=== PATIENT | female | born 1955 | race Caucasian/White ===

== ENCOUNTER → 2017-12-21 09:44 | Outpatient (CLI) | payer SELFPAY | PROVIDERS: Visit Provider Physician Assistant | DX: R39.9 Unspecified symptoms and signs involving the genitourinary system (principal) | CPT/HCPCS: 87086 ==

== ENCOUNTER → 2020-01-07 19:32 | Outpatient (ROUT) | payer OTHER, SELFPAY ==
[2020-01-07 19:37] LABS: Add Manual Diff / Slide Review NO; Basophils Absolute Auto 100 /uL (0-100); Basophils Percent Auto 1.1 % (0-2); Eosinophils Absolute Auto 200 /uL (0-450); Eosinophils Percent Auto 4.4 % (2-4); Hematocrit 41.1 % (36-46); Hemoglobin 14.1 g/dL (12.0-16.0); Lymphocytes Absolute Auto 1200 /uL (1100-4500); Lymphocytes Percent Auto 22.8 % (25-40); Mean Corpuscular HGB Conc 34.3 % (30-36); Mean Corpuscular Hemoglobin 32.3 PG (26-34); Mean Corpuscular Volume 94.1 fL (80-100); Monocytes Absolute Auto 500 /uL (0-900); Neutrophils Absolute Auto 3400 /uL (1500-7000); Neutrophils Percent Auto 61.7 % (50-75); Platelet Count 272 X10^3/uL (150-400); Red Blood Cell Count 4.37 X10^6/uL (4.0-5.2); White Blood Cell Count 5.5 X10^3/uL (4.5-11.0)
[2020-01-07 19:45] LABS: Alanine Aminotransferase 19 IU/L (<35); Albumin 3.7 g/dL (3.5-5.0); Albumin Globulin Ratio 1.2 (1.0-2.8); Alkaline Phosphatase 82 U/L (38-126); Aspartate Aminotransferase 26 IU/L (14-36); BUN Creatinine Ratio 26.4 (6-22); Bilirubin Total 0.4 mg/dL (0.2-1.3); Blood Urea Nitrogen 19 mg/dL (7-17); Carbon Dioxide 34 mmol/L (22-32); Chloride 99 mmol/L (98-107); Cholesterol 177 mg/dL (140-199); Estimated Glomerular Filt Rate > 60.0 mL/min (>60); Glucose 114 mg/dL (80-110); HDL Cholesterol 52 mg/dL (40-60); HEMOLYSIS < 15 (0-50); LDL Cholesterol Calculated 93 mg/dL (<100); Sodium 138 mmol/L (137-145); Total Protein 6.7 g/dL (6.3-8.2); Triglycerides 161 mg/dL (35-150)
[2020-01-07 20:15] LABS: TSH w/ Reflex to FT4 2.01 uIU/mL (0.47-4.68)
== END ==
PROVIDERS: Visit Provider Internal Medicine
DX: I10 Essential (primary) hypertension (principal); E03.9 Hypothyroidism, unspecified; E78.2 Mixed hyperlipidemia
CPT/HCPCS: 80053; 80061; 84443; 85025

== ENCOUNTER → 2020-05-28 19:54 | Outpatient (ROUT) | payer OTHER, SELFPAY | PROVIDERS: Visit Provider Physician Assistant | DX: N39.0 Urinary tract infection, site not specified (principal) | CPT/HCPCS: 87086 ==

== ENCOUNTER → 2020-06-30 18:49 | Outpatient (ROUT) | payer OTHER, SELFPAY ==
[2020-06-30 19:15] LABS: Aspartate Aminotransferase 29 IU/L (14-36); BUN Creatinine Ratio 19.5 (6-22); Blood Urea Nitrogen 15 mg/dL (7-17); Calcium 9.2 mg/dL (8.4-10.2); Carbon Dioxide 36 mmol/L (22-32); Chloride 97 mmol/L (98-107); Cholesterol 171 mg/dL (140-199); Estimated Glomerular Filt Rate > 60.0 mL/min (>60); Glucose 114 mg/dL (80-110); HDL Cholesterol 58 mg/dL (40-60); HEMOLYSIS < 15 (0-50); LDL Cholesterol Calculated 91 mg/dL (<100); Potassium 3.7 mmol/L (3.4-5.1); Sodium 134 mmol/L (137-145); Triglycerides 108 mg/dL (35-150)
[2020-06-30 19:45] LABS: TSH w/ Reflex to FT4 1.72 uIU/mL (0.47-4.68)
== END ==
PROVIDERS: Visit Provider Internal Medicine
DX: I10 Essential (primary) hypertension (principal); E78.2 Mixed hyperlipidemia; E03.9 Hypothyroidism, unspecified
CPT/HCPCS: 80048; 80061; 84443; 84450

== ENCOUNTER → 2020-07-19 10:40 | Outpatient (CLI) | payer OTHER, SELFPAY ==
--- NOTE | 2020-07-19 | DI.ECHO.S_ITS ---
[facility] +---------+ : : [address] : : : : [id number] : : : : Phone: [phone]+ Echocardiogram Report + + :Name: LELIA ARZATE Study Date: 07/19/2020 Height: 64 in : :[facility] ReadingLocation: Weight: 135 lb : : Gender: Female BSA: 1.7 m2 : :: 1955 Age: 65 yrs BP: 140/84 mmHg: :Reason For Study: RIGHTBINFLE-BRANCH BLOCK : :Ordering Physician: ZHANNA, : :ALEX Performed By: Manpreet Riley : :Referring: ALEX CHAO : + + Interpretation Summary Normal both left and right ventricle size and function. The ejection fraction is 60-65%. Mild aortic valve sclerosis. Mild mitral annular calcification. Procedure: A two-dimensional transthoracic echocardiogram with color flow and Doppler was performed. The study quality was technically difficult. There is no prior echocardiogram noted for this patient. The patient was in sinus rhythm with heart rates between 59-67 bpm during the exam. Left Ventricle: The left ventricle is normal in size and wall thickness. The ejection fraction is estimated to be 60-65%. There are no focal wall motion abnormalities. Diastolic function could not be accurately assessed due to unobtainable data. Right Ventricle: The right ventricle is normal in size and function. Atria: Both atria are normal in size. There is no Doppler evidence for an interatrial shunt. Mitral Valve: There is mild mitral annular calcification. There is trace mitral regurgitation. Aortic Valve: There is mild aortic valve sclerosis. There is trace aortic regurgitation. Tricuspid Valve: The tricuspid valve is normal in structure and function. There is a trace or physiologic amount of tricuspid regurgitation. Pulmonary artery pressures cannot be estimated because of the lack of a measurable TR jet velocity but the IVC suggests a CVP of around 3 mmHg. Pulmonic Valve: The pulmonic valve is not well seen, but is grossly normal. There is no pulmonic valvular regurgitation. Great Vessels: The aortic root is normal size. The ascending aorta could not be visualized. The IVC is of normal diameter and collapses greater than 50% with a sniff. This suggests a low right atrial pressure of 3 mm Hg. Pericardium/ Pleura There is no pericardial effusion. There is no pleural effusion. MMode/2D Measurements & Calculations LVIDd: 4.0 cm LVOT diam: 2.1 cm LVIDs: 2.2 cm Ao root diam: 3.5 cm FS: 44.6 % IVSd: 0.93 cm LVPWd: 0.70 cm LV pace. diameter/BSA (cm/m^2): 2.4 LV sys. diameter/BSA (cm/m^2): 1.3 LA A2 area: 7.5 cm2 RA long axis: 4.2 cm LA A4 area: 13.4 cm2 RA area: 12.7 cm2 LA length (vol): 4.6 cm RA vol: 32.6 ml LA vol: 18.6 ml RA : 19.7 ml/m2 LA vol index: 11.2 ml/m2 TAPSE: 2.8 cm Doppler Measurements & Calculations Ao V2 max: 101.4 cm/sec LVOT Max Naseem: 93.6 cm/sec Ao V2 mean: 72.9 cm/sec LV V1 max P.5 mmHg Ao max P.1 mmHg LV V1 VTI: 22.2 cm Ao mean P.3 mmHg ARMANDO(I,D): 3.4 cm2 Ao V2 VTI: 23.5 cm ARMANDO(V,D): 3.3 cm2 sev ratio: 0.95 ARMANDO indexed to BSA (cm^2/m^2): 2.1 MV E max naseem: 75.5 cm/sec PA V2 max: 74.7 cm/sec MV A max naseem: 66.5 cm/sec PA V2 mean: 57.8 cm/sec MV E/A: 1.1 PA mean P.5 mmHg Med Peak E' Naseem: 6.4 cm/sec PA pr(Accel): 30.2 mmHg E/E' med: 11.7 Lat Peak E' Naseem: 6.8 cm/sec E/E' lat: 11.2 E/e' average: 11.4 MV dec time: 0.22 sec SV(LVOT): 80.0 ml Electronically signed by: [place] on Reading Physician:07/19/2020 01:07 PM
== END ==
PROVIDERS: PCP Internal Medicine; Referring Provider Internal Medicine; Visit Provider Internal Medicine
DX: I35.8 Other nonrheumatic aortic valve disorders (principal); I45.10 Unspecified right bundle-branch block
CPT/HCPCS: 93306

== ENCOUNTER → 2020-09-23 10:40 | Outpatient (CLI) | payer OTHER, SELFPAY ==
--- NOTE | 2020-09-23 | DI.MG.S_ITS ---
BILATERAL DIGITAL SCREENING MAMMOGRAM 3D/2D WITH CAD: 09/23/2020 CLINICAL: Routine screening. Comparison is made to exams dated: 06/11/2016 mammogram, 07/29/2018 mammogram, and 09/23/2019 mammogram - outside facility. There are scattered fibroglandular elements in both breasts. Current study was also evaluated with a Computer Aided Detection (CAD) system. No significant masses, calcifications, or other findings are seen in either breast. There has been no significant interval change. IMPRESSION: NEGATIVE There is no mammographic evidence of malignancy. A 1 year screening mammogram is recommended. This exam was interpreted at Station ID: [id number]. NOTE: For mammograms, a report in lay terms will be sent to the patient. Approximately 15% of breast malignancies will not be visualized mammographically. In the management of a palpable breast mass, a negative mammogram must not discourage biopsy of a clinically suspicious lesion. Electronically Signed By: Génesis león/james:09/23/2020 11:43:31 letter sent: Normal Exam ACR BI-RADS Category 1: Negative [id number]
== END ==
PROVIDERS: PCP Internal Medicine; Referring Provider Internal Medicine; Visit Provider Internal Medicine
DX: Z12.31 Encounter for screening mammogram for malignant neoplasm of breast (principal)
CPT/HCPCS: 77063; 77067

== ENCOUNTER → 2020-12-20 13:05 | Outpatient (CLI) | payer OTHER, SELFPAY ==
[2020-12-20 15:53] LABS: COVID19 -Nasal RAPID Negative (Negative)
== END ==
PROVIDERS: PCP Internal Medicine; Visit Provider Physician Assistant
DX: Z20.822 Contact with and (suspected) exposure to COVID-19 (principal); R53.83 Other fatigue
CPT/HCPCS: 87635

== ENCOUNTER → 2021-05-10 14:10 | Outpatient (CLI) | payer OTHER, SELFPAY ==
--- NOTE | 2021-05-10 | DI.RAD.S_ITS ---
PROCEDURE: XR DEXA AXIAL SKELETON INDICATIONS: Encounter for screening for osteoporosis COMPARISON: None. FINDINGS: This blank DEXA report has been sent in error by the PACS system. The correct and complete report will be forthcoming in 1-2 days. Thank you for your patience and understanding. Dictated by: Roseline Jarvis MD, PhD on 05/11/2021 at 17:54 Approved by: Roseline Jarvis MD, PhD on 05/11/2021 at 17:54
== END ==
PROVIDERS: PCP Internal Medicine; Referring Provider Obstetrics & Gynecology; Visit Provider Obstetrics & Gynecology
DX: Z78.0 Asymptomatic menopausal state (principal); Z13.820 Encounter for screening for osteoporosis; E07.9 Disorder of thyroid, unspecified
CPT/HCPCS: 77080

== ENCOUNTER → 2021-05-20 16:04 | Outpatient (CLI) | payer OTHER, SELFPAY ==
--- NOTE | 2021-05-20 16:06 | DI.RAD.S_ITS ---
PROCEDURE: XR ANKLE RT MIN 3V INDICATIONS: right ankle pain TECHNIQUE: 3 views of the ankle were acquired. COMPARISON: None. FINDINGS: Bones: Corticated ossicles adjacent to the medial malleolus consistent with old injury. No evidence of acute fracture. Ankle mortise is maintained. Instrumentation noted associated with the proximal 1st metatarsal, partially imaged Soft tissues: No tibiotalar joint effusion. Achilles tendon appears normal. IMPRESSION: No acute fracture or dislocation. Sequelae of prior medial malleolar injury. First metatarsal instrumentation Approved by: German Maria M.D. on 05/20/2021 at 15:38
== END ==
PROVIDERS: PCP Internal Medicine; Referring Provider Nurse Practitioner Family; Visit Provider Nurse Practitioner Family
DX: M25.571 Pain in right ankle and joints of right foot (principal)
CPT/HCPCS: 73610

== ENCOUNTER → 2022-07-10 12:13 | Outpatient (CLI) | payer OTHER, SELFPAY ==
--- NOTE | 2022-07-10 12:15 | DI.RAD.S_ITS ---
PROCEDURE: XR FOOT LT MIN 3V INDICATIONS: foot pain TECHNIQUE: 3 views of the foot were acquired. COMPARISON: None. FINDINGS: Bones: Markedly abnormal appearance of the 1st metatarsophalangeal joint. There is osteolysis and remodeling of the 1st metatarsal base and 1st metatarsal head. Densities are seen projecting over the joint space that could represent prior silastic implant. Scattered degenerative changes are seen at the interphalangeal joints of the toes. There are moderate to severe degenerative changes at the tarsometatarsal joints and navicular cuneiform articulations. Small posterior calcaneal enthesophyte. Soft tissues: Nonspecific soft tissue edema in the forefoot. IMPRESSION: 1. Abnormal appearance of the 1st metatarsophalangeal joint, which may be related to prior surgery and secondary osteolysis versus possibly a chronic inflammatory or infectious process. Intra-articular or intraosseous mass is not excluded. Recommend correlation with clinical history. Consider MRI of the forefoot for further evaluation. 2. Moderate to severe degenerative changes in the tarsometatarsal joints including dorsally projecting osteophytes. Approved by: Nathanael Frias M.D. on 07/10/2022 at 14:38
== END ==
PROVIDERS: PCP Internal Medicine; Referring Provider Internal Medicine; Visit Provider Internal Medicine
DX: M89.572 Osteolysis, left ankle and foot (principal); M77.32 Calcaneal spur, left foot; M79.672 Pain in left foot
CPT/HCPCS: 73630

== ENCOUNTER → 2022-08-02 10:35 | Outpatient (CLI) | payer OTHER, SELFPAY ==
[2022-08-02 12:53] LABS: Hematocrit 42.8 % (36-46); Mean Corpuscular HGB Conc 35.1 % (30-36); Mean Corpuscular Hemoglobin 32.2 PG (26-34); Mean Corpuscular Volume 91.8 fL (80-100); Platelet Count 264 X10^3/uL (150-400); Red Blood Cell Count 4.67 X10^6/uL (4.0-5.2); Red Cell Distribution Width 13.4 % (11.6-14.8); White Blood Cell Count 5.7 X10^3/uL (4.5-11.0)
[2022-08-02 13:32] LABS: Alanine Aminotransferase 40 IU/L (<35); Albumin 3.9 g/dL (3.5-5.0); Albumin Globulin Ratio 1.3 (1.0-2.8); Alkaline Phosphatase 92 U/L (38-126); Aspartate Aminotransferase 35 IU/L (14-36); BUN Creatinine Ratio 29.3 (6-22); Bilirubin Total 0.4 mg/dL (0.2-1.3); Blood Urea Nitrogen 17 mg/dL (7-17); Calcium 8.8 mg/dL (8.4-10.2); Carbon Dioxide 32 mmol/L (22-32); Chloride 97 mmol/L (98-107); Cholesterol 135 mg/dL (140-199); Estimated Glomerular Filt Rate > 60 mL/min (>60); Globulin 3.1 g/dL (1.7-4.1); Glucose 79 mg/dL (80-110); HDL Cholesterol 63 mg/dL (40-60); HEMOLYSIS < 15 (0-50); LDL Cholesterol Calculated 36 mg/dL (<100); Potassium 4.4 mmol/L (3.4-5.1); Sodium 136 mmol/L (137-145); Triglycerides 178 mg/dL (35-150)
[2022-08-02 13:53] LABS: TSH w/ Reflex to FT4 0.82 uIU/mL (0.47-4.68)
== END ==
PROVIDERS: PCP Internal Medicine; Referring Provider Internal Medicine; Visit Provider Internal Medicine
DX: E03.9 Hypothyroidism, unspecified (principal); E78.2 Mixed hyperlipidemia; I10 Essential (primary) hypertension
CPT/HCPCS: 36415; 80053; 80061; 84443; 85027

== ENCOUNTER → 2022-10-10 14:21 | Outpatient (CLI) | payer OTHER, SELFPAY | PROVIDERS: PCP Internal Medicine; Visit Provider Student in an Organized Health Care Education/Training Program | DX: N39.0 Urinary tract infection, site not specified (principal) | CPT/HCPCS: 87077; 87086; 87186 ==

== ENCOUNTER 2022-10-20 12:32 | Day surgery (SDC) | payer OTHER, SELFPAY ==
[2022-10-20] VITALS (7 sets, daily range): BP systolic 107–155; BP diastolic 42–73; PULSE 59–86; RESP 12–22; TEMP 36.3; O2SAT 96–100; BMI 21.6
--- NOTE | 2022-10-20 | PATH_ITS ---
[facility] Accession Number: [id number] No. of containers..01 Tissue . 01 Material submitted: . colon - DESCENDING COLON POLYP . 01 Diagnosis: Descending Colon Polyp: Superficial portion of colorectal mucosa x1 with a benign lymphoid aggregate and no significant histomorphologic abnormality. Additional levels through the block are non-contributory. MRV 11/01/2022 1701 Local . 01 Electronically signed: . Rylie Thomas MD, Pathologist NPI- [id number] . 01 Gross description: . DESCENDING COLON POLYP: Received in formalin is 1 fragment(s) of luciano, soft tissue measuring 0.2 x 0.2 x 0.2 cm submitted entirely in 1 cassette(s) /SAY 10/27/2022 2335 Local . 01 Pathologist provided ICD-10: K63.5 . 01 CPT . 519126 Specimen Comment: A courtesy copy of this report has been sent to [facility] Performed at: 01 [facility] [address] [place] [address] [address], [place], [place] [id number] MD Ricardo Bhatti MD Phone: [phone]
[2022-10-20] MEDS: LACTATED RINGERS 1,000 ML 42 ML IV (13:22)
--- NOTE | 2022-10-20 14:10 | PM.HP.1 ---
History of Present Illness History of Present Illness Date Patient Seen: 10/20/22 Time Patient Seen: 14:11 Chief complaint: Colonoscopy Narrative: Ms. Archuleta is a 67-year-old female who presents today for a screening colonoscopy. Her last 1 was about 10 years ago in [place], [place]. She believes that she had many diverticula, but no polyps. I did receive the report dated 02/03/[address] Troy Buckley at the [facility] in [facility]. This report notes that there are moderate sigmoid diverticulosis with mychosis (a shortened thickening of the colon due to diverticulitis) as well as a tortuous and spastic colon. No notation of a polyp is seen; 7-10 year follow-up is recommended. She has no family history of colon cancer and no symptoms of bleeding changes in bowel habits or cramping abdominal pain which are concerning to her. She has no further questions or concerns. 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 Diverticular disease of colon (~2005) Essential hypertension Fibromyalgia Generalized anxiety disorder Mixed hyperlipidemia Recurrent UTI Thyroid cancer (~1993) Surgical History Status post foot surgery Status post nasal septoplasty (04/04/17) Status post thyroidectomy (~03/1994) Status post total right knee replacement (09/10/17) Social History household members: spouse Smoking Status: Never smoker alcohol intake: never Meds Home Medications and Allergies Home Medications Medication Instructions Recorded Confirmed Type levothyroxine 100 mcg tablet 100 mcg PO DAILY 07/03/22 10/20/22 History duloxetine 60 mg capsule,delayed 60 mg PO DAILY #90 caps 08/02/22 10/20/22 Rx release ezetimibe 10 mg tablet 10 mg PO DAILY #90 tabs 08/02/22 10/20/22 Rx nitrofurantoin 100 mg PO DAILY PRN uti prevention 08/02/22 10/20/22 Rx monohydrate/macrocrystals 100 mg #30 caps capsule (Macrobid) diclofenac sodium 1 % topical gel 4 g topical QID PRN joint pain 09/14/22 10/20/22 Rx #100 grams irbesartan 75 mg tablet 75 mg PO DAILY #90 tabs 09/14/22 10/20/22 Rx rosuvastatin 40 mg tablet 40 mg PO DAILY #90 tabs 09/14/22 10/20/22 Rx peg 3350-electrolytes 236 240 ml PO Q10M #4,000 mL 10/16/22 10/20/22 Rx gram-22.74 gram-6.74 gram-5.86 gram solution (Golytely) Allergies Allergy/AdvReac Type Severity Reaction Status Date / Time phenylephrine AdvReac Mild Hypertensio Verified 10/20/22 12:57 n Exam Vital Signs (past 8 hours): - 10/20/22 13:03 Temperature 97.3 F L Pulse Rate 66 Respiratory Rate 16 Blood Pressure 155/66 H Pulse Oximetry 98 Oxygen Delivery Method Room Air Oxygen Delivery Method Room Air Const General: cooperative, healthy appearing, comfortable and well developed Orientation: alert, awake and oriented x3 HENMT Head: normal to inspection Ears: hearing grossly normal bilaterally Eyes General: appearance normal, both eyes and all related structures Resp Effort & Inspection: normal respiratory effort and able to speak in complete sentences GI Palpation: soft and No tender Assessment & Plan Assessment and plan (1) Colon cancer screening: Status: Acute Assessment & Plan narrative: Presents today for screening colonoscopy I discussed the risks benefits and alternatives including but not limited to perforation of the colon and an incomplete exam she fully understands these risks and would like to proceed.
--- NOTE | 2022-10-20 15:00 | PM.OP.COLON ---
Operative Date/Time/Diagnoses Date of procedure: 10/20/22 Time of procedure: 15:01 Pre-op diagnosis: Colonoscopy screening Post-op diagnosis: same Procedure & Clinicians Study performed: Colonoscopy and biopsy Indications: Screening for colon cancer average risk Surgeon: Tiffanie Rich Procedure Notes Procedure in detail: Patient was taken to the endoscopy suite and placed in a left lateral decubitus position. A time-out was performed. With the help of anesthesiology provider, conscious sedation was induced and monitored throughout the case. A digital rectal exam was performed and there were no masses or strictures. The colonoscope was introduced into the anal canal and advanced through to the cecum. There were several large extreme diverticula. The sigmoid colon was very tortuous and somewhat difficult to traverse. Several diverticula photographs were obtained. The scope was successfully maneuvered through the entire colon and a photograph of the appendiceal orifice was obtained. The bowel prep was good [place] bowel prep score of 2. The scope was then withdrawn for a total of 14 minutes and only 1 very small polyp was seen in the descending colon was removed and sent for pathology.. The scope was then retroflexed and a photograph of the internal hemorrhoidal piles was obtained. Findings: divertiulosis and polyp(s) Specimen(s): other (One very small descending colon polyp) Impression: Serious diverticula in the sigmoid colon Post-procedure Plan for aftercare: 7-10 year follow-up based on pathology results. Given this was a small polyp probably going to end up in the 10 year range. There were huge diverticula and I strongly recommend a twice daily fiber supplement.
== END 2022-10-20 16:03 | disposition home or self-care (01) ==
PROVIDERS: PCP Internal Medicine; Referring Provider Surgery; Visit Provider Surgery
PROC: 0DJD8ZZ Inspection of Lower Intestinal Tract, Via Natural or Artificial Opening Endoscopic (ICD-10-PCS; CPT 45378; principal; 2022-10-20 13:45)
DX: Z12.11 Encounter for screening for malignant neoplasm of colon (principal); K57.30 Diverticulosis of large intestine without perforation or abscess without bleeding
CPT/HCPCS: 45380; J2704

== ENCOUNTER → 2022-10-25 14:00 | Outpatient (CLI) | payer OTHER, SELFPAY ==
[2022-10-25 15:07] LABS: Appearance Urine UA CLEAR; Bilirubin Urine UA NEGATIVE (NEGATIVE); Color Urine UA YELLOW; Glucose Urine UA NEGATIVE (Negative); Ketones Urine UA NEGATIVE (NEGATIVE); Leukocyte Esterase Urine UA 1+ (NEGATIVE); Nitrite Urine UA NEGATIVE (Negative); Occult Blood Urine UA NEGATIVE (Negative); Protein Urine UA NEGATIVE (Negative); Specific Gravity Urine UA <=1.005 (1.000-1.035); Urobilinogen Urine UA 0.2 E.U./dL (0.2)
[2022-10-25 15:16] LABS: Bacteria Urine Occasional (0-1); Culture Indicated Urine Specimen Cultured; RBC Urine 0-1/HPF (0-5/HPF); Squamous Epithelial Cell Urine 0-1 /HPF (0-5/HPF); WBC Urine 1-5/HPF (0-5/HPF)
== END ==
PROVIDERS: PCP Internal Medicine; Referring Provider Internal Medicine; Visit Provider Internal Medicine
DX: N39.0 Urinary tract infection, site not specified (principal)
CPT/HCPCS: 81001; 87086

== ENCOUNTER → 2022-11-16 10:19 | Outpatient (CLI) | payer OTHER, SELFPAY ==
[2022-11-16 12:22] LABS: Appearance Urine UA CLEAR; Bilirubin Urine UA NEGATIVE (NEGATIVE); Color Urine UA YELLOW; Glucose Urine UA NEGATIVE (Negative); Ketones Urine UA NEGATIVE (NEGATIVE); Leukocyte Esterase Urine UA NEGATIVE (NEGATIVE); Nitrite Urine UA NEGATIVE (Negative); Occult Blood Urine UA NEGATIVE (Negative); Protein Urine UA NEGATIVE (Negative); Specific Gravity Urine UA <=1.005 (1.000-1.035); Urobilinogen Urine UA 0.2 E.U./dL (0.2)
[2022-11-16 12:47] LABS: Bacteria Urine None Seen; RBC Urine 0-1/HPF (0-5/HPF); Squamous Epithelial Cell Urine 0-1 /HPF (0-5/HPF); WBC Urine None Seen (0-5/HPF)
[2022-11-16 12:48] LABS: Culture Indicated Urine Cult Not Indicated
== END ==
PROVIDERS: PCP Internal Medicine; Referring Provider Internal Medicine; Visit Provider Internal Medicine
DX: R30.0 Dysuria (principal); R35.0 Frequency of micturition
CPT/HCPCS: 81001

== ENCOUNTER → 2022-12-15 17:32 | Outpatient (CLI) | payer OTHER, SELFPAY | PROVIDERS: PCP Internal Medicine; Visit Provider Physician Assistant | DX: R30.0 Dysuria (principal) | CPT/HCPCS: 87077; 87086; 87186 ==

== ENCOUNTER 2023-03-14 09:40 | Emergency (ER) | payer OTHER, SELFPAY ==
[2023-03-14] VITALS (11 sets, daily range): BP systolic 154–186; BP diastolic 68–83; PULSE 62–73; RESP 17–24; TEMP 36.8; O2SAT 97–98; BMI 21.6
--- NOTE | 2023-03-14 09:50 | DI.RAD.S_ITS ---
PROCEDURE: XR CHEST 1V INDICATIONS: chest pain TECHNIQUE: One view of the chest was acquired. COMPARISON: None. FINDINGS: Surgical changes and devices: None. Lungs and pleura: Lungs are clear. No pleural effusions or pneumothorax. Mediastinum: Mediastinal contours appear normal. Heart size is normal. Bones and chest wall: No suspicious bony lesions. Overlying soft tissues appear unremarkable. IMPRESSION: No acute cardiopulmonary findings. Dictated by: Claudia Montes De Oca M.D. on 03/14/2023 at 10:24 Approved by: Claudia Montes De Oca M.D. on 03/14/2023 at 10:25
--- NOTE | 2023-03-14 10:10 | ED.CHESTPAIN ---
HPI - Chest Pain General Chief Complaint: Chest Pain Stated Complaint: sent by [facility] slight chest pressure/tiredness/spacey Time Seen by Provider: 03/14/23 09:48 Source: patient, RN notes reviewed and old records reviewed Mode of arrival: Ambulatory Limitations: no limitations History of Present Illness HPI narrative: 67-year-old female history of hypertension, dyslipidemia, prior thyroid cancer with thyroidectomy on levothyroxine presents with complaint of feeling tired sort of spacey with what she describes as slight substernal chest pressure starting last night that has not been constant but intermittent with no shortness of breath. She is felt chilled last night but had no fevers, no cold cough or congestion. Denies any nausea or vomiting. Denies any diaphoresis. Patient states just felt tired after going grocery shopping yesterday morning slept for most of the day developed some chest pressure last night which is present this morning. She states it is currently not present at the moment. Denies any diarrhea or constipation, no swelling in extremities, no warmth or cramping in her legs. No issues with urination. Patient states she is had prior surgeries with thyroidectomy, right total knee, septoplasty for her sinuses and toe surgery x5 for arthritis. Adverse reaction to phenylephrine but no allergies. No tobacco, alcohol or illicit. Dr. Lo is her primary care. Patient has never had prior stress test or cardiac workup. She states her father in his late 60s from complications from a CABG. Patient does note they recently flew across the country she towards the end of January beginning of February all the way to the [facility] and back. She also notes that she would recent upper respiratory infection as beginning of the month was on Breo, as well as albuterol until the 09 of March and has felt improved since then until the last 24 hours. Related Data Home Medications Medication Instructions Recorded Confirmed L. acidophilus/Bifid. animalis 1 tab PO DAILY 01/03/23 03/14/23 [Daily Probiotic] dextrin [Fiber (dextrin)] 1 tsp PO DAILY 01/03/23 03/14/23 Previous Rx's Medication Instructions Recorded duloxetine 60 mg capsule,delayed 60 mg PO DAILY #90 caps 08/02/22 release ezetimibe 10 mg tablet 10 mg PO DAILY #90 tabs 08/02/22 nitrofurantoin 100 mg PO DAILY PRN uti prevention 08/02/22 monohydrate/macrocrystals 100 mg #30 caps capsule (Macrobid) diclofenac sodium 1 % topical gel 4 g topical QID PRN joint pain 09/14/22 #100 grams irbesartan 75 mg tablet 75 mg PO DAILY #90 tabs 09/14/22 rosuvastatin 40 mg tablet 40 mg PO DAILY #90 tabs 09/14/22 levothyroxine 100 mcg tablet 100 mcg PO DAILY #90 tabs 10/23/22 Allergies Allergy/AdvReac Type Severity Reaction Status Date / Time phenylephrine AdvReac Mild Hypertensio Verified 03/14/23 09:23 n Review of Systems Review of Systems ROS Unobtainable: All systems reviewed & are unremarkable except as noted in HPI and below Patient History Medical History Chronic low back pain Hx of papillary thyroid carcinoma Urinary incontinence Menopausal syndrome Recurrent UTI Degenerative arthritis of toe joint Fibromyalgia Generalized anxiety disorder Diverticular disease of colon (~2005) Acquired hypothyroidism Mixed hyperlipidemia Essential hypertension Degenerative joint disease of left ankle Surgical History Status post total right knee replacement (09/10/17) Status post nasal septoplasty (04/04/17) Status post thyroidectomy (~03/1994) Status post foot surgery Social History household members: spouse Smoking Status: Never smoker alcohol intake: never Smoking Status: Never smoker Substance Use Type: does not use Exam Narrative Exam Narrative: GEN: well nourished, well appearing female, alert and oriented x 3, patient appears to be in mild distress. HEENT: Atraumatic, pupils are equal round reactive to light, extraocular movements are intact, nares are clear, there is no conjunctival pallor. Throat is clear without any exudates, erythema, tonsillar enlargement or uvular deviation HEART: Regular rate and rhythm without murmur, clicks, rubs. Pulses equal bilateral lower extremities LUNGS:Lungs clear to auscultation, no wheezes, rales, crackles, chest moves symmetrically, no tachypnea or accessory muscle use, no swelling bilateral lower extremities or pedal edema. ABD:bowel sounds normal, soft, non-tender, no guarding, rebound, rigidity, no masses noted, no hepatosplenomegaly :No CVA tenderness MSCL: Non-tender, no muscle atrophy, muscles strength 5/5 upper and lower extremities, full range of motion, normal gait NEURO:CN 2-12 intact, sensation normal SKIN: No rash, erythema or other skin changes. Initial Vital Signs Initial Vital Signs: Vital Signs Temperature 98.3 F 03/14/23 09:45 Pulse Rate 70 03/14/23 09:45 Respiratory Rate 18 03/14/23 09:45 Blood Pressure 166/78 H 03/14/23 09:45 Pulse Oximetry 98 03/14/23 09:45 Oxygen Delivery Method Room Air 03/14/23 09:45 Course Orders Ordered: ED Orders 03/14/23 09:50 XR chest 1V Stat EKG-12 Lead Stat 03/14/23 10:08 BNP [NT-proBNP (BNP-Adult 18+)] Stat Complete Blood Count AUTO DIFF Stat Comprehensive Metabolic Panel Stat Lipase Stat Magnesium Stat PTT Partial Thromboplastin Jacob Stat Prothrombin Time INR Stat Troponin & CK Cardiac Panel Stat 03/14/23 10:16 Covid-19 + FLU A/B + RSV - PCR Stat 03/14/23 11:13 D Dimer Stat 03/14/23 12:08 Trop I [Troponin I] Stat 03/14/23 12:15 EKG-12 Lead Routine Discontinued Medications Aspirin (Aspirin 81 Mg Chew Tab) 324 mg PO NOW ONE Stop: 03/14/23 09:51 Last Admin: 03/14/23 11:53 Dose: Not Given Documented By: RLS Vital Signs Vital signs: Vital Signs - 8 hr 03/14/23 10:00 03/14/23 10:08 03/14/23 10:08 Pulse Rate 64 63 Respiratory Rate 20 Blood Pressure 177/79 H Pulse Oximetry 98 Oxygen Delivery Method Room Air 03/14/23 10:30 03/14/23 10:30 03/14/23 11:00 Pulse Rate 65 65 Respiratory Rate 17 Blood Pressure 186/77 H Pulse Oximetry 98 98 Oxygen Delivery Method 03/14/23 11:30 03/14/23 12:00 03/14/23 12:00 Pulse Rate 63 63 Respiratory Rate 21 23 Blood Pressure 176/81 H Pulse Oximetry 98 97 Oxygen Delivery Method Room Air 03/14/23 12:30 03/14/23 12:30 03/14/23 13:00 Pulse Rate 62 63 Respiratory Rate 23 21 Blood Pressure 177/83 H Pulse Oximetry 97 Oxygen Delivery Method Room Air 03/14/23 13:30 03/14/23 14:04 Pulse Rate 73 69 Respiratory Rate 24 18 Blood Pressure 154/68 H Pulse Oximetry 97 Oxygen Delivery Method Room Air MDM - Chest Pain Lab Data 03/14/23 10:08 03/14/23 10:08 Labs: Lab Results 03/14/23 03/14/23 03/14/23 Range/Units 10:08 10:16 11:13 WBC 5.0 (4.5-11.0) X10^3/uL RBC 4.65 (4.0-5.2) X10^6/uL Hgb 14.8 (12.0-16.0) g/dL Hct 43.4 (36-46) % MCV 93.4 (80-100) fL MCH 31.9 (26-34) PG MCHC 34.1 (30-36) % RDW 13.0 (11.6-14.8) % Plt Count 257 (150-400) X10^3/uL Neut % (Auto) 66.3 (50-75) % Lymph % (Auto) 21.8 L (25-40) % [place] % (Auto) 7.7 (3-14) % Eos % (Auto) 3.5 (2-4) % Baso % (Auto) 0.7 (0-2) % Neut # (Auto) 3300 (0132-0356) /uL Lymph # (Auto) 1100 (0930-3369) /uL [place] # (Auto) 400 (0-900) /uL Eos # (Auto) 200 (0-450) /uL Baso # (Auto) 0 (0-100) /uL PT 11.5 (9.4-12.5) SECONDS INR 1.0 (0.9-1.3) APTT 32 (25.1-36.5) SECONDS D-Dimer 465 (<500) ng/ml Sodium 135 L (137-145) mmol/L Potassium 3.7 (3.4-5.1) mmol/L Chloride 96 L (98-107) mmol/L Carbon Dioxide 35 H (22-32) mmol/L BUN 11 (7-17) mg/dL Creatinine 0.61 (0.52-1.04) mg/dL Estimated GFR > 60 (>60) mL/min BUN/Creatinine Ratio 18.0 (6-22) Glucose 98 (80-110) mg/dL Calcium 9.0 (8.4-10.2) mg/dL Magnesium 2.0 (1.6-2.3) mg/dL Total Bilirubin 0.7 (0.2-1.3) mg/dL AST 31 (14-36) IU/L ALT 27 (<35) IU/L Alkaline Phosphatase 67 (38-126) U/L Total Creatine Kinase 93 (30-135) U/L Troponin I < 0.012 (0.01-0.034) ng/mL NT-Pro-B Natriuret Pep 103 (<125) pg/mL Total Protein 7.3 (6.3-8.2) g/dL Albumin 4.0 (3.5-5.0) g/dL Globulin 3.3 (1.7-4.1) g/dL Albumin/Globulin Ratio 1.2 (1.0-2.8) Lipase 79 (23-300) U/L SARS-CoV-2 (PCR) Negative (Negative) Influenza A (RT-PCR) Flu a negative (NEGATIVE) Influenza B (RT-PCR) Flu b negative (NEGATIVE) RSV (PCR) Negative (Negative) 03/14/23 Range/Units 12:08 WBC (4.5-11.0) X10^3/uL RBC (4.0-5.2) X10^6/uL Hgb (12.0-16.0) g/dL Hct (36-46) % MCV (80-100) fL MCH (26-34) PG MCHC (30-36) % RDW (11.6-14.8) % Plt Count (150-400) X10^3/uL Neut % (Auto) (50-75) % Lymph % (Auto) (25-40) % [place] % (Auto) (3-14) % Eos % (Auto) (2-4) % Baso % (Auto) (0-2) % Neut # (Auto) (3221-2786) /uL Lymph # (Auto) (1657-8619) /uL [place] # (Auto) (0-900) /uL Eos # (Auto) (0-450) /uL Baso # (Auto) (0-100) /uL PT (9.4-12.5) SECONDS INR (0.9-1.3) APTT (25.1-36.5) SECONDS D-Dimer (<500) ng/ml Sodium (137-145) mmol/L Potassium (3.4-5.1) mmol/L Chloride (98-107) mmol/L Carbon Dioxide (22-32) mmol/L BUN (7-17) mg/dL Creatinine (0.52-1.04) mg/dL Estimated GFR (>60) mL/min BUN/Creatinine Ratio (6-22) Glucose (80-110) mg/dL Calcium (8.4-10.2) mg/dL Magnesium (1.6-2.3) mg/dL Total Bilirubin (0.2-1.3) mg/dL AST (14-36) IU/L ALT (<35) IU/L Alkaline Phosphatase (38-126) U/L Total Creatine Kinase (30-135) U/L Troponin I 0.014 (0.01-0.034) ng/mL NT-Pro-B Natriuret Pep (<125) pg/mL Total Protein (6.3-8.2) g/dL Albumin (3.5-5.0) g/dL Globulin (1.7-4.1) g/dL Albumin/Globulin Ratio (1.0-2.8) Lipase (23-300) U/L SARS-CoV-2 (PCR) (Negative) Influenza A (RT-PCR) (NEGATIVE) Influenza B (RT-PCR) (NEGATIVE) RSV (PCR) (Negative) Imaging Data Chest x-ray: Radiologist's Impression: Close Chest X-Ray (Signed) Claudia Montes De Oca - 03/14/23 DI Result CC 11/20/22 Foot X-Ray (Signed) Nathanael Frias - 07/10/22 Ankle X-Ray (Signed) German Maria - 05/20/21 Bone Densitometry (Signed) Roseline Jarvis - 05/10/21 Mammogram Screening (Signed) Génesis Romeo - 09/23/20 Echocardiogram Ultrasound (Signed) [place] - 03/29/21 Launch?[address] [address] XRay Report Signed Patient: Emily Archuleta MR#: [id number] : 1955 Acct:[id number] Age/Sex: 67 / F Date of Service: 03/14/23 Loc: ED Accession Number: [id number] Procedure: XR chest 1V Ordering Provider: Tiana Almodovar D.O. PROCEDURE: XR CHEST 1V INDICATIONS: chest pain TECHNIQUE: One view of the chest was acquired. COMPARISON: None. FINDINGS: Surgical changes and devices: None. Lungs and pleura: Lungs are clear. No pleural effusions or pneumothorax. Mediastinum: Mediastinal contours appear normal. Heart size is normal. Bones and chest wall: No suspicious bony lesions. Overlying soft tissues appear unremarkable. IMPRESSION: No acute cardiopulmonary findings. Dictated by: Claudia Montes De Oca M.D. on 03/14/2023 at 10:24 Approved by: Claudia Montes De Oca M.D. on 03/14/2023 at 10:25 ECG Data Attestation: I personally reviewed and interpreted this ECG as follows: Prior ECG tracings: not available for review Interpretation: Sinus rhythm rate of 65 [place] 172 QRS of 144 QTC of 465. No acute ST elevation appreciated, patient has RSR consistent with right bundle-branch. No priors available for comparison. EKG 2. rate of 61, pr 164, qrs 152, qtc 486. No acute ST changes. RBBB. No dynamic changes. MDM Narrative Medical decision making narrative: 67-year-old female with history of hypertension, dyslipidemia, recent travel patient does not appear to have any obvious upper respiratory symptoms, CBC shows no acute change no leftward shift, coags are negative, renal function electrolytes are appropriate. BNP and troponin are both negative. LFTs are negative lipase is negative for flex COVID/influenza/RSV is negative. EKG shows right bundle-branch block no priors for comparison. Chest x-ray showed no acute change. Patient has had recent long-distance travel does not appear to have any tachycardia, hypoxia but is not anticoagulated any form including aspirin. D-dimer was ordered and is negative. Repeat troponin negative but did trend upwards. Repeat EKG is negative. Discussed with patient about observation for chest pain observation. We do not have stress testing available tomorrow. After discussion with patient she would rather be discharged home for follow up outpatient rather than attempt to transfer to facility that would have stress testing in the next 24 hours. Discussed return precautions. Patient will take an 81 mg aspirin daily and reach out to her primary care today to set up follow-up for stress testing as an outpatient. Discharge Plan Departure Patient Disposition: Home Clinical Impression: Chest pain Instructions: DI for Chest Pain Activity Restrictions/Additional Instructions: Follow-up with your physician for recheck and discussion about stress testing. Please return for new or worsening symptoms recurrent chest pain or pressure, shortness of breath, lightheadedness or passing out, persistent nausea or vomiting new swelling in your extremities or other new or concerning changes. Prescriptions: No Action diclofenac sodium 1 % gel 4 g topical QID PRN (Reason: joint pain) Qty: 100 0RF Rx Instructions: apply to single elbow, wrist or hand; for hand includes palm/fingers/back of hand irbesartan 75 mg tablet 75 mg PO DAILY Qty: 90 3RF rosuvastatin 40 mg tablet 40 mg PO DAILY Qty: 90 3RF levothyroxine 100 mcg tablet 100 mcg PO DAILY Qty: 90 3RF duloxetine 60 mg capsule,delayed release(DR/EC) 60 mg PO DAILY Qty: 90 3RF ezetimibe 10 mg tablet 10 mg PO DAILY Qty: 90 3RF nitrofurantoin monohyd/m-cryst [Macrobid] 100 mg capsule 100 mg PO DAILY PRN (Reason: uti prevention) Qty: 30 5RF Rx Instructions: prior to sexual intercourse. L. acidophilus/Bifid. animalis [Daily Probiotic] 1 tab PO DAILY dextrin [Fiber (dextrin)] 1 tsp PO DAILY Referrals: Juancarlos Lo MD [Primary Care Provider] - Stand Alone Forms: Patient Portal/API
[2023-03-14 10:16] LABS: Add Manual Diff / Slide Review NO; Basophils Absolute Auto 0 /uL (0-100); Basophils Percent Auto 0.7 % (0-2); Eosinophils Absolute Auto 200 /uL (0-450); Eosinophils Percent Auto 3.5 % (2-4); Hematocrit 43.4 % (36-46); Hemoglobin 14.8 g/dL (12.0-16.0); Lymphocytes Absolute Auto 1100 /uL (1100-4500); Lymphocytes Percent Auto 21.8 % (25-40); Mean Corpuscular HGB Conc 34.1 % (30-36); Mean Corpuscular Hemoglobin 31.9 PG (26-34); Mean Corpuscular Volume 93.4 fL (80-100); Monocytes Absolute Auto 400 /uL (0-900); Monocytes Percent Auto 7.7 % (3-14); Neutrophils Absolute Auto 3300 /uL (1500-7000); Neutrophils Percent Auto 66.3 % (50-75); Platelet Count 257 X10^3/uL (150-400); Red Blood Cell Count 4.65 X10^6/uL (4.0-5.2)
[2023-03-14 10:23] LABS: Prothrombin Time 11.5 SECONDS (9.4-12.5)
[2023-03-14 10:26] LABS: PTT Partial Thromboplastin Tim 32 SECONDS (25.1-36.5)
[2023-03-14 10:28] LABS: Alanine Aminotransferase 27 IU/L (<35); Albumin Globulin Ratio 1.2 (1.0-2.8); Alkaline Phosphatase 67 U/L (38-126); Aspartate Aminotransferase 31 IU/L (14-36); Bilirubin Total 0.7 mg/dL (0.2-1.3); Blood Urea Nitrogen 11 mg/dL (7-17); Carbon Dioxide 35 mmol/L (22-32); Chloride 96 mmol/L (98-107); Creatine Kinase 93 U/L (30-135); Estimated Glomerular Filt Rate > 60 mL/min (>60); Globulin 3.3 g/dL (1.7-4.1); Glucose 98 mg/dL (80-110); HEMOLYSIS < 15 (0-50); Lipase 79 U/L (23-300); Potassium 3.7 mmol/L (3.4-5.1); Sodium 135 mmol/L (137-145); Total Protein 7.3 g/dL (6.3-8.2)
[2023-03-14 10:37] LABS: NT-proBNP (BNP-Adult 18+) 103 pg/mL (<125)
[2023-03-14 10:40] LABS: Troponin I < 0.012 ng/mL (0.01-0.034)
[2023-03-14 11:02] LABS: Influenza A - CEPHEID Flu A NEGATIVE (NEGATIVE); Influenza B - CEPHEID Flu B NEGATIVE (NEGATIVE); Respiratory Syncytial Virus Negative (Negative)
[2023-03-14 11:12] LABS: COVID-19 CEPHEID 4-PLEX PCR Negative (Negative)
[2023-03-14 12:25] LABS: D Dimer 465 ng/ml (<500)
[2023-03-14 12:50] LABS: Troponin I 0.014 ng/mL (0.01-0.034)
== END 2023-03-14 14:05 | disposition home or self-care (01) ==
PROVIDERS: Emergency Provider Emergency Medicine; PCP Internal Medicine
DX: R07.9 Chest pain, unspecified (principal); R53.83 Other fatigue
CPT/HCPCS: 0241U; 36415; 71045; 80053; 82550; 83690; 83735; 83880; 84484; 85025; 85379; 85610; 85730; 93005; 93010; 99284

== ENCOUNTER → 2023-04-09 11:55 | Outpatient (CLI) | payer OTHER, SELFPAY ==
[2023-04-09 12:15] LABS: Appearance Urine UA CLEAR; Bilirubin Urine UA NEGATIVE (NEGATIVE); Color Urine UA YELLOW; Glucose Urine UA NEGATIVE (Negative); Ketones Urine UA NEGATIVE (NEGATIVE); Leukocyte Esterase Urine UA 1+ (NEGATIVE); Nitrite Urine UA NEGATIVE (Negative); Occult Blood Urine UA TRACE-INTACT (Negative); Protein Urine UA NEGATIVE (Negative); Specific Gravity Urine UA <=1.005 (1.000-1.035); Urobilinogen Urine UA 0.2 E.U./dL (0.2)
[2023-04-09 12:20] LABS: Bacteria Urine None Seen; RBC Urine None Seen (0-5/HPF); Squamous Epithelial Cell Urine 0-1 /HPF (0-5/HPF); WBC Urine 1-5/HPF (0-5/HPF)
[2023-04-09 12:21] LABS: Culture Indicated Urine Cult Not Indicated
== END ==
PROVIDERS: PCP Internal Medicine; Visit Provider Nurse Practitioner Family
DX: R30.0 Dysuria (principal); N39.0 Urinary tract infection, site not specified
CPT/HCPCS: 81001; 87086

== ENCOUNTER → 2023-04-26 10:13 | Outpatient (CLI) | payer OTHER, SELFPAY | PROVIDERS: Family Provider Internal Medicine; PCP Internal Medicine; Visit Provider Physician Assistant | DX: R30.0 Dysuria (principal); R35.0 Frequency of micturition | CPT/HCPCS: 87077; 87086; 87186 ==

== ENCOUNTER → 2023-05-03 08:59 | Outpatient (CLI) | payer OTHER, SELFPAY ==
--- NOTE | 2023-05-03 21:20 | DI.NM.S_ITS ---
DATE OF SERVICE: 05/03/2023 PROCEDURE: Exercise treadmill stress and rest myocardial perfusion imaging with gating to assess ejection fraction and regional wall motion. INDICATIONS: The patient is a 67-year-old female with atypical chest discomfort. CARDIAC STRESS: The patient was able to exercise for 8 minutes, 1 second on a standard Alex protocol suggesting excellent exercise capacity with an GURJIT of -30%. She had a normal heart rate response to exercise, achieving a maximum heart rate of 153 BPM (100% of her predicted maximum). She had a mild hypertensive blood pressure response with a resting blood pressure of 160/80, increasing to a maximum of 210/90. She had no chest discomfort or other anginal symptoms. Her resting ECG shows a RBBB and mild nonspecific inferior ST-segment abnormalities but there are no significant ST-segment shifts with exercise. There were no concerning arrhythmias. At 6 minutes, 40 seconds of exercise at a heart rate of 150 BPM, 26.4 mCi of technetium-99m Myoview was injected and she was imaged 10 minutes later using gated SPECT acquisition protocol. Earlier in the day while at rest, she had been injected with 11.4 mCi of technetium-99m Myoview and was imaged 15 minutes later, again using gated SPECT acquisition protocol. FINDINGS: 1. Raw data. There appears to be good myocardial tracer uptake without any significant artifact. The lung/heart ratio is normal at 0.29 with a normal TID ratio of 0.66. 2. Quantitated gated SPECT: Post-stress ejection fraction is estimated at 92%, likely an overestimate due to relatively small left ventricular volumes. There are no focal wall motion abnormalities. Resting ejection fraction is also 92% with a resting end-diastolic volume of 75 mL. 3. Myocardial perfusion imaging: Post-stress supine images shows a fairly normal myocardial perfusion pattern, although with a very subtle defect in the distal anterior wall, sparing the apex in a pattern that would be consistent with attenuation artifact, although the defect persists to a slight degree on the prone images. The resting images show an identical perfusion pattern without any significant improvement in the defect. IMPRESSION: 1. Probable normal myocardial perfusion study. 2. Small, subtle, fixed distal anterior defect that most likely reflects attenuation artifact although it persists to a slight degree on the prone images. While a previous nontransmural infarction cannot be entirely excluded, this is unlikely given the brisk contractility in this area. There is no evidence for any myocardial ischemia. 3. High normal left ventricular systolic function without any focal wall motion abnormality and relatively small left ventricular volumes. 4. Excellent exercise capacity without angina or ECG evidence of ischemia. She had a mild hypertensive blood pressure response to exercise. Emily Archuleta - DAWNA/melva/ doc#: [id number]/job#: [id number] dd: 05/03/2023 16:04:00 dt: 05/03/2023 20:36:00 DICTATING MD/COPIES TO: Fermin Lopez MD; Juancarlos Lo MD COPIES MNE: BR[place];
== END ==
LOC: NUCM 08:59
PROVIDERS: Family Provider Internal Medicine; PCP Internal Medicine; Referring Provider Internal Medicine; Visit Provider Internal Medicine
DX: R07.89 Other chest pain (principal)
CPT/HCPCS: 78452; 93017; A9502

== ENCOUNTER 2023-07-27 09:45 | Outpatient (RCR) | payer OTHER, SELFPAY ==
--- NOTE | 2023-05-08 16:41 | PT.OIE ---
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 Diverticular disease of colon (~2005) Essential hypertension Fibromyalgia Generalized anxiety disorder Hx of papillary thyroid carcinoma Menopausal syndrome Mixed hyperlipidemia Recurrent UTI Urinary incontinence Past Surgical History (Last Reviewed 04/27/23 @ 10:34 by Anum Faey PA-C) Status post foot surgery Status post nasal septoplasty (04/04/17) Status post thyroidectomy (~03/1994) Status post total right knee replacement (09/10/17) Visit Care Team Role Provider Type Juancarlos Lo MD Family Provider Physician Primary Care Provider Specialty: Internal Medicine Address: [address] [place] [address], [id number] Email: [email or web address] Tari Mora MD Attending Provider Non-Staff Referring Provider Specialty: Urology Address: [address] [place] [address], [id number] Email: Physical Therapy Initial Evaluation PT-OP-A Visit Information Start: 04/27/23 18:02 Freq: Status: Active Protocol: Document 05/08/23 07:32 LRN (Rec: 05/08/23 08:20 LRN [id number]) Out-Patient Physical Therapy Visit Information Visit Information Visit Type Initial Evaluation Visit Start Time 07:32 Visit Stop Time 08:17 Total Visit Minutes 45 Visit Number 1 Evaluation Information Evaluation Date 05/08/23 Precautions Precautions Fibromyalgia, Thyroidectomy due to Cancer. PT-OP-B Current Condition Start: 04/27/23 18:02 Freq: Status: Active Protocol: Document 05/08/23 07:32 LRN (Rec: 05/08/23 08:20 LRN [id number]) Current Condition History of Current Condition Onset Date summer Current Complaints Urinary frequency, frequent UTI's since 1988. History of Current Condition Last year started to have dribbling and increased UTI's initiating pt to see Dr. Tari Mora (urologist - ) andwas found to be retaining 30 cc of urine. She was started on estrogen cream and sent to PT. Last month She has had 3-4 UTI's in the past year and just finished having one. She has urinary leakage with an urge. 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 G2, P2, both were vaginal births (1990, 1993), . Treatment Goals Patient/Caregiver Goals Pt goals No urinary leakage and no dribbling. straighten things to emptly bladder completely have fewer UTI's. increase PF strength. Personal Factors Other Personal Factors That May Effect Fibromyalgia, back pain, R Therapy/Recovery knee replacement PT-OP-I Pelvic Floor Start: 04/27/23 18:02 Freq: Status: Active Protocol: Document 05/08/23 07:32 LRN (Rec: 05/08/23 08:20 LRN [id number]) Pelvic Floor Assessment Urine Urinary Symptoms Dribbling After Urination, Incomplete Emptying Leakage Size Small Leakage Cause Urge Leaks Per Day 1 every 2-3 days. Voiding Frequency 11-14 Nocturia 1 Pads Used In 24 Hours 1 Urine Pad Type Panty Liner Bowel Bowel Surgery No Other Bowel Symptoms None. Bowel Movement Frequency 1/day [place] Stool Chart Comments Type 2-3 Pelvic Clock Pelvic Clock 12-3 Atrophy Pelvic Clock 3-6 Atrophy Pelvic Clock 6-9 Atrophy Pelvic Clock 9-12 Atrophy Prolapse Rectocele Grade 1 Perineal Descent Resting Absent Bearing Present Contraction Ability Manual Muscle Testing Left 1 Manual Muscle Testing Right 0 Manual Muscle Testing Anterior 0 Manual Muscle Testing Posterior 1 Muscle Endurance (Seconds) 1 Number of Quick Contractions In 10 3 Seconds PT-OP-J Posture/Palpation/Skin Start: 04/27/23 18:02 Freq: Status: Active Protocol: Document 05/08/23 07:32 LRN (Rec: 05/08/23 08:20 LRN [id number]) Posture Evaluation Position Standing Head/C-Spine Posture Neutral Position Hip Posture (L) Externally Rotated,(R) Externally Rotated Comments Posture Comments Scoliosis of spine with upper apex R, lower apex L. Sway back. PT-OP-K Range of Motion Start: 04/27/23 18:02 Freq: Status: Active Protocol: Document 05/08/23 07:32 LRN (Rec: 05/08/23 08:20 LRN [id number]) Lumbar Spine Range of Motion Lumbar Spine Active Degrees Testing Position Standing Flexion 95 Extension 30 Rotation Left 20 Rotation Right 10 Lateral Flexion Left 15 Lateral Flexion Right 10 Comments Trunk AROM: Flexion is 95 deg ?s with 74 deg?s hip flexion, Trunk extension is 30 deg?s with 20 deg?s hip extension. Hip Goniometric Range of Motion Hip Right Passive Testing Position Supine Internal Rotation 50 External Rotation 55 Left Passive Testing Position Supine Internal Rotation 60 External Rotation 60 PT-OP-M Strength Start: 04/27/23 18:02 Freq: Status: Active Protocol: Document 05/08/23 07:32 LRN (Rec: 05/08/23 08:20 LRN [id number]) Trunk Strength Trunk Manual Muscle Testing Core Stabilization Lacks core stabilization with MMT of LE's Hip Strength Hip Manual Muscle Testing Right Extension (S1) 4+ Good+ External Rotation 3 Fair Comments Strength is 5/5 except as indicated above Left External Rotation 4 Good Comments Strength is 5/5 except as indicated above PT-OP-Q Treatments Start: 04/27/23 18:02 Freq: Status: Active Protocol: Document 05/08/23 07:32 LRN (Rec: 05/08/23 08:20 LRN [id number]) Therapeutic Exercises Sitting Exercises Kegel Sitting Exercise Name Kegel for initial contraction, not full contraction. Reps/Minutes 2' Comments Cued not to contract substitute muscles. Self-Care/Home Management Treatment Education Other Education Discussed results of evaluation, goals, and plan of care (POC). Pt agreeable to goals and POC. Discussed and educated pt in specifics for completion of in use of Bladder Diary and I/S in tracking for 1 week. Discussed use of 2 different diaries for tracking of bladder for next 7 days. Activities Self-Care/Home Management Activities Issued & reviewed HEP: I/S pt in Kegel ex's but I/S pt to perform initial PF contraction of tightening perineum and not to fully contract PF due to poor coordination of contraction. PT-OP-T Assessment and Plan Start: 04/27/23 18:02 Freq: Status: Active Protocol: Document 05/08/23 07:32 LRN (Rec: 05/08/23 08:20 LRN [id number]) Physical Therapy Assessment Rehab Potential Rehabilitation Potential Good Evaluation Complexity Number of Personal Factors/Comorbidities 3 or More Impairments Impairments Posture,ROM,Soft Tissue Mobility,Strength,Transfers Other Impairments Urge urinary incontinence. Frequent UTI's. Goals Four Impairment Urge urinary incontinence Short Term Goal (STG) Pt will be educated in urge deference technique. STG Duration wks-05/18/23 Retirement Goal (LTG) Pt will be able to maintain urinary continence in the presence of a strong urge. LTG Duration wks-07/06/23 Three Impairment Incomplete emptying of bladder with frequent UTI's. Short Term Goal (STG) Improve posture and abdominal soft tissue mobility to improve ability to emptly bladder completely. STG Duration wks-06/19/23 Retirement Goal (LTG) Pt educated in fluid and core pressure management No urinary leakage and no dribbling. LTG Duration wks-07/06/23 Two Impairment Poor coordination of PF contraction with use of substitue ms during Kegel Impairment Poor coordination of PF contractions with bulging of PF while performing a Kegel Short Term Goal (STG) Improve awareness of proper coordination of PF ms to prevent bulging of PF on contraction. STG Duration wk-06/19/23 Retirement Goal (LTG) Pt will be educated in core pressure management and decrease urinary dribbling after urination. LTG Duration wks-07/06/23 One Impairment Pt lacks an independent self care HEP. Short Term Goal (STG) Pt educated in proper transfers to lessen core abdominal pressure. STG Duration wks-05/18/23 Farm Consultant Goal (LTG) Pt will be independent in a self care HEP for PF strengthening. LTG Duration 12 wks-07/06/23 Assessment Summary Assessment Pt is a 67 yo female who presents with urge urinary incontinecne and poor coordination of her PF while performing a Kegel. The pt is pushing out during contractions with use of substitute muscles rather than drawing up and in with her PF . She appears to have a drop of her uterus and tightness of the PF. R hip mobility is mildly limited in ER/IR compared to L hip, but both has excessive mobility of hip IR. She has weakness of her core & hip ext and ER (R>L). Physical Therapy Plan Frequency and Duration Frequency of Treatment 1x/Week Duration of treatment (weeks) 12 Plan of Care Start Date 05/08/23 Plan of Care End Date 07/06/23 Therapeutic Interventions Therapeutic Interventions Home Exercise Program,Manual Therapy,Neuromuscular Re- education,Self-Care/Home Management,Soft Tissue Mobilization,Therapeutic Activities,Therapeutic Exercises Modalities Cold Pack/Ice Massage,Hot Packs Next Visit Focus/Plan Next Note Type Treatment Note Next Visit Plan Next: Ex: Kegel without use of substitute muscles (prevent outward bulging with Kegel), education of reduction of intra-abdominal pressure, proper deep breathing, and proper breathing with transfers and body mechanics and proper posture sitting/ standing, core/PF stabilization for proper abdominal pressure system, Possible use of EStim if able to insert electrode deep enough for Kegel awareness training. Ther Ex: PF/core/hip (ER, R hip ext) strengthening, improve hip R IR and slightly R ER. Educate/discuss stool types, foods, water intake STM of abdomen (and urachus) & bladder mobility. POC: Pt education, Manual therapy. ? Biofeedback with vaginal sensor. Therapeutic Exercises, Therapeutic Activities, Neuromuscular Reeducation.
--- NOTE | 2023-05-08 16:46 | PT.OIE ---
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 Diverticular disease of colon (~2005) Essential hypertension Fibromyalgia Generalized anxiety disorder Hx of papillary thyroid carcinoma Menopausal syndrome Mixed hyperlipidemia Recurrent UTI Urinary incontinence Past Surgical History (Last Reviewed 04/27/23 @ 10:34 by Anum Faye PA-C) Status post foot surgery Status post nasal septoplasty (04/04/17) Status post thyroidectomy (~03/1994) Status post total right knee replacement (09/10/17) Visit Care Team Role Provider Type Juancarlos Lo MD Family Provider Physician Primary Care Provider Specialty: Internal Medicine Address: [address] [place] [address], [address] Email: [email or web address] Tari Mora MD Attending Provider Non-Staff Referring Provider Specialty: Urology Address: [address] [place] [address], [phone] Email: Physical Therapy Initial Evaluation PT-OP-A Visit Information Start: 04/27/23 18:02 Freq: Status: Active Protocol: Document 05/08/23 07:32 LRN (Rec: 05/08/23 08:20 LRN [id number]) Out-Patient Physical Therapy Visit Information Visit Information Visit Type Initial Evaluation Visit Start Time 07:32 Visit Stop Time 08:17 Total Visit Minutes 45 Visit Number 1 Evaluation Information Evaluation Date 05/08/23 Precautions Precautions Fibromyalgia, Thyroidectomy due to Cancer. PT-OP-B Current Condition Start: 04/27/23 18:02 Freq: Status: Active Protocol: Document 05/08/23 07:32 LRN (Rec: 05/08/23 08:20 LRN [id number]) Current Condition History of Current Condition Onset Date summer Current Complaints Urinary frequency, frequent UTI's since 1988. History of Current Condition Last year started to have dribbling and increased UTI's initiating pt to see Dr. Tari Mora (urologist - ) andwas found to be retaining 30 cc of urine. She was started on estrogen cream and sent to PT. Last month She has had 3-4 UTI's in the past year and just finished having one. She has urinary leakage with an urge. 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 G2, P2, both were vaginal births (1990, 1993), . Treatment Goals Patient/Caregiver Goals Pt goals No urinary leakage and no dribbling. straighten things to emptly bladder completely have fewer UTI's. increase PF strength. Personal Factors Other Personal Factors That May Effect Fibromyalgia, back pain, R Therapy/Recovery knee replacement PT-OP-C Subjective Start: 04/27/23 18:02 Freq: Status: Active Protocol: Document 05/08/23 07:32 LRN (Rec: 05/08/23 16:46 LRN [id number]) Patient Questionnaires Pelvic Pain and Urgency/Frequency Patient Symptom Scale Pelvic Pain Score 7 OP-PT Pain Assessment Pain Assessment Grid Paper Pain Assessment Grid Completed Yes Location Mahesh upper shoulders Pain Location Details mahesh upper shoulders Intensity 3 Scale Used Numeric (0 - 10) Mahesh lateral LB Pain Location Details Mahesh lateral LB Intensity 3 Scale Used Numeric (0 - 10) PT-OP-I Pelvic Floor Start: 04/27/23 18:02 Freq: Status: Active Protocol: Document 05/08/23 07:32 LRN (Rec: 05/08/23 08:20 LRN [id number]) Pelvic Floor Assessment Urine Urinary Symptoms Dribbling After Urination, Incomplete Emptying Leakage Size Small Leakage Cause Urge Leaks Per Day 1 every 2-3 days. Voiding Frequency 11-14 Nocturia 1 Pads Used In 24 Hours 1 Urine Pad Type Panty Liner Bowel Bowel Surgery No Other Bowel Symptoms None. Bowel Movement Frequency 1/day [place] Stool Chart Comments Type 2-3 Pelvic Clock Pelvic Clock 12-3 Atrophy Pelvic Clock 3-6 Atrophy Pelvic Clock 6-9 Atrophy Pelvic Clock 9-12 Atrophy Prolapse Rectocele Grade 1 Perineal Descent Resting Absent Bearing Present Contraction Ability Manual Muscle Testing Left 1 Manual Muscle Testing Right 0 Manual Muscle Testing Anterior 0 Manual Muscle Testing Posterior 1 Muscle Endurance (Seconds) 1 Number of Quick Contractions In 10 3 Seconds PT-OP-J Posture/Palpation/Skin Start: 04/27/23 18:02 Freq: Status: Active Protocol: Document 05/08/23 07:32 LRN (Rec: 05/08/23 08:20 LRN [id number]) Posture Evaluation Position Standing Head/C-Spine Posture Neutral Position Hip Posture (L) Externally Rotated,(R) Externally Rotated Comments Posture Comments Scoliosis of spine with upper apex R, lower apex L. Sway back. PT-OP-K Range of Motion Start: 04/27/23 18:02 Freq: Status: Active Protocol: Document 05/08/23 07:32 LRN (Rec: 05/08/23 08:20 LRN [id number]) Lumbar Spine Range of Motion Lumbar Spine Active Degrees Testing Position Standing Flexion 95 Extension 30 Rotation Left 20 Rotation Right 10 Lateral Flexion Left 15 Lateral Flexion Right 10 Comments Trunk AROM: Flexion is 95 deg ?s with 74 deg?s hip flexion, Trunk extension is 30 deg?s with 20 deg?s hip extension. Hip Goniometric Range of Motion Hip Right Passive Testing Position Supine Internal Rotation 50 External Rotation 55 Left Passive Testing Position Supine Internal Rotation 60 External Rotation 60 PT-OP-M Strength Start: 04/27/23 18:02 Freq: Status: Active Protocol: Document 05/08/23 07:32 LRN (Rec: 05/08/23 08:20 LRN [id number]) Trunk Strength Trunk Manual Muscle Testing Core Stabilization Lacks core stabilization with MMT of LE's Hip Strength Hip Manual Muscle Testing Right Extension (S1) 4+ Good+ External Rotation 3 Fair Comments Strength is 5/5 except as indicated above Left External Rotation 4 Good Comments Strength is 5/5 except as indicated above PT-OP-Q Treatments Start: 04/27/23 18:02 Freq: Status: Active Protocol: Document 05/08/23 07:32 LRN (Rec: 05/08/23 08:20 LRN [id number]) Therapeutic Exercises Sitting Exercises Kegel Sitting Exercise Name Kegel for initial contraction, not full contraction. Reps/Minutes 2' Comments Cued not to contract substitute muscles. Self-Care/Home Management Treatment Education Other Education Discussed results of evaluation, goals, and plan of care (POC). Pt agreeable to goals and POC. Discussed and educated pt in specifics for completion of in use of Bladder Diary and I/S in tracking for 1 week. Discussed use of 2 different diaries for tracking of bladder for next 7 days. Activities Self-Care/Home Management Activities Issued & reviewed HEP: I/S pt in Kegel ex's but I/S pt to perform initial PF contraction of tightening perineum and not to fully contract PF due to poor coordination of contraction. PT-OP-T Assessment and Plan Start: 04/27/23 18:02 Freq: Status: Active Protocol: Document 05/08/23 07:32 LRN (Rec: 05/08/23 08:20 LRN [id number]) Physical Therapy Assessment Rehab Potential Rehabilitation Potential Good Evaluation Complexity Number of Personal Factors/Comorbidities 3 or More Impairments Impairments Posture,ROM,Soft Tissue Mobility,Strength,Transfers Other Impairments Urge urinary incontinence. Frequent UTI's. Goals Four Impairment Urge urinary incontinence Short Term Goal (STG) Pt will be educated in urge deference technique. STG Duration wks-05/18/23 Manager Roofing Goal (LTG) Pt will be able to maintain urinary continence in the presence of a strong urge. LTG Duration wks-07/06/23 Three Impairment Incomplete emptying of bladder with frequent UTI's. Short Term Goal (STG) Improve posture and abdominal soft tissue mobility to improve ability to emptly bladder completely. STG Duration wk-06/19/23 Manager Roofing Goal (LTG) Pt educated in fluid and core pressure management No urinary leakage and no dribbling. LTG Duration wks-07/06/23 Two Impairment Poor coordination of PF contraction with use of substitue ms during Kegel Impairment Poor coordination of PF contractions with bulging of PF while performing a Kegel Short Term Goal (STG) Improve awareness of proper coordination of PF ms to prevent bulging of PF on contraction. STG Duration wks-06/19/23 Manager Roofing Goal (LTG) Pt will be educated in core pressure management and decrease urinary dribbling after urination. LTG Duration wks-07/06/23 One Impairment Pt lacks an independent self care HEP. Short Term Goal (STG) Pt educated in proper transfers to lessen core abdominal pressure. STG Duration wks-05/18/23 Manager Roofing Goal (LTG) Pt will be independent in a self care HEP for PF strengthening. LTG Duration 12 wks-07/06/23 Assessment Summary Assessment Pt is a 67 yo female who presents with urge urinary incontinecne and poor coordination of her PF while performing a Kegel. The pt is pushing out during contractions with use of substitute muscles rather than drawing up and in with her PF . She appears to have a drop of her uterus and tightness of the PF. R hip mobility is mildly limited in ER/IR compared to L hip, but both has excessive mobility of hip IR. She has weakness of her core & hip ext and ER (R>L). Physical Therapy Plan Frequency and Duration Frequency of Treatment 1x/Week Duration of treatment (weeks) 12 Plan of Care Start Date 05/08/23 Plan of Care End Date 07/06/23 Therapeutic Interventions Therapeutic Interventions Home Exercise Program,Manual Therapy,Neuromuscular Re- education,Self-Care/Home Management,Soft Tissue Mobilization,Therapeutic Activities,Therapeutic Exercises Modalities Cold Pack/Ice Massage,Hot Packs Next Visit Focus/Plan Next Note Type Treatment Note Next Visit Plan Next: Ex: Kegel without use of substitute muscles (prevent outward bulging with Kegel), education of reduction of intra-abdominal pressure, proper deep breathing, and proper breathing with transfers and body mechanics and proper posture sitting/ standing, core/PF stabilization for proper abdominal pressure system, Possible use of EStim if able to insert electrode deep enough for Kegel awareness training. Ther Ex: PF/core/hip (ER, R hip ext) strengthening, improve hip R IR and slightly R ER. Educate/discuss stool types, foods, water intake STM of abdomen (and urachus) & bladder mobility. POC: Pt education, Manual therapy. ? Biofeedback with vaginal sensor. Therapeutic Exercises, Therapeutic Activities, Neuromuscular Reeducation.
--- NOTE | 2023-05-08 16:46 | PT.OPPOC ---
Physical, Occupational & Speech Therapy At [facility] Current Diagnoses Muscle weakness (generalized) (05/08/23) Urge incontinence (05/08/23) Post-void dribbling (05/08/23) Frequency of micturition (05/08/23) Visit Care Team Role Provider Type Juancarlos Lo MD Family Provider Physician Primary Care Provider Specialty: Internal Medicine Address: [address] [place] [address], [id number] Email: [email or web address] Tari Mora MD Attending Provider Non-Staff Referring Provider Specialty: Urology Address: [address] [place] [address], [address] Email: Plan Of Care PT-OP-T Assessment and Plan Start: 04/27/23 18:02 Freq: Status: Active Protocol: Document 05/08/23 07:32 LRN (Rec: 05/08/23 08:20 LRN [id number]) Physical Therapy Assessment Rehab Potential Rehabilitation Potential Good Evaluation Complexity Number of Personal Factors/Comorbidities 3 or More Impairments Impairments Posture,ROM,Soft Tissue Mobility,Strength,Transfers Other Impairments Urge urinary incontinence. Frequent UTI's. Goals Four Impairment Urge urinary incontinence Short Term Goal (STG) Pt will be educated in urge deference technique. STG Duration wks-05/18/23 Tire And Lube Technician Goal (LTG) Pt will be able to maintain urinary continence in the presence of a strong urge. LTG Duration 12 wks-07/06/23 Three Impairment Incomplete emptying of bladder with frequent UTI's. Short Term Goal (STG) Improve posture and abdominal soft tissue mobility to improve ability to emptly bladder completely. STG Duration wks-06/19/23 Tire And Lube Technician Goal (LTG) Pt educated in fluid and core pressure management No urinary leakage and no dribbling. LTG Duration 12 wks-07/06/23 Two Impairment Poor coordination of PF contraction with use of substitue ms during Kegel Impairment Poor coordination of PF contractions with bulging of PF while performing a Kegel Short Term Goal (STG) Improve awareness of proper coordination of PF ms to prevent bulging of PF on contraction. STG Duration 06 wks-06/19/23 Nursing Home Goal (LTG) Pt will be educated in core pressure management and decrease urinary dribbling after urination. LTG Duration 12 wks-07/06/23 One Impairment Pt lacks an independent self care HEP. Short Term Goal (STG) Pt educated in proper transfers to lessen core abdominal pressure. STG Duration 02 wks-05/18/23 Nursing Home Goal (LTG) Pt will be independent in a self care HEP for PF strengthening. LTG Duration 12 wks-07/06/23 Assessment Summary Assessment Pt is a 67 yo female who presents with urge urinary incontinecne and poor coordination of her PF while performing a Kegel. The pt is pushing out during contractions with use of substitute muscles rather than drawing up and in with her PF . She appears to have a drop of her uterus and tightness of the PF. R hip mobility is mildly limited in ER/IR compared to L hip, but both has excessive mobility of hip IR. She has weakness of her core & hip ext and ER (R>L). Physical Therapy Plan Frequency and Duration Frequency of Treatment 1x/Week Duration of treatment (weeks) 12 Plan of Care Start Date 05/08/23 Plan of Care End Date 07/06/23 Therapeutic Interventions Therapeutic Interventions Home Exercise Program,Manual Therapy,Neuromuscular Re- education,Self-Care/Home Management,Soft Tissue Mobilization,Therapeutic Activities,Therapeutic Exercises Modalities Cold Pack/Ice Massage,Hot Packs Next Visit Focus/Plan Next Note Type Treatment Note Next Visit Plan Next: Ex: Kegel without use of substitute muscles (prevent outward bulging with Kegel), education of reduction of intra-abdominal pressure, proper deep breathing, and proper breathing with transfers and body mechanics and proper posture sitting/ standing, core/PF stabilization for proper abdominal pressure system, Possible use of EStim if able to insert electrode deep enough for Kegel awareness training. Ther Ex: PF/core/hip (ER, R hip ext) strengthening, improve hip R IR and slightly R ER. Educate/discuss stool types, foods, water intake STM of abdomen (and urachus) & bladder mobility. POC: Pt education, Manual therapy. ? Biofeedback with vaginal sensor. Therapeutic Exercises, Therapeutic Activities, Neuromuscular Reeducation. Plan of Care Dates Plan of Care Start Date 05/08/23 Plan of Care End Date 07/06/23 Electronically Signed by: Claudia Collier, PT 05/08/23 [id number] If you are in agreement with this Plan of Care, please return a signed and dated copy. I have reviewed this Plan of Care and certify that the skilled therapy services above are required to meet the patient?s needs. Physician Signature Date Printed Name and Credentials Clinical Instructor Signature Printed Name and Credentials
--- NOTE | 2023-05-17 10:27 | PT.OTN ---
Current Diagnoses Muscle weakness (generalized) (05/17/23) Urge incontinence (05/17/23) Post-void dribbling (05/17/23) Frequency of micturition (05/17/23) Physical Therapy Treatment Note PT-OP-A Visit Information Start: 04/27/23 18:02 Freq: Status: Active Protocol: Document 05/17/23 07:32 LRN (Rec: 05/17/23 08:19 LRN [id number]) Out-Patient Physical Therapy Visit Information Visit Information Visit Type Treatment Note Visit Start Time 07:31 Visit Stop Time 08:15 Visit Number 2 Evaluation Information Evaluation Date 05/08/23 Precautions Precautions Fibromyalgia, Thyroidectomy due to Cancer, 2 births vaginally. PT-OP-B Current Condition Start: 04/27/23 18:02 Freq: Status: Active Protocol: Document 05/08/23 07:32 LRN (Rec: 05/08/23 08:20 LRN [id number]) Current Condition History of Current Condition Onset Date summer Current Complaints Urinary frequency, frequent UTI's since 1988. History of Current Condition Last year started to have dribbling and increased UTI's initiating pt to see Dr. Tari Mora (urologist - ) andwas found to be retaining 30 cc of urine. She was started on estrogen cream and sent to PT. Last month She has had 3-4 UTI's in the past year and just finished having one. She has urinary leakage with an urge. 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 G2, P2, both were vaginal births (1990, 1993), . Treatment Goals Patient/Caregiver Goals Pt goals No urinary leakage and no dribbling. straighten things to emptly bladder completely have fewer UTI's. increase PF strength. Personal Factors Other Personal Factors That May Effect Fibromyalgia, back pain, R Therapy/Recovery knee replacement PT-OP-C Subjective Start: 04/27/23 18:02 Freq: Status: Active Protocol: Document 05/17/23 07:32 LRN (Rec: 05/17/23 08:19 LRN [id number]) OP-PT Subjective Patient Comments Patient Comments No leakage. With urination, the urine is light yellow or clear. Doesn't drink surgar or caffienated drinkes, once inawhile does decaf. Takes anti-biotic before intercourse and takes D-sienna and probiotics. PT-OP-I Pelvic Floor Start: 04/27/23 18:02 Freq: Status: Active Protocol: Document 05/08/23 07:32 LRN (Rec: 05/08/23 08:20 LRN [id number]) Pelvic Floor Assessment Urine Urinary Symptoms Dribbling After Urination, Incomplete Emptying Leakage Size Small Leakage Cause Urge Leaks Per Day 1 every 2-3 days. Voiding Frequency 11-14 Nocturia 1 Pads Used In 24 Hours 1 Urine Pad Type Panty Liner Bowel Bowel Surgery No Other Bowel Symptoms None. Bowel Movement Frequency 1/day [place] Stool Chart Comments Type 2-3 Pelvic Clock Pelvic Clock 12-3 Atrophy Pelvic Clock 3-6 Atrophy Pelvic Clock 6-9 Atrophy Pelvic Clock 9-12 Atrophy Prolapse Rectocele Grade 1 Perineal Descent Resting Absent Bearing Present Contraction Ability Manual Muscle Testing Left 1 Manual Muscle Testing Right 0 Manual Muscle Testing Anterior 0 Manual Muscle Testing Posterior 1 Muscle Endurance (Seconds) 1 Number of Quick Contractions In 10 3 Seconds PT-OP-J Posture/Palpation/Skin Start: 04/27/23 18:02 Freq: Status: Active Protocol: Document 05/08/23 07:32 LRN (Rec: 05/08/23 08:20 LRN [id number]) Posture Evaluation Position Standing Head/C-Spine Posture Neutral Position Hip Posture (L) Externally Rotated,(R) Externally Rotated Comments Posture Comments Scoliosis of spine with upper apex R, lower apex L. Sway back. PT-OP-K Range of Motion Start: 04/27/23 18:02 Freq: Status: Active Protocol: Document 05/08/23 07:32 LRN (Rec: 05/08/23 08:20 LRN [id number]) Lumbar Spine Range of Motion Lumbar Spine Active Degrees Testing Position Standing Flexion 95 Extension 30 Rotation Left 20 Rotation Right 10 Lateral Flexion Left 15 Lateral Flexion Right 10 Comments Trunk AROM: Flexion is 95 deg ?s with 74 deg?s hip flexion, Trunk extension is 30 deg?s with 20 deg?s hip extension. Hip Goniometric Range of Motion Hip Right Passive Testing Position Supine Internal Rotation 50 External Rotation 55 Left Passive Testing Position Supine Internal Rotation 60 External Rotation 60 PT-OP-M Strength Start: 04/27/23 18:02 Freq: Status: Active Protocol: Document 05/08/23 07:32 LRN (Rec: 05/08/23 08:20 LRN [id number]) Trunk Strength Trunk Manual Muscle Testing Core Stabilization Lacks core stabilization with MMT of LE's Hip Strength Hip Manual Muscle Testing Right Extension (S1) 4+ Good+ External Rotation 3 Fair Comments Strength is 5/5 except as indicated above Left External Rotation 4 Good Comments Strength is 5/5 except as indicated above PT-OP-Q Treatments Start: 04/27/23 18:02 Freq: Status: Active Protocol: Document 05/17/23 07:32 LRN (Rec: 05/17/23 08:19 LRN [id number]) Therapeutic Exercises Supine Exercises Kegel Supine Exercise Name Kegel quick and long hold contractions. Reps/Minutes 4' Comments Cuing to isolate from abdominal ms. Deep Breathing Supine Exercise Name Deep Breathing training Reps/Minutes 3' Comments Cuing for hand placement self awareness Sitting Exercises Urge Deference Training Sitting Exercise Name Urge deference training - deep breathing and kegel Reps/Minutes 5' Comments Practice of quick flicks gil relaxation between contractions. Deep Breathing\ Sitting Exercise Name Deep Breathing Reps/Minutes 2' Comments Cuing for hand placement self awareness Kegel Sitting Exercise Name Kegel w/Urge deference technique Reps/Minutes 2' Comments Cuing for hand placement self awareness Self-Care/Home Management Treatment Education Other Education Reviewed Bladder dairy and discussed fluid intake (AM/PM) , bowel movement frequency, & nighttime voiding frequency. Pt educated in PF muscles and internal organ positioning, explaining cystocele and rectocele and discussed how this can worsen with breath holding. Discussed briefly diet and fluids best for urinary system. Pt education in urge deferenc technique and deep breathing. Activities Self-Care/Home Management Activities HEP: Deep breathing, Kegels, Urge deference technique. I/S pt in isolated Kegel but to stop if painful/tight Requested pt count in secs her urination times. PT-OP-T Assessment and Plan Start: 04/27/23 18:02 Freq: Status: Active Protocol: Document 05/17/23 07:32 LRN (Rec: 05/17/23 08:19 LRN [id number]) Physical Therapy Assessment Goals Four Impairment Urge urinary incontinence Short Term Goal (STG) Pt will be educated in urge deference technique. STG Duration 02 wks-05/18/23 (05/17/23: MET GOAL) Theater Teacher Goal (LTG) Pt will be able to maintain urinary continence in the presence of a strong urge. LTG Duration 12 wks-07/06/23 Three Impairment Incomplete emptying of bladder with frequent UTI's. Impairment wgt 127# Short Term Goal (STG) Improve posture and abdominal soft tissue mobility to improve ability to emptly bladder completely. STG Duration 06 wks-06/19/23 Theater Teacher Goal (LTG) Pt educated in fluid and core pressure management No urinary leakage and no dribbling. LTG Duration 12 wks-07/06/23 Two Impairment Poor coordination of PF contraction with use of substitue ms during Kegel Impairment Poor coordination of PF contractions with bulging of PF while performing a Kegel. Short Term Goal (STG) Improve awareness of proper coordination of PF ms to prevent bulging of PF on contraction. 05/17/23: Initiated training with Kegels STG Duration 06 wks-06/19/23 progressed 05/17/23 Theater Teacher Goal (LTG) Pt will be educated in core pressure management and decrease urinary dribbling after urination. LTG Duration 12 wks-07/06/23 One Impairment Pt lacks an independent self care HEP. Short Term Goal (STG) Pt educated in proper transfers to lessen core abdominal pressure. STG Duration wks-05/18/23 Theater Teacher Goal (LTG) Pt will be independent in a self care HEP for PF strengthening. 05/16/24: Kegels Quick & Long Holds LTG Duration 12 wks-07/06/23 progressed Assessment Summary Assessment 67 yo female who initially presented with urge urinary incontinence and poor coordination of her PF while performing a Kegel. Per bladder diary review her frequency of urination is every 2 hrs after initial frequent 1-3 urinations after waking. Pt showed no leakage. Pt will need coordination of PF contractions to prevent bulging and possible stretching to improve Kegel strength of contraction. Physical Therapy Plan Frequency and Duration Frequency of Treatment 1x/Week Duration of treatment (weeks) 12 Plan of Care Start Date 05/08/23 Plan of Care End Date 07/06/23 Next Visit Focus/Plan Next Note Type Treatment Note Next Visit Plan Next: Ex: Kegel without use of substitute muscles (prevent outward bulging with Kegel), education of reduction of intra-abdominal pressure, proper deep breathing, and proper breathing with transfers and body mechanics and proper posture sitting/ standing, core/PF stabilization for proper abdominal pressure system, Possible use of EStim if able to insert electrode deep enough for Kegel awareness training. Ther Ex: PF/core/hip (ER, R hip ext) strengthening, improve hip R IR and slightly R ER. Educate/discuss stool types, foods, water intake STM of abdomen (and urachus) & bladder mobility. POC: Pt education, Manual therapy. ? Biofeedback with vaginal sensor. Therapeutic Exercises, Therapeutic Activities, Neuromuscular Reeducation.
--- NOTE | 2023-06-04 16:18 | PT.OTN ---
Current Diagnoses Muscle weakness (generalized) (06/04/23) Urge incontinence (06/04/23) Post-void dribbling (06/04/23) Frequency of micturition (06/04/23) Physical Therapy Treatment Note PT-OP-A Visit Information Start: 04/27/23 18:02 Freq: Status: Active Protocol: Document 06/04/23 13:03 LRN (Rec: 06/04/23 13:47 LRN [id number]) Out-Patient Physical Therapy Visit Information Visit Information Visit Type Treatment Note Visit Start Time 13:03 Visit Stop Time 13:43 Visit Number 3 Evaluation Information Evaluation Date 05/08/23 Precautions Precautions Fibromyalgia, Thyroidectomy due to Cancer, 2 births vaginally. PT-OP-B Current Condition Start: 04/27/23 18:02 Freq: Status: Active Protocol: Document 05/08/23 07:32 LRN (Rec: 05/08/23 08:20 LRN [id number]) Current Condition History of Current Condition Onset Date summer Current Complaints Urinary frequency, frequent UTI's since 1988. History of Current Condition Last year started to have dribbling and increased UTI's initiating pt to see Dr. Tari Mora (urologist - ) andwas found to be retaining 30 cc of urine. She was started on estrogen cream and sent to PT. Last month She has had 3-4 UTI's in the past year and just finished having one. She has urinary leakage with an urge. 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 G2, P2, both were vaginal births (1990, 1993), . Treatment Goals Patient/Caregiver Goals Pt goals No urinary leakage and no dribbling. straighten things to emptly bladder completely have fewer UTI's. increase PF strength. Personal Factors Other Personal Factors That May Effect Fibromyalgia, back pain, R Therapy/Recovery knee replacement PT-OP-C Subjective Start: 04/27/23 18:02 Freq: Status: Active Protocol: Document 06/04/23 13:03 LRN (Rec: 06/04/23 13:47 LRN [id number]) OP-PT Subjective Patient Comments Patient Comments Did bladder diary before going on trip to [place], got back 2 days ago. PT-OP-I Pelvic Floor Start: 04/27/23 18:02 Freq: Status: Active Protocol: Document 05/08/23 07:32 LRN (Rec: 05/08/23 08:20 LRN [id number]) Pelvic Floor Assessment Urine Urinary Symptoms Dribbling After Urination, Incomplete Emptying Leakage Size Small Leakage Cause Urge Leaks Per Day 1 every 2-3 days. Voiding Frequency 11-14 Nocturia 1 Pads Used In 24 Hours 1 Urine Pad Type Panty Liner Bowel Bowel Surgery No Other Bowel Symptoms None. Bowel Movement Frequency 1/day [place] Stool Chart Comments Type 2-3 Pelvic Clock Pelvic Clock 12-3 Atrophy Pelvic Clock 3-6 Atrophy Pelvic Clock 6-9 Atrophy Pelvic Clock 9-12 Atrophy Prolapse Rectocele Grade 1 Perineal Descent Resting Absent Bearing Present Contraction Ability Manual Muscle Testing Left 1 Manual Muscle Testing Right 0 Manual Muscle Testing Anterior 0 Manual Muscle Testing Posterior 1 Muscle Endurance (Seconds) 1 Number of Quick Contractions In 10 3 Seconds PT-OP-J Posture/Palpation/Skin Start: 04/27/23 18:02 Freq: Status: Active Protocol: Document 05/08/23 07:32 LRN (Rec: 05/08/23 08:20 LRN [id number]) Posture Evaluation Position Standing Head/C-Spine Posture Neutral Position Hip Posture (L) Externally Rotated,(R) Externally Rotated Comments Posture Comments Scoliosis of spine with upper apex R, lower apex L. Sway back. PT-OP-K Range of Motion Start: 04/27/23 18:02 Freq: Status: Active Protocol: Document 05/08/23 07:32 LRN (Rec: 05/08/23 08:20 LRN [id number]) Lumbar Spine Range of Motion Lumbar Spine Active Degrees Testing Position Standing Flexion 95 Extension 30 Rotation Left 20 Rotation Right 10 Lateral Flexion Left 15 Lateral Flexion Right 10 Comments Trunk AROM: Flexion is 95 deg ?s with 74 deg?s hip flexion, Trunk extension is 30 deg?s with 20 deg?s hip extension. Hip Goniometric Range of Motion Hip Right Passive Testing Position Supine Internal Rotation 50 External Rotation 55 Left Passive Testing Position Supine Internal Rotation 60 External Rotation 60 PT-OP-M Strength Start: 04/27/23 18:02 Freq: Status: Active Protocol: Document 05/08/23 07:32 LRN (Rec: 05/08/23 08:20 LRN [id number]) Trunk Strength Trunk Manual Muscle Testing Core Stabilization Lacks core stabilization with MMT of LE's Hip Strength Hip Manual Muscle Testing Right Extension (S1) 4+ Good+ External Rotation 3 Fair Comments Strength is 5/5 except as indicated above Left External Rotation 4 Good Comments Strength is 5/5 except as indicated above PT-OP-Q Treatments Start: 04/27/23 18:02 Freq: Status: Active Protocol: Document 06/04/23 13:03 LRN (Rec: 06/04/23 13:47 LRN [id number]) Therapeutic Exercises Supine Exercises Kegel Supine Exercise Name Kegel quick and long hold contractions. Reps/Minutes 10' Comments Cuing to isolate from abdominal ms. Deep Breathing Supine Exercise Name Deep Breathing training Reps/Minutes 3' Comments Cuing for hand placement self awareness Neuro Re-Education Treatment Coordination Activities Breath w/mvmt Details Exhale with exertion or compression of abdomen Reps/Duration 3' Isolated Kegel Details Kegel in isolation of substitue ms: arch in back & flattening of back Reps/Duration 19' Comments Cuing to try and keep neutral spine. Extra time taken for training Self-Care/Home Management Treatment Education Other Education Reviewed Bladder dairy and discussed fluid intake (AM/PM) , bowel movement frequency, & nighttime voiding frequency. PT-OP-T Assessment and Plan Start: 04/27/23 18:02 Freq: Status: Active Protocol: Document 06/04/23 13:03 LRN (Rec: 06/04/23 13:47 LRN [id number]) Physical Therapy Assessment Goals Four Impairment Urge urinary incontinence Short Term Goal (STG) Pt will be educated in urge deference technique. STG Duration 02 wks-05/18/23 (05/17/23: MET GOAL) Shelter Goal (LTG) Pt will be able to maintain urinary continence in the presence of a strong urge. LTG Duration 12 wks-07/06/23 Three Impairment Incomplete emptying of bladder with frequent UTI's. Impairment wgt 127# Short Term Goal (STG) Improve posture and abdominal soft tissue mobility to improve ability to emptly bladder completely. STG Duration 06 wks-06/19/23 Shelter Goal (LTG) Pt educated in fluid and core pressure management No urinary leakage and no dribbling. LTG Duration 12 wks-07/06/23 Two Impairment Poor coordination of PF contraction with use of substitue ms during Kegel Impairment Poor coordination of PF contractions with bulging of PF while performing a Kegel. Short Term Goal (STG) Improve awareness of proper coordination of PF ms to prevent bulging of PF on contraction. 05/17/23: Initiated training with Kegels STG Duration 06 wks-06/19/23 progressed 05/17/23 Assistant Professor Of Education Goal (LTG) Pt will be educated in core pressure management and decrease urinary dribbling after urination. 06/04/23: Initiated education on core pressure management with sit<>stands. LTG Duration 12 wks-07/06/23 progressed 04/15 One Impairment Pt lacks an independent self care HEP. Short Term Goal (STG) Pt educated in proper transfers to lessen core abdominal pressure. 06/04/23: Initiated education on core pressure management with sit<>stands. STG Duration 02 wks-05/18/23 progressed 06/04/23 Assistant Professor Of Education Goal (LTG) Pt will be independent in a self care HEP for PF strengthening. 05/16/23: Kegels Quick & Long Holds. 06/04/23: Kegels in isolation of PF muscles. LTG Duration 12 wks-07/06/23 progressed Assessment Summary Assessment Pt is a 67 yo female who initially presented with urge urinary incontinence and poor coordination of her PF while performing a Kegel, with bulging on contraction. Pt was found to be retaining 30 cc of urine after voiding. Per bladder diary the pt is drinking (86-98 oz) > 1/2 her body weight (63 oz) in ounces; therefore she is voiding with increased frequency and leaking with an urge. Deep breathing is good, but she is having trouble isolating her PF from substitute muscles. Further training to coordinate breath with movements. Physical Therapy Plan Frequency and Duration Frequency of Treatment 1x/Week Duration of treatment (weeks) 12 Plan of Care Start Date 05/08/23 Plan of Care End Date 07/06/23 Next Visit Focus/Plan Next Note Type Treatment Note Next Visit Plan Next: Ex: Kegel without use of substitute muscles (prevent outward bulging with Kegel), education of reduction of intra-abdominal pressure with transfers and body mechanics, and proper posture sitting/ standing, core/PF stabilization for proper abdominal pressure system, Possible use of EStim if able to insert electrode deep enough for Kegel awareness training. Ther Ex: PF/core/hip (ER, R hip ext) strengthening, improve hip R IR and slightly R ER. STM of abdomen (and urachus) & bladder mobility. POC: Pt education, Manual therapy. ? Biofeedback with vaginal sensor. Therapeutic Exercises, Therapeutic Activities, Neuromuscular Reeducation.
--- NOTE | 2023-06-11 16:01 | PT.OTN ---
Current Diagnoses Muscle weakness (generalized) (06/11/23) Urge incontinence (06/11/23) Post-void dribbling (06/11/23) Frequency of micturition (06/11/23) Physical Therapy Treatment Note PT-OP-A Visit Information Start: 04/27/23 18:02 Freq: Status: Active Protocol: Document 06/11/23 13:02 LRN (Rec: 06/11/23 13:50 LRN [id number]) Out-Patient Physical Therapy Visit Information Visit Information Visit Type Treatment Note Visit Start Time 13:02 Visit Stop Time 13:40 Evaluation Information Evaluation Date 05/08/23 Precautions Precautions Fibromyalgia, Thyroidectomy due to Cancer, 2 births vaginally. PT-OP-B Current Condition Start: 04/27/23 18:02 Freq: Status: Active Protocol: Document 05/08/23 07:32 LRN (Rec: 05/08/23 08:20 LRN [id number]) Current Condition History of Current Condition Onset Date summer Current Complaints Urinary frequency, frequent UTI's since 1988. History of Current Condition Last year started to have dribbling and increased UTI's initiating pt to see Dr. Tari Mora (urologist - ) andwas found to be retaining 30 cc of urine. She was started on estrogen cream and sent to PT. Last month She has had 3-4 UTI's in the past year and just finished having one. She has urinary leakage with an urge. 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 G2, P2, both were vaginal births (1990, 1993), . Treatment Goals Patient/Caregiver Goals Pt goals No urinary leakage and no dribbling. straighten things to emptly bladder completely have fewer UTI's. increase PF strength. Personal Factors Other Personal Factors That May Effect Fibromyalgia, back pain, R Therapy/Recovery knee replacement PT-OP-C Subjective Start: 04/27/23 18:02 Freq: Status: Active Protocol: Document 06/11/23 13:02 LRN (Rec: 06/11/23 13:50 LRN [id number]) OP-PT Subjective Patient Comments Patient Comments Has been doing the ex's and thinks she has figured it out. PT-OP-I Pelvic Floor Start: 04/27/23 18:02 Freq: Status: Active Protocol: Document 05/08/23 07:32 LRN (Rec: 05/08/23 08:20 LRN [id number]) Pelvic Floor Assessment Urine Urinary Symptoms Dribbling After Urination, Incomplete Emptying Leakage Size Small Leakage Cause Urge Leaks Per Day 1 every 2-3 days. Voiding Frequency 11-14 Nocturia 1 Pads Used In 24 Hours 1 Urine Pad Type Panty Liner Bowel Bowel Surgery No Other Bowel Symptoms None. Bowel Movement Frequency 1/day [place] Stool Chart Comments Type 2-3 Pelvic Clock Pelvic Clock 12-3 Atrophy Pelvic Clock 3-6 Atrophy Pelvic Clock 6-9 Atrophy Pelvic Clock 9-12 Atrophy Prolapse Rectocele Grade 1 Perineal Descent Resting Absent Bearing Present Contraction Ability Manual Muscle Testing Left 1 Manual Muscle Testing Right 0 Manual Muscle Testing Anterior 0 Manual Muscle Testing Posterior 1 Muscle Endurance (Seconds) 1 Number of Quick Contractions In 10 3 Seconds PT-OP-J Posture/Palpation/Skin Start: 04/27/23 18:02 Freq: Status: Active Protocol: Document 05/08/23 07:32 LRN (Rec: 05/08/23 08:20 LRN [id number]) Posture Evaluation Position Standing Head/C-Spine Posture Neutral Position Hip Posture (L) Externally Rotated,(R) Externally Rotated Comments Posture Comments Scoliosis of spine with upper apex R, lower apex L. Sway back. PT-OP-K Range of Motion Start: 04/27/23 18:02 Freq: Status: Active Protocol: Document 05/08/23 07:32 LRN (Rec: 05/08/23 08:20 LRN [id number]) Lumbar Spine Range of Motion Lumbar Spine Active Degrees Testing Position Standing Flexion 95 Extension 30 Rotation Left 20 Rotation Right 10 Lateral Flexion Left 15 Lateral Flexion Right 10 Comments Trunk AROM: Flexion is 95 deg ?s with 74 deg?s hip flexion, Trunk extension is 30 deg?s with 20 deg?s hip extension. Hip Goniometric Range of Motion Hip Right Passive Testing Position Supine Internal Rotation 50 External Rotation 55 Left Passive Testing Position Supine Internal Rotation 60 External Rotation 60 PT-OP-M Strength Start: 04/27/23 18:02 Freq: Status: Active Protocol: Document 05/08/23 07:32 LRN (Rec: 05/08/23 08:20 LRN [id number]) Trunk Strength Trunk Manual Muscle Testing Core Stabilization Lacks core stabilization with MMT of LE's Hip Strength Hip Manual Muscle Testing Right Extension (S1) 4+ Good+ External Rotation 3 Fair Comments Strength is 5/5 except as indicated above Left External Rotation 4 Good Comments Strength is 5/5 except as indicated above PT-OP-Q Treatments Start: 04/27/23 18:02 Freq: Status: Active Protocol: Document 06/11/23 13:02 LRN (Rec: 06/11/23 13:50 LRN [id number]) Therapeutic Exercises Supine Exercises Kegels in isolation Supine Exercise Name Kegels isolated from TA/ gluteals Reps/Minutes 5' BKFO/Kegel/inhale Supine Exercise Name BKFO/Kegel/inhale Reps/Minutes 3' Kegel Supine Exercise Name Kegel quick and long hold contractions. Reps/Minutes 6' quick, 6' long hold. Comments Cuing to isolate from abdominal & gluteal ms and draw up/into abdomen. Deep Breathing Supine Exercise Name Deep Breathing training Cued for 6 sec breaths. Reps/Minutes 4' Comments Cuing for hand placement, anchored hand on chest, for self awareness Sitting Exercises Urge Deference Training Sitting Exercise Name Has not had to use this technique. Comments No leakage this last week. Neuro Re-Education Treatment Coordination Activities Transfers w/breath/Kegel Details Transfers w/breath/Kegel: Sup <>sit<>stand Reps/Duration 3' Breath w/mvmt Details Exhale with exertion or compression of abdomen Reps/Duration 2' Isolated Kegel Details Kegel in isolation of substitue ms: arch in back & flattening of back Reps/Duration 6' Comments Cuing to try and keep neutral spine. Extra time taken for training Self-Care/Home Management Treatment Education Patient Education Home Exercise Program Activities Self-Care/Home Management Activities Issued & reviewed HEP: supine Kegel/mahesh BKFO/inhale. Issued handouts for proper sit /stand posture & for coordinated Kegel/breath with transfers. PT-OP-T Assessment and Plan Start: 04/27/23 18:02 Freq: Status: Active Protocol: Document 06/11/23 13:02 LRN (Rec: 06/11/23 13:50 LRN [id number]) Physical Therapy Assessment Goals Four Impairment Urge urinary incontinence Short Term Goal (STG) Pt will be educated in urge deference technique. STG Duration 02 wks-05/18/23 (05/17/23: MET GOAL) Shelter Goal (LTG) Pt will be able to maintain urinary continence in the presence of a strong urge. LTG Duration 12 wks-07/06/23 Three Impairment Incomplete emptying of bladder with frequent UTI's. Impairment wgt 127# Short Term Goal (STG) Improve posture and abdominal soft tissue mobility to improve ability to emptly bladder completely. STG Duration 06 wks-06/19/23 Shelter Goal (LTG) Pt educated in fluid and core pressure management No urinary leakage and no dribbling. LTG Duration 12 wks-07/06/23 Two Impairment Poor coordination of PF contraction with use of substitue ms during Kegel Impairment Poor coordination of PF contractions with bulging of PF while performing a Kegel. Short Term Goal (STG) Improve awareness of proper coordination of PF ms to prevent bulging of PF on contraction. 05/17/23: Initiated training with Kegels. 06/11/23: Palp at external perineum would indicate that the pt feels like she is drawing the PF up and inward with a Kegel. STG Duration wks-06/19/23 progressed Press Set Up Goal (LTG) Pt will be educated in core pressure management and decrease urinary dribbling after urination. 06/04/23: Initiated education on core pressure management with sit<>stands. 06/11/23: Core pressure mgmt exer for sit<>sup, and review of sit<>stand. LTG Duration 12 wks-07/06/23 progressed (decr urinary dribbling after urinatio One Impairment Pt lacks an independent self care HEP. Short Term Goal (STG) Pt educated in proper transfers to lessen core abdominal pressure. 06/04/23: Initiated education on core pressure management with sit<>stands. 06/11/23: Core pressure mgmt exer for sit<>sup, and review of sit<>stand. STG Duration 02 wks-05/18/23 (06/11/23: MET GOAL) Shelter Goal (LTG) Pt will be independent in a self care HEP for PF strengthening. 05/16/23: Kegels Quick & Long Holds. 06/04/23: Kegels in isolation of PF muscles. LTG Duration 12 wks-07/06/23 progressed Assessment Summary Assessment Pt is a 67 yo female who initially presented with urge urinary incontinence and poor coordination of her PF while performing a Kegel, with bulging on contraction. Much improved deep breathing ability over 6 secs, vs pt practicing at home for 10 sec breath. After training of Kegel to draw up and in, pt appeared to be able to lift inward (through palp of external PF) rather than push outward with PF. Pt hasn't had urinary leakage. Physical Therapy Plan Frequency and Duration Frequency of Treatment 1x/Week Duration of treatment (weeks) 12 Plan of Care Start Date 05/08/23 Plan of Care End Date 07/06/23 Next Visit Focus/Plan Next Note Type Treatment Note Next Visit Plan Next: Ex: Check if pt can do Kegel without use of substitute muscles (w/o outward bulging), assess if pt able to reduce intra- abdominal pressure with transfers, assess response to proper posture sitting/ standing. Add: core/PF stabilization for proper abdominal pressure system in coordination of body mechanics w/breath & Kegel. Possible use of EStim if able to insert electrode deep enough for Kegel awareness training. Ther Ex: PF/core/hip (ER, R hip ext) strengthening, improve hip R IR and slightly R ER. STM of abdomen (and urachus) & bladder mobility. POC: Pt education, Manual therapy. ? Biofeedback with vaginal sensor. Therapeutic Exercises, Therapeutic Activities, Neuromuscular Reeducation.
--- NOTE | 2023-06-25 17:12 | PT.OTN ---
Current Diagnoses Muscle weakness (generalized) (06/25/23) Urge incontinence (06/25/23) Post-void dribbling (06/25/23) Frequency of micturition (06/25/23) Physical Therapy Treatment Note PT-OP-A Visit Information Start: 04/27/23 18:02 Freq: Status: Active Protocol: Document 06/25/23 09:06 LRN (Rec: 06/25/23 09:52 LRN [id number]) Out-Patient Physical Therapy Visit Information Visit Information Visit Type Treatment Note Visit Start Time 09:07 Visit Stop Time 09:48 Visit Number 5 Evaluation Information Evaluation Date 05/08/23 Precautions Precautions Fibromyalgia, Thyroidectomy due to Cancer, 2 births vaginally. PT-OP-B Current Condition Start: 04/27/23 18:02 Freq: Status: Active Protocol: Document 05/08/23 07:32 LRN (Rec: 05/08/23 08:20 LRN [id number]) Current Condition History of Current Condition Onset Date summer Current Complaints Urinary frequency, frequent UTI's since 1988. History of Current Condition Last year started to have dribbling and increased UTI's initiating pt to see Dr. Tari Mora (urologist - ) andwas found to be retaining 30 cc of urine. She was started on estrogen cream and sent to PT. Last month She has had 3-4 UTI's in the past year and just finished having one. She has urinary leakage with an urge. 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 G2, P2, both were vaginal births (1990, 1993), . Treatment Goals Patient/Caregiver Goals Pt goals No urinary leakage and no dribbling. straighten things to emptly bladder completely have fewer UTI's. increase PF strength. Personal Factors Other Personal Factors That May Effect Fibromyalgia, back pain, R Therapy/Recovery knee replacement PT-OP-C Subjective Start: 04/27/23 18:02 Freq: Status: Active Protocol: Document 06/25/23 09:06 LRN (Rec: 06/25/23 09:52 LRN [id number]) OP-PT Subjective Patient Comments Patient Comments States she is trying to do transfers with breath work and PF contraction, when she remembers. Has tried the urge deference technique when she had the urge once. PT-OP-I Pelvic Floor Start: 04/27/23 18:02 Freq: Status: Active Protocol: Document 05/08/23 07:32 LRN (Rec: 05/08/23 08:20 LRN [id number]) Pelvic Floor Assessment Urine Urinary Symptoms Dribbling After Urination, Incomplete Emptying Leakage Size Small Leakage Cause Urge Leaks Per Day 1 every 2-3 days. Voiding Frequency 11-14 Nocturia 1 Pads Used In 24 Hours 1 Urine Pad Type Panty Liner Bowel Bowel Surgery No Other Bowel Symptoms None. Bowel Movement Frequency 1/day [place] Stool Chart Comments Type 2-3 Pelvic Clock Pelvic Clock 12-3 Atrophy Pelvic Clock 3-6 Atrophy Pelvic Clock 6-9 Atrophy Pelvic Clock 9-12 Atrophy Prolapse Rectocele Grade 1 Perineal Descent Resting Absent Bearing Present Contraction Ability Manual Muscle Testing Left 1 Manual Muscle Testing Right 0 Manual Muscle Testing Anterior 0 Manual Muscle Testing Posterior 1 Muscle Endurance (Seconds) 1 Number of Quick Contractions In 10 3 Seconds PT-OP-J Posture/Palpation/Skin Start: 04/27/23 18:02 Freq: Status: Active Protocol: Document 05/08/23 07:32 LRN (Rec: 05/08/23 08:20 LRN [id number]) Posture Evaluation Position Standing Head/C-Spine Posture Neutral Position Hip Posture (L) Externally Rotated,(R) Externally Rotated Comments Posture Comments Scoliosis of spine with upper apex R, lower apex L. Sway back. PT-OP-K Range of Motion Start: 04/27/23 18:02 Freq: Status: Active Protocol: Document 05/08/23 07:32 LRN (Rec: 05/08/23 08:20 LRN [id number]) Lumbar Spine Range of Motion Lumbar Spine Active Degrees Testing Position Standing Flexion 95 Extension 30 Rotation Left 20 Rotation Right 10 Lateral Flexion Left 15 Lateral Flexion Right 10 Comments Trunk AROM: Flexion is 95 deg ?s with 74 deg?s hip flexion, Trunk extension is 30 deg?s with 20 deg?s hip extension. Hip Goniometric Range of Motion Hip Right Passive Testing Position Supine Internal Rotation 50 External Rotation 55 Left Passive Testing Position Supine Internal Rotation 60 External Rotation 60 PT-OP-M Strength Start: 04/27/23 18:02 Freq: Status: Active Protocol: Document 05/08/23 07:32 LRN (Rec: 05/08/23 08:20 LRN [id number]) Trunk Strength Trunk Manual Muscle Testing Core Stabilization Lacks core stabilization with MMT of LE's Hip Strength Hip Manual Muscle Testing Right Extension (S1) 4+ Good+ External Rotation 3 Fair Comments Strength is 5/5 except as indicated above Left External Rotation 4 Good Comments Strength is 5/5 except as indicated above PT-OP-Q Treatments Start: 04/27/23 18:02 Freq: Status: Active Protocol: Document 06/25/23 09:06 LRN (Rec: 06/25/23 09:52 LRN [id number]) Therapeutic Exercises Supine Exercises Kegels in isolation Supine Exercise Name Kegels isolated from TA with BKFO ex Reps/Minutes 4' BKFO/Kegel/inhale Supine Exercise Name BKFO/Kegel/inhale Reps/Minutes 11' Comments Extra time to educ pt on ex, to do correct, & max melani resistance Deep Breathing Supine Exercise Name Deep Breathing training Cued for 6 sec breaths. Reps/Minutes 4' Comments Cuing for hand placement, anchored hand on chest, for self awareness Prone Exercises Hip ext Prone Exercise Name R hip ext strengthening Side right Reps/Minutes 6' Comments Much cuing for pelvis/core to remain in neutral. Sidelying Exercises [place] Sidelying Exercise Name Hip ER strengthening Side bilateral Reps/Minutes 15x each Comments Cuing to keep pelvis/core in neutral. Sitting Exercises Kegel w/adductor squeeze Sitting Exercise Name Kegel w/pillow squeeze. Reps/Minutes 10' Deep Breathing\ Sitting Exercise Name Deep Breathing Reps/Minutes 2' Comments Cuing for hand placement self awareness Self-Care/Home Management Treatment Education Patient Education Home Exercise Program Activities Self-Care/Home Management Activities HEP issued: hip ER & ext strengthening. PT-OP-T Assessment and Plan Start: 04/27/23 18:02 Freq: Status: Active Protocol: Document 06/25/23 09:06 LRN (Rec: 06/25/23 09:52 LRN [id number]) Physical Therapy Assessment Goals Four Impairment Urge urinary incontinence Short Term Goal (STG) Pt will be educated in urge deference technique. STG Duration 02 wks-05/18/23 (05/17/23: MET GOAL) Half-Way Goal (LTG) Pt will be able to maintain urinary continence in the presence of a strong urge. LTG Duration 12 wks-07/06/23 Three Impairment Incomplete emptying of bladder with frequent UTI's. Impairment wgt 127# Short Term Goal (STG) Improve posture and abdominal soft tissue mobility to improve ability to emptly bladder completely. STG Duration 06 wks-06/19/23 Combat Systems Operator Goal (LTG) Pt educated in fluid and core pressure management No urinary leakage and no dribbling. LTG Duration 12 wks-07/06/23 Two Impairment Poor coordination of PF contraction with use of substitue ms during Kegel Impairment Poor coordination of PF contractions with bulging of PF while performing a Kegel. Short Term Goal (STG) Improve awareness of proper coordination of PF ms to prevent bulging of PF on contraction. 05/17/23: Initiated training with Kegels. 06/11/23: Palp at external perineum would indicate that the pt feels like she is drawing the PF up and inward with a Kegel. STG Duration 06 wks-06/19/23 progressed Half-Way Goal (LTG) Pt will be educated in core pressure management and decrease urinary dribbling after urination. 06/04/23: Initiated education on core pressure management with sit<>stands. 06/11/23: Core pressure mgmt exer for sit<>sup, and review of sit<>stand. LTG Duration 12 wks-07/06/23 progressed (decr urinary dribbling after urinatio) One Impairment Pt lacks an independent self care HEP. Short Term Goal (STG) Pt educated in proper transfers to lessen core abdominal pressure. 06/04/23: Initiated education on core pressure management with sit<>stands. 06/11/23: Core pressure mgmt exer for sit<>sup, and review of sit<>stand. STG Duration wks-05/18/23 (06/11/23: MET GOAL) Combat Systems Operator Goal (LTG) Pt will be independent in a self care HEP for PF strengthening. 05/16/23: Kegels Quick & Long Holds. 06/04/23: Kegels in isolation of PF muscles. 06/25/23: HEP: Kegel with hip ER (sup & sit), I/S for Kegel w/Hip strengthening of: ER (clamshell), ext in sup, stand and stand bent over, LTG Duration 12 wks-07/06/23 progressed Assessment Summary Assessment Pt is a 67 yo female who initially presented with urge urinary incontinence and poor coordination of her PF while performing a Kegel, with bulging on contraction. Deep breathing is good sup except for very end breath moves more in chest, in Sitting the pt is not able to perform a proper deep breath. Kegel is done with TA when doing a BKFO . Pt learning to do transfers with coordinated breaths. Pt is aware of proper posturing. Physical Therapy Plan Frequency and Duration Frequency of Treatment 1x/Week Duration of treatment (weeks) 12 Plan of Care Start Date 05/08/23 Plan of Care End Date 07/06/23 Next Visit Focus/Plan Next Note Type Treatment Note Next Visit Plan Next: Ex: Palpate if pt can do Kegel without use of substitute muscles (w/o outward bulging), check if pt able to do deep breath in sitting. assess if pt able to coordinate breath with transfers (to reduce intraabdominal pressure). Add: core/PF stabilization for proper abdominal pressure system in coordination of body mechanics w/breath & Kegel. Educate in proper posture sit/ stand. Possible use of EStim if able to insert electrode deep enough for Kegel awareness training. Ther Ex: PF/core/hip (ER, R hip ext) strengthening, improve hip R IR and slightly R ER. STM of abdomen (and urachus) & bladder mobility. POC: Pt education, Manual therapy. ? Biofeedback with vaginal sensor. Therapeutic Exercises, Therapeutic Activities, Neuromuscular Reeducation.
--- NOTE | 2023-07-06 15:37 | PT.OTN ---
Current Diagnoses Muscle weakness (generalized) (07/06/23) Urge incontinence (07/06/23) Post-void dribbling (07/06/23) Frequency of micturition (07/06/23) Physical Therapy Treatment Note PT-OP-A Visit Information Start: 04/27/23 18:02 Freq: Status: Active Protocol: Document 07/06/23 09:51 LRN (Rec: 07/06/23 10:38 LRN [id number]) Out-Patient Physical Therapy Visit Information Visit Information Visit Type Treatment Note Visit Start Time 09:51 Visit Stop Time 10:34 Visit Number 6 Evaluation Information Evaluation Date 05/08/23 Precautions Precautions Fibromyalgia, Thyroidectomy due to Cancer, 2 births vaginally. PT-OP-B Current Condition Start: 04/27/23 18:02 Freq: Status: Active Protocol: Document 05/08/23 07:32 LRN (Rec: 05/08/23 08:20 LRN [id number]) Current Condition History of Current Condition Onset Date summer Current Complaints Urinary frequency, frequent UTI's since 1988. History of Current Condition Last year started to have dribbling and increased UTI's initiating pt to see Dr. Tari Mora (urologist - ) andwas found to be retaining 30 cc of urine. She was started on estrogen cream and sent to PT. Last month She has had 3-4 UTI's in the past year and just finished having one. She has urinary leakage with an urge. 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 G2, P2, both were vaginal births (1990, 1993), . Treatment Goals Patient/Caregiver Goals Pt goals No urinary leakage and no dribbling. straighten things to emptly bladder completely have fewer UTI's. increase PF strength. Personal Factors Other Personal Factors That May Effect Fibromyalgia, back pain, R Therapy/Recovery knee replacement PT-OP-C Subjective Start: 04/27/23 18:02 Freq: Status: Active Protocol: Document 07/06/23 09:51 LRN (Rec: 07/06/23 10:38 LRN [id number]) OP-PT Subjective Patient Comments Patient Comments States she is having to overcome decades of habit. 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 Eats a lot of fiber. PT-OP-I Pelvic Floor Start: 04/27/23 18:02 Freq: Status: Active Protocol: Document 05/08/23 07:32 LRN (Rec: 05/08/23 08:20 LRN [id number]) Pelvic Floor Assessment Urine Urinary Symptoms Dribbling After Urination, Incomplete Emptying Leakage Size Small Leakage Cause Urge Leaks Per Day 1 every 2-3 days. Voiding Frequency 11-14 Nocturia 1 Pads Used In 24 Hours 1 Urine Pad Type Panty Liner Bowel Bowel Surgery No Other Bowel Symptoms None. Bowel Movement Frequency 1/day Mcmullen Stool Chart Comments Type 2-3 Pelvic Clock Pelvic Clock 12-3 Atrophy Pelvic Clock 3-6 Atrophy Pelvic Clock 6-9 Atrophy Pelvic Clock 9-12 Atrophy Prolapse Rectocele Grade 1 Perineal Descent Resting Absent Bearing Present Contraction Ability Manual Muscle Testing Left 1 Manual Muscle Testing Right 0 Manual Muscle Testing Anterior 0 Manual Muscle Testing Posterior 1 Muscle Endurance (Seconds) 1 Number of Quick Contractions In 10 3 Seconds PT-OP-J Posture/Palpation/Skin Start: 04/27/23 18:02 Freq: Status: Active Protocol: Document 05/08/23 07:32 LRN (Rec: 05/08/23 08:20 LRN [id number]) Posture Evaluation Position Standing Head/C-Spine Posture Neutral Position Hip Posture (L) Externally Rotated,(R) Externally Rotated Comments Posture Comments Scoliosis of spine with upper apex R, lower apex L. Sway back. PT-OP-K Range of Motion Start: 04/27/23 18:02 Freq: Status: Active Protocol: Document 05/08/23 07:32 LRN (Rec: 05/08/23 08:20 LRN [id number]) Lumbar Spine Range of Motion Lumbar Spine Active Degrees Testing Position Standing Flexion 95 Extension 30 Rotation Left 20 Rotation Right 10 Lateral Flexion Left 15 Lateral Flexion Right 10 Comments Trunk AROM: Flexion is 95 deg ?s with 74 deg?s hip flexion, Trunk extension is 30 deg?s with 20 deg?s hip extension. Hip Goniometric Range of Motion Hip Right Passive Testing Position Supine Internal Rotation 50 External Rotation 55 Left Passive Testing Position Supine Internal Rotation 60 External Rotation 60 PT-OP-M Strength Start: 04/27/23 18:02 Freq: Status: Active Protocol: Document 05/08/23 07:32 LRN (Rec: 05/08/23 08:20 LRN [id number]) Trunk Strength Trunk Manual Muscle Testing Core Stabilization Lacks core stabilization with MMT of LE's Hip Strength Hip Manual Muscle Testing Right Extension (S1) 4+ Good+ External Rotation 3 Fair Comments Strength is 5/5 except as indicated above Left External Rotation 4 Good Comments Strength is 5/5 except as indicated above PT-OP-Q Treatments Start: 04/27/23 18:02 Freq: Status: Active Protocol: Document 07/06/23 09:51 LRN (Rec: 07/06/23 10:38 LRN [id number]) Therapeutic Exercises Supine Exercises Kegels in isolation Supine Exercise Name Kegels isolated from TA with BKFO ex Reps/Minutes 8' Manual Therapy Treatment Soft Tissue Mobilization Abdomen Body Location Lower abdomen: Bladder/Uterus Intensity/Depth Moderate Body Position Supine PF Body Location Hip IR Mobilization Type Myofascial Release Body Position Supine Neuro Re-Education Treatment Coordination Activities Kegel>PF relaxation Details Kegel f/b relaxation Comments Much time taken to get pt to coordinate relaxation after Kegel requiring cuing to push out during relaxation. Isolated Kegel Details Kegel in isolation of substitue ms: arch in back & flattening of back Reps/Duration 6' Comments Cuing to try and keep neutral spine. Extra time taken for training Self-Care/Home Management Treatment Education Other Education Education in anatomy of PF region and discussion on effects of prolapses on other organs. PT-OP-T Assessment and Plan Start: 04/27/23 18:02 Freq: Status: Active Protocol: Document 07/06/23 09:51 LRN (Rec: 07/06/23 10:38 LRN [id number]) Physical Therapy Assessment Goals Four Impairment Urge urinary incontinence Short Term Goal (STG) Pt will be educated in urge deference technique. STG Duration 02 wks-05/18/23 (05/17/23: MET GOAL) [facility] Goal (LTG) Pt will be able to maintain urinary continence in the presence of a strong urge. LTG Duration 12 wks-07/06/23 Three Impairment Incomplete emptying of bladder with frequent UTI's. Impairment wgt 127# Short Term Goal (STG) Improve posture and abdominal soft tissue mobility to improve ability to emptly bladder completely. STG Duration 06 wks-06/19/23 [facility] Goal (LTG) Pt educated in fluid and core pressure management No urinary leakage and no dribbling. LTG Duration 12 wks-07/06/23 Two Impairment Poor coordination of PF contraction with use of substitue ms during Kegel Impairment Poor coordination of PF contractions with bulging of PF while performing a Kegel. Short Term Goal (STG) Improve awareness of proper coordination of PF ms to prevent bulging of PF on contraction. 05/17/23: Initiated training with Kegels. 06/11/23: Palp at external perineum would indicate that the pt feels like she is drawing the PF up and inward with a Kegel. STG Duration wks-06/19/23 progressed Pyrometer Temperature Regulator Goal (LTG) Pt will be educated in core pressure management and decrease urinary dribbling after urination. 06/04/23: Initiated education on core pressure management with sit<>stands. 06/11/23: Core pressure mgmt exer for sit<>sup, and review of sit<>stand. LTG Duration 12 wks-07/06/23 progressed (decr urinary dribbling after urinatio) One Impairment Pt lacks an independent self care HEP. Short Term Goal (STG) Pt educated in proper transfers to lessen core abdominal pressure. 06/04/23: Initiated education on core pressure management with sit<>stands. 06/11/23: Core pressure mgmt exer for sit<>sup, and review of sit<>stand. STG Duration 02 wks-05/18/23 (06/11/23: MET GOAL) [facility] Goal (LTG) Pt will be independent in a self care HEP for PF strengthening. 05/16/23: Kegels Quick & Long Holds. 06/04/23: Kegels in isolation of PF muscles. 06/25/23: HEP: Kegel with hip ER (sup & sit), I/S for Kegel w/Hip strengthening of: ER (clamshell), ext in sup, stand and stand bent over, LTG Duration 12 wks-07/06/23 progressed Assessment Summary Assessment Pt is a 67 yo female who initially presented with urge urinary incontinence and poor coordination of her PF while performing a Kegel, with bulging on contraction. Today she demonstrated the ability to draw PF up & in while in supine, and after training was able to coordination relaxation after Kegel. She now has greater awareness of doing a Kegel w/o substitute ms and no c/o abdominal pain after exercise. Pt needs PF relaxation training. Physical Therapy Plan Frequency and Duration Frequency of Treatment 1x/Week Duration of treatment (weeks) 12 Plan of Care Start Date 05/08/23 Plan of Care End Date 07/06/23 Next Visit Focus/Plan Next Note Type Treatment Note Next Visit Plan Next: Urge incontinence training. Review/Educate in Proper sit/stand posture and coordination breath with transfers (to reduce intraabdominal pressure). Check for cystocele and if still coordinating PF contracton/relaxation. Ex: Palpate if pt can do Kegel without use of substitute muscles (w/o outward bulging), check if pt able to do deep breath in sitting. Add: core/PF stabilization for proper abdominal pressure system in coordination of body mechanics w/breath & Kegel. Ther Ex: PF/core/hip (ER, R hip ext) strengthening, improve hip R IR and slightly R ER. MOBILIZATION: abdomen (and urachus) & bladder mobility. POC: Pt education, Manual therapy. ? Biofeedback with vaginal sensor. Therapeutic Exercises, Therapeutic Activities, Neuromuscular Reeducation.
--- NOTE | 2023-07-13 12:21 | PT.OTN ---
Current Diagnoses Muscle weakness (generalized) (07/13/23) Urge incontinence (07/13/23) Post-void dribbling (07/13/23) Frequency of micturition (07/13/23) Physical Therapy Treatment Note PT-OP-A Visit Information Start: 04/27/23 18:02 Freq: Status: Active Protocol: Document 07/13/23 09:49 LRN (Rec: 07/13/23 10:31 LRN [id number]) Out-Patient Physical Therapy Visit Information Visit Information Visit Type Treatment Note Visit Start Time 09:49 Visit Stop Time 10:29 Visit Number 7 Evaluation Information Evaluation Date 05/08/23 Precautions Precautions Fibromyalgia, Thyroidectomy due to Cancer, 2 births vaginally. PT-OP-B Current Condition Start: 04/27/23 18:02 Freq: Status: Active Protocol: Document 05/08/23 07:32 LRN (Rec: 05/08/23 08:20 LRN [id number]) Current Condition History of Current Condition Onset Date summer Current Complaints Urinary frequency, frequent UTI's since 1988. History of Current Condition Last year started to have dribbling and increased UTI's initiating pt to see Dr. Tari Mora (urologist - ) andwas found to be retaining 30 cc of urine. She was started on estrogen cream and sent to PT. Last month She has had 3-4 UTI's in the past year and just finished having one. She has urinary leakage with an urge. 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 G2, P2, both were vaginal births (1990, 1993), . Treatment Goals Patient/Caregiver Goals Pt goals No urinary leakage and no dribbling. straighten things to emptly bladder completely have fewer UTI's. increase PF strength. Personal Factors Other Personal Factors That May Effect Fibromyalgia, back pain, R Therapy/Recovery knee replacement PT-OP-C Subjective Start: 04/27/23 18:02 Freq: Status: Active Protocol: Document 07/13/23 09:49 LRN (Rec: 07/13/23 10:31 LRN [id number]) OP-PT Subjective Patient Comments Patient Comments States she is urinating less often, BM's increased to 2x/ day. PT-OP-I Pelvic Floor Start: 04/27/23 18:02 Freq: Status: Active Protocol: Document 07/13/23 09:49 LRN (Rec: 07/13/23 10:31 LRN [id number]) Pelvic Floor Assessment Urine Urinary Symptoms Hesitancy Bowel Bowel Movement Frequency 1-2/day Swift Stool Chart Comments 4-5 Prolapse Cystocele Grade 1 Perineal Descent Resting Absent Bearing Present Contraction Ability Voluntary Contraction Moderate Voluntary Relaxation Weak Manual Muscle Testing Left 3 Manual Muscle Testing Right 3 Manual Muscle Testing Anterior 3 Manual Muscle Testing Posterior 3 Number of Quick Contractions In 10 10 Seconds PT-OP-J Posture/Palpation/Skin Start: 04/27/23 18:02 Freq: Status: Active Protocol: Document 05/08/23 07:32 LRN (Rec: 05/08/23 08:20 LRN [id number]) Posture Evaluation Position Standing Head/C-Spine Posture Neutral Position Hip Posture (L) Externally Rotated,(R) Externally Rotated Comments Posture Comments Scoliosis of spine with upper apex R, lower apex L. Sway back. PT-OP-K Range of Motion Start: 04/27/23 18:02 Freq: Status: Active Protocol: Document 05/08/23 07:32 LRN (Rec: 05/08/23 08:20 LRN [id number]) Lumbar Spine Range of Motion Lumbar Spine Active Degrees Testing Position Standing Flexion 95 Extension 30 Rotation Left 20 Rotation Right 10 Lateral Flexion Left 15 Lateral Flexion Right 10 Comments Trunk AROM: Flexion is 95 deg ?s with 74 deg?s hip flexion, Trunk extension is 30 deg?s with 20 deg?s hip extension. Hip Goniometric Range of Motion Hip Right Passive Testing Position Supine Internal Rotation 50 External Rotation 55 Left Passive Testing Position Supine Internal Rotation 60 External Rotation 60 PT-OP-M Strength Start: 04/27/23 18:02 Freq: Status: Active Protocol: Document 05/08/23 07:32 LRN (Rec: 05/08/23 08:20 LRN [id number]) Trunk Strength Trunk Manual Muscle Testing Core Stabilization Lacks core stabilization with MMT of LE's Hip Strength Hip Manual Muscle Testing Right Extension (S1) 4+ Good+ External Rotation 3 Fair Comments Strength is 5/5 except as indicated above Left External Rotation 4 Good Comments Strength is 5/5 except as indicated above PT-OP-Q Treatments Start: 04/27/23 18:02 Freq: Status: Active Protocol: Document 07/13/23 09:49 LRN (Rec: 07/13/23 10:31 LRN [id number]) Therapeutic Exercises Supine Exercises Kegels in isolation Supine Exercise Name Kegels isolated from TA with BKFO ex Reps/Minutes 8' Kegel Supine Exercise Name Quick & Long hold PF contractions Reps/Minutes 14' Comments See PF assess for MMT Sitting Exercises Urge Deference Training Sitting Exercise Name Verbal review of Urge deference technique Reps/Minutes 1' Deep Breathing\ Sitting Exercise Name Deep Breathing Reps/Minutes 2' Comments Cuing for breath through belly Neuro Re-Education Treatment Coordination Activities Urinary voiding training Details Coord of posture/breathing, PF relax w/and p/voiding, leaning fwd at end Reps/Duration 8' Comments Pt needed cuing for posture, and breathing coordinating with PF relaxation. Verbal cuing to order and coordination of activities when urinary voiding. Self-Care/Home Management Treatment Education Other Education Discussed & reviewed pt's recent weekly bladder diary. Discussed norms for GM voiding frequency and bowel types, pt reported voiding 1-2x/day and type 4,5. Discussed urinary frequency voiding every 2 hrs is okay, and that she might be able to retrainin bladder to every 2.5 hrs as she this is her frequency sometimes. Activities Self-Care/Home Management Activities I/S pt in correct sitting posture to void, and to try voiding and waiting for full bladder emptying (possible 2 voids) before leaning forward to force voiding. Pt to monitor for dribbling after voiding and after forced voiding. Pt to not force voiding if possible. PT-OP-T Assessment and Plan Start: 04/27/23 18:02 Freq: Status: Active Protocol: Document 07/13/23 09:49 LRN (Rec: 07/13/23 10:31 LRN [id number]) Physical Therapy Assessment Goals Four Impairment Urge urinary incontinence Short Term Goal (STG) Pt will be educated in urge deference technique. 07/13/23: Reviewed. STG Duration 02 wks-05/18/23 (05/17/23: MET GOAL) Jail Goal (LTG) Pt will be able to maintain urinary continence in the presence of a strong urge. 07/13/23: 50% of time able to maintain continence. LTG Duration 12 wks-07/06/23 progressing 07/13/23. Three Impairment Incomplete emptying of bladder with frequent UTI's. Impairment wgt 127# Short Term Goal (STG) Improve posture and abdominal soft tissue mobility to improve ability to empty bladder completely. 07/13/23: Pt educated in proper sitting posture for voiding. STG Duration 06 wks-06/19/23 progressing 07/13/23 [employer] Goal (LTG) Pt educated in fluid and core pressure management No urinary leakage and no dribbling. LTG Duration 12 wks-07/06/23 Two Impairment Poor coordination of PF contraction with use of substitue ms during Kegel Impairment Poor coordination of PF contractions with bulging of PF while performing a Kegel. Short Term Goal (STG) Improve awareness of proper coordination of PF ms to prevent bulging of PF on contraction. 05/17/23: Initiated training with Kegels. 06/11/23: Palp at external perineum would indicate that the pt feels like she is drawing the PF up and inward with a Kegel. 07/13/23: Pt able to perform a properly coordinated PF contraction. STG Duration wks-06/19/23 (07/13/23: MET GOAL) [employer] Representative Goal (LTG) Pt will be educated in core pressure management and decrease urinary dribbling after urination. 06/04/23: Initiated education on core pressure management with sit<>stands. 06/11/23: Core pressure mgmt exer for sit<>sup, and review of sit<>stand. LTG Duration 12 wks-07/06/23 progressed (decr urinary dribbling after urinatio) One Impairment Pt lacks an independent self care HEP. Short Term Goal (STG) Pt educated in proper transfers to lessen core abdominal pressure. 06/04/23: Initiated education on core pressure management with sit<>stands. 06/11/23: Core pressure mgmt exer for sit<>sup, and review of sit<>stand. STG Duration 02 wks-05/18/23 (06/11/23: MET GOAL) Jail Goal (LTG) Pt will be independent in a self care HEP for PF strengthening. 05/16/23: Kegels Quick & Long Holds. 06/04/23: Kegels in isolation of PF muscles. 06/25/23: HEP: Kegel with hip ER (sup & sit), I/S for Kegel w/Hip strengthening of: ER (clamshell), ext in sup, stand and stand bent over, LTG Duration 12 wks-07/06/23 progressed Assessment Summary Assessment Pt is a 67 yo female who initially presented with urge urinary incontinence and poor coordination of her PF while performing a Kegel, with bulging on contraction. She can now demonstrate the ability to draw PF up & in while in supine, and after training is able to coordination relaxation after Kegel. No cytocele present. She has greater awareness of doing a Kegel w/o substitute ms and no c/o abdominal pain after exercise. Pt needs PF relaxation training. Physical Therapy Plan Frequency and Duration Frequency of Treatment 1x/Week Duration of treatment (weeks) 4 Plan of Care Start Date 07/13/23 Plan of Care End Date 09/07/23 Next Visit Focus/Plan Next Note Type Treatment Note Next Visit Plan Next: Educate in fluid and core pressure management. Assess for dribbling after voiding and after forced voiding. Review/Educate in Proper sit/ stand posture and coordination breath with transfers (to reduce intraabdominal pressure ). Add: core/PF stabilization for proper abdominal pressure system in coordination of body mechanics w/breath & Kegel. Ex: Palpate if pt can do Kegel without use of substitute muscles, check if pt able to do deep breath in sitting. Ther Ex: PF/core/hip (ER, R hip ext) strengthening, improve hip R IR and slightly R ER. MOBILIZATION: abdomen (and urachus) & bladder mobility.
--- NOTE | 2023-07-20 10:52 | PT.OTN ---
Current Diagnoses Muscle weakness (generalized) (07/20/23) Urge incontinence (07/20/23) Post-void dribbling (07/20/23) Frequency of micturition (07/20/23) Physical Therapy Treatment Note PT-OP-A Visit Information Start: 04/27/23 18:02 Freq: Status: Active Protocol: Document 07/20/23 09:57 LRN (Rec: 07/20/23 10:52 LRN [id number]) Out-Patient Physical Therapy Visit Information Visit Information Visit Start Time 09:57 Visit Stop Time 10:39 Visit Number 8 Evaluation Information Evaluation Date 05/08/23 Precautions Precautions Fibromyalgia, Thyroidectomy due to Cancer, 2 births vaginally. PT-OP-B Current Condition Start: 04/27/23 18:02 Freq: Status: Active Protocol: Document 05/08/23 07:32 LRN (Rec: 05/08/23 08:20 LRN [id number]) Current Condition History of Current Condition Onset Date summer Current Complaints Urinary frequency, frequent UTI's since 1988. History of Current Condition Last year started to have dribbling and increased UTI's initiating pt to see Dr. Tari Mora (urologist - ) andwas found to be retaining 30 cc of urine. She was started on estrogen cream and sent to PT. Last month She has had 3-4 UTI's in the past year and just finished having one. She has urinary leakage with an urge. 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 G2, P2, both were vaginal births (1990, 1993), . Treatment Goals Patient/Caregiver Goals Pt goals No urinary leakage and no dribbling. straighten things to emptly bladder completely have fewer UTI's. increase PF strength. Personal Factors Other Personal Factors That May Effect Fibromyalgia, back pain, R Therapy/Recovery knee replacement PT-OP-C Subjective Start: 04/27/23 18:02 Freq: Status: Active Protocol: Document 07/20/23 09:57 LRN (Rec: 07/20/23 10:52 LRN [id number]) OP-PT Subjective Patient Comments Patient Comments States she is sitting more upright to urinate and have BM and has noticed she could wait 3.25 hrs before urinating again. States she fears if she stops drinking she will have a UTI. Able to maintain continence with strong urge still 50% of time. PT-OP-I Pelvic Floor Start: 04/27/23 18:02 Freq: Status: Active Protocol: Document 07/20/23 09:57 LRN (Rec: 07/20/23 10:52 LRN [id number]) Pelvic Floor Assessment Urine Other Urinary Symptoms No dribbling after urination PT-OP-J Posture/Palpation/Skin Start: 04/27/23 18:02 Freq: Status: Active Protocol: Document 05/08/23 07:32 LRN (Rec: 05/08/23 08:20 LRN [id number]) Posture Evaluation Position Standing Head/C-Spine Posture Neutral Position Hip Posture (L) Externally Rotated,(R) Externally Rotated Comments Posture Comments Scoliosis of spine with upper apex R, lower apex L. Sway back. PT-OP-K Range of Motion Start: 04/27/23 18:02 Freq: Status: Active Protocol: Document 05/08/23 07:32 LRN (Rec: 05/08/23 08:20 LRN [id number]) Lumbar Spine Range of Motion Lumbar Spine Active Degrees Testing Position Standing Flexion 95 Extension 30 Rotation Left 20 Rotation Right 10 Lateral Flexion Left 15 Lateral Flexion Right 10 Comments Trunk AROM: Flexion is 95 deg ?s with 74 deg?s hip flexion, Trunk extension is 30 deg?s with 20 deg?s hip extension. Hip Goniometric Range of Motion Hip Right Passive Testing Position Supine Internal Rotation 50 External Rotation 55 Left Passive Testing Position Supine Internal Rotation 60 External Rotation 60 PT-OP-M Strength Start: 04/27/23 18:02 Freq: Status: Active Protocol: Document 05/08/23 07:32 LRN (Rec: 05/08/23 08:20 LRN [id number]) Trunk Strength Trunk Manual Muscle Testing Core Stabilization Lacks core stabilization with MMT of LE's Hip Strength Hip Manual Muscle Testing Right Extension (S1) 4+ Good+ External Rotation 3 Fair Comments Strength is 5/5 except as indicated above Left External Rotation 4 Good Comments Strength is 5/5 except as indicated above PT-OP-Q Treatments Start: 04/27/23 18:02 Freq: Status: Active Protocol: Document 07/20/23 09:57 LRN (Rec: 07/20/23 10:52 N [id number]) Therapeutic Exercises Supine Exercises Kegels in isolation Supine Exercise Name Kegels isolated from TA/hips f /b PF relaxation Reps/Minutes 3' Prone Exercises Hip ext Prone Exercise Name R hip ext strengthening Side bilateral Reps/Minutes 15x R, 10x L Comments Cuing for coordination Sidelying Exercises Clamsheel Sidelying Exercise Name Clamshell/TA/breathwork & working on coordinating breathwork for PF relax. Reps/Minutes 10x each. Comments Cued exhale lift leg and inhale relax PF with mild push out Neuro Re-Education Treatment Coordination Activities Kegel>PF relaxation Details Kegel f/b relaxation and w/ inhale Reps/Duration 10' Comments Pt able to coordinate relaxation after Kegel requiring cuing to push out during relaxation and breath ( inhale). Transfers w/breath/Kegel Details Transfers w/breath/Kegel: Sup <>sit<>stand Reps/Duration 3' Comments Pt demonstrates good coordination of breath w/ transfers. Self-Care/Home Management Treatment Education Other Education Discussion on if pt should continue her ex's post-therapy . Discussion on fluid intake. PT-OP-T Assessment and Plan Start: 04/27/23 18:02 Freq: Status: Active Protocol: Document 07/20/23 09:57 LRN (Rec: 07/20/23 10:52 N [id number]) Physical Therapy Assessment Goals Four Impairment Urge urinary incontinence Short Term Goal (STG) Pt will be educated in urge deference technique. 07/13/23: Reviewed. STG Duration 02 wks-05/18/23 (05/17/23: MET GOAL) Hollock Maker Goal (LTG) Pt will be able to maintain urinary continence in the presence of a strong urge. 07/13/23: 50% of time able to maintain continence. LTG Duration 12 wks-07/06/23 progressing 07/13/23. Three Impairment Incomplete emptying of bladder with frequent UTI's. Impairment wgt 127# Short Term Goal (STG) Improve posture and abdominal soft tissue mobility to improve ability to empty bladder completely. 07/13/23: Pt educated in proper sitting posture for voiding. 07/20/23: Pt able have 3.25 hrs between voiding x 1; therefore pt feels she is empthing bladder more. STG Duration 06 wks-06/19/23 progressing 07/20/23 Prison Goal (LTG) Pt educated in fluid and core pressure management No urinary leakage and no dribbling. 07/20/23: Pt educated and able to demonstrate fluid & core pressure management during transfer. Pt is having no dribbling. Urinary leakage with strong urge. LTG Duration 12 wks-07/06/23 (07/20/23: Partially met goal) leakage with strong urge. Two Impairment Poor coordination of PF contraction with use of substitue ms during Kegel Impairment Poor coordination of PF contractions with bulging of PF while performing a Kegel. Short Term Goal (STG) Improve awareness of proper coordination of PF ms to prevent bulging of PF on contraction. 05/17/23: Initiated training with Kegels. 06/11/23: Palp at external perineum would indicate that the pt feels like she is drawing the PF up and inward with a Kegel. 07/13/23: Pt able to perform a properly coordinated PF contraction. STG Duration 06 wks-06/19/23 (07/13/23: MET GOAL) Hollock Maker Goal (LTG) Pt will be educated in core pressure management and decrease urinary dribbling after urination. 06/04/23: Initiated education on core pressure management with sit<>stands. 06/11/23: Core pressure mgmt exer for sit<>sup, and review of sit<>stand. 07/20/23: Pt educated and able to demonstrate fluid & core pressure management during transfer. Pt is having no dribbling. LTG Duration 12 wks-07/06/23 (07/20/23: MET GOAL) One Impairment Pt lacks an independent self care HEP. Short Term Goal (STG) Pt educated in proper transfers to lessen core abdominal pressure. 06/04/23: Initiated education on core pressure management with sit<>stands. 06/11/23: Core pressure mgmt exer for sit<>sup, and review of sit<>stand. STG Duration 02 wks-05/18/23 (06/11/23: MET GOAL) Hollock Maker Goal (LTG) Pt will be independent in a self care HEP for PF strengthening. 05/16/23: Kegels Quick & Long Holds. 06/04/23: Kegels in isolation of PF muscles. 06/25/23: HEP: Kegel with hip ER (sup & sit), I/S for Kegel w/Hip strengthening of: ER (clamshell), ext in sup, stand and stand bent over, LTG Duration 12 wks-07/06/23 progressed Assessment Summary Assessment Pt is a 67 yo female who initially presented with urge urinary incontinence and poor coordination of her PF while performing a Kegel, with bulging on contraction. 50% leaking with strong urge; possibly due to behavior ( waiting too long between voids , etc) or anterior PF weakness . She can now demonstrate the ability to draw PF up & in while in supine, and after training is able to coordination relaxation after Kegel. Able to have BM w/o pushing at least 80% of time and BM's, type 4. Physical Therapy Plan Frequency and Duration Frequency of Treatment 1x/Week Duration of treatment (weeks) 4 Plan of Care Start Date 07/13/23 Plan of Care End Date 09/07/23 Next Visit Focus/Plan Next Note Type Treatment Note Next Visit Plan Next: Review bladder diary for reason of 50% UI with strong urge. Review/Educate in Proper sit/stand posture and coordination breath with transfers (to reduce intra- abdominal pressure). Progression of PF stabilization, Check hip symmetry for strength/mobility (ER & ext strengthening, improve hip R IR and slightly R ER); for proper abdominal pressure system in coordination of body mechanics w/breath & Kegel. Ex: Check if pt able to do deep breath in sitting. MOBILIZATION: abdomen (and urachus) & bladder mobility.
--- NOTE | 2023-07-27 17:19 | PT.OTN ---
Current Diagnoses Muscle weakness (generalized) (07/27/23) Urge incontinence (07/27/23) Post-void dribbling (07/27/23) Frequency of micturition (07/27/23) Physical Therapy Treatment Note PT-OP-A Visit Information Start: 04/27/23 18:02 Freq: Status: Active Protocol: Document 07/27/23 10:01 LRN (Rec: 07/27/23 10:48 LRN [id number]) Out-Patient Physical Therapy Visit Information Visit Information Visit Type Treatment Note Visit Start Time 10:01 Visit Stop Time 10:45 Visit Number 9 PT-OP-B Current Condition Start: 04/27/23 18:02 Freq: Status: Active Protocol: Document 05/08/23 07:32 LRN (Rec: 05/08/23 08:20 LRN [id number]) Current Condition History of Current Condition Onset Date summer Current Complaints Urinary frequency, frequent UTI's since 1988. History of Current Condition Last year started to have dribbling and increased UTI's initiating pt to see Dr. Tari Mora (urologist - ) andwas found to be retaining 30 cc of urine. She was started on estrogen cream and sent to PT. Last month She has had 3-4 UTI's in the past year and just finished having one. She has urinary leakage with an urge. 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 G2, P2, both were vaginal births (1990, 1993), . Treatment Goals Patient/Caregiver Goals Pt goals No urinary leakage and no dribbling. straighten things to emptly bladder completely have fewer UTI's. increase PF strength. Personal Factors Other Personal Factors That May Effect Fibromyalgia, back pain, R Therapy/Recovery knee replacement PT-OP-C Subjective Start: 04/27/23 18:02 Freq: Status: Active Protocol: Document 07/27/23 10:01 LRN (Rec: 07/27/23 10:48 LRN [id number]) OP-PT Subjective Patient Comments Patient Comments Found with sex, became engorged and had to empty several time. Intake of salt caused pt to be more thirsty and using bathroom more. States a couple times have had a strong urge without urinary leaking. Patient Questionnaires Pelvic Pain and Urgency/Frequency Patient Symptom Scale Pelvic Pain Score 3 PT-OP-I Pelvic Floor Start: 04/27/23 18:02 Freq: Status: Active Protocol: Document 07/20/23 09:57 LRN (Rec: 07/20/23 10:52 LRN [id number]) Pelvic Floor Assessment Urine Other Urinary Symptoms No dribbling after urination PT-OP-J Posture/Palpation/Skin Start: 04/27/23 18:02 Freq: Status: Active Protocol: Document 05/08/23 07:32 LRN (Rec: 05/08/23 08:20 LRN [id number]) Posture Evaluation Position Standing Head/C-Spine Posture Neutral Position Hip Posture (L) Externally Rotated,(R) Externally Rotated Comments Posture Comments Scoliosis of spine with upper apex R, lower apex L. Sway back. PT-OP-K Range of Motion Start: 04/27/23 18:02 Freq: Status: Active Protocol: Document 07/27/23 10:01 LRN (Rec: 07/27/23 10:48 LRN [id number]) Hip Goniometric Range of Motion Hip Right Passive Testing Position Supine Internal Rotation 35 External Rotation 65 Left Passive Testing Position Supine Internal Rotation 35 External Rotation 65 PT-OP-M Strength Start: 04/27/23 18:02 Freq: Status: Active Protocol: Document 05/08/23 07:32 LRN (Rec: 05/08/23 08:20 LRN [id number]) Trunk Strength Trunk Manual Muscle Testing Core Stabilization Lacks core stabilization with MMT of LE's Hip Strength Hip Manual Muscle Testing Right Extension (S1) 4+ Good+ External Rotation 3 Fair Comments Strength is 5/5 except as indicated above Left External Rotation 4 Good Comments Strength is 5/5 except as indicated above PT-OP-Q Treatments Start: 04/27/23 18:02 Freq: Status: Active Protocol: Document 07/27/23 10:01 LRN (Rec: 07/27/23 10:48 LRN [id number]) Therapeutic Exercises Prone Exercises Hip ext Prone Exercise Name R hip ext strengthening Side bilateral Reps/Minutes 15x each Comments Cuing for coordination Sidelying Exercises Clamsheel Sidelying Exercise Name Clamshell/TA/breathwork & working on coordinating breathwork for PF relax. Side bilateral Reps/Minutes 15x 2 each with rest between sets. Comments Cued exhale lift leg and inhale relax PF with mild push out Neuro Re-Education Treatment Coordination Activities Transfers w/breath/Kegel Details Transfers w/breath/Kegel/PF relaxation: Sup<>sit<>stand Reps/Duration 3' Self-Care/Home Management Treatment Education Other Education Discussed her bladder diary and frequency of voiding ( every 2-3 hrs), and routine of voiding before & after intercourse. Pt notes no UI with strong urge. Discussed at length pt's HEP and precautions of over strengthening or over stretching her PF and discussed symptoms to look for and what she could do with each symptom onset. Assured pt that if changes arise that she couldn't correct for than she could return to therapy with new referral. PT-OP-T Assessment and Plan Start: 04/27/23 18:02 Freq: Status: Active Protocol: Document 07/27/23 10:01 LRN (Rec: 07/27/23 10:48 LRN [id number]) Physical Therapy Assessment Goals Four Impairment Urge urinary incontinence Short Term Goal (STG) Pt will be educated in urge deference technique. 07/13/23: Reviewed. STG Duration 02 wks-05/18/23 (05/17/23: MET GOAL) Diabetes Trainer Goal (LTG) Pt will be able to maintain urinary continence in the presence of a strong urge. 07/13/23: 50% of time able to maintain continence 07/27/23: Pt able to maintain urinary continence with strong urge x 2 this past week . LTG Duration 12 wks-07/06/23 (07/27/23: MET GOAL) Three Impairment Incomplete emptying of bladder with frequent UTI's. Impairment wgt 127# Short Term Goal (STG) Improve posture and abdominal soft tissue mobility to improve ability to empty bladder completely. 07/13/23: Pt educated in proper sitting posture for voiding. 07/20/23: Pt able have 3.25 hrs between voiding x 1; therefore pt feels she is empthing bladder more. 07/27/23: Pt feels she is emptying her bladder and demonstrates improved posture and is able to properly deep breathe with relaxation of her abdominal muscles. STG Duration 06 wks-06/19/23 (07/27/23: MET GOAL) Assisted Goal (LTG) Pt educated in fluid and core pressure management No urinary leakage and no dribbling. 07/20/23: Pt educated and able to demonstrate fluid & core pressure management during transfer. Pt is having no dribbling. Urinary leakage with strong urge. 07/27/23: Pt educate in core pressure managment with transfers. No urinary leakage with a strong urge. LTG Duration 12 wks-07/06/23 (07/27/23: MET GOAL) Two Impairment Poor coordination of PF contraction with use of substitue ms during Kegel Impairment Poor coordination of PF contractions with bulging of PF while performing a Kegel. Short Term Goal (STG) Improve awareness of proper coordination of PF ms to prevent bulging of PF on contraction. 05/17/23: Initiated training with Kegels. 06/11/23: Palp at external perineum would indicate that the pt feels like she is drawing the PF up and inward with a Kegel. 07/13/23: Pt able to perform a properly coordinated PF contraction. STG Duration wks-06/19/23 (07/13/23: MET GOAL) Diabetes Trainer Goal (LTG) Pt will be educated in core pressure management and decrease urinary dribbling after urination. 06/04/23: Initiated education on core pressure management with sit<>stands. 06/11/23: Core pressure mgmt exer for sit<>sup, and review of sit<>stand. 07/20/23: Pt educated and able to demonstrate fluid & core pressure management during transfer. Pt is having no dribbling. LTG Duration 12 wks-07/06/23 (07/20/23: MET GOAL) One Impairment Pt lacks an independent self care HEP. Short Term Goal (STG) Pt educated in proper transfers to lessen core abdominal pressure. 06/04/23: Initiated education on core pressure management with sit<>stands. 06/11/23: Core pressure mgmt exer for sit<>sup, and review of sit<>stand. STG Duration 02 wks-05/18/23 (06/11/23: MET GOAL) Assisted Goal (LTG) Pt will be independent in a self care HEP for PF strengthening. 05/16/23: Kegels Quick & Long Holds. 06/04/23: Kegels in isolation of PF muscles. 06/25/23: HEP: Kegel with hip ER (sup & sit), I/S for Kegel w/Hip strengthening of: ER (clamshell), ext in sup, stand and stand bent over. 07/27/23: Pt educate in core pressure managment with transfers. LTG Duration 12 wks-07/06/23 (07/27/23: MET GOAL) Assessment Summary Assessment Pt is a 67 yo female who initially presented with urge urinary incontinence and poor coordination of her PF while performing a Kegel, with bulging on contraction. Since 07/13/23 she is no longer bulging with PF contractions. Pt is improving in her time between voids to every 2-3 hrs . She has been able to maintain continence with an urge x 2 and demonstrates today equal hip rotation mobility, bilaterally. Strength of her hip extensors and ER's have improved to normal. PUF score improved from 7 to 3. The pt has met her goals and is now ready to be placed on her HEP. Physical Therapy Plan Frequency and Duration Frequency of Treatment 1x/Week Duration of treatment (weeks) 4 Plan of Care Start Date 07/13/23 Plan of Care End Date 09/07/23 Discharge Physical Therapy Discharge Comments The pt has done very well with physical therapy. Thank you for your referral.
== END 2023-08-02 08:06 | disposition home or self-care (01) ==
LOC: PHYS 09:45
PROVIDERS: Family Provider Internal Medicine; PCP Internal Medicine; Referring Provider Urology; Visit Provider Urology
DX: R35.0 Frequency of micturition (principal); N39.41 Urge incontinence; N39.43 Post-void dribbling; M62.81 Muscle weakness (generalized)
CPT/HCPCS: 97110; 97112; 97140; 97535

== ENCOUNTER → 2023-08-06 15:27 | Outpatient (CLI) | payer OTHER, SELFPAY ==
[2023-08-06 17:06] LABS: Aspartate Aminotransferase 29 IU/L (14-36); BUN Creatinine Ratio 24.7 (6-22); Blood Urea Nitrogen 18 mg/dL (7-17); Calcium 8.6 mg/dL (8.4-10.2); Carbon Dioxide 33 mmol/L (22-32); Chloride 102 mmol/L (98-107); Cholesterol 113 mg/dL (140-199); Estimated Glomerular Filt Rate > 60 mL/min (>60); Glucose 94 mg/dL (80-110); HDL Cholesterol 55 mg/dL (40-60); HEMOLYSIS < 15 (0-50); LDL Cholesterol Calculated 44 mg/dL (<100); Potassium 3.6 mmol/L (3.4-5.1); Sodium 136 mmol/L (137-145); Triglycerides 71 mg/dL (35-150)
[2023-08-06 17:36] LABS: TSH w/ Reflex to FT4 0.49 uIU/mL (0.47-4.68)
== END ==
PROVIDERS: Family Provider Internal Medicine; PCP Internal Medicine; Referring Provider Internal Medicine; Visit Provider Internal Medicine
DX: E78.2 Mixed hyperlipidemia (principal); E03.9 Hypothyroidism, unspecified; I10 Essential (primary) hypertension
CPT/HCPCS: 36415; 80048; 80061; 84443; 84450

== ENCOUNTER → 2023-09-06 19:04 | Outpatient (ROUT) | payer OTHER, SELFPAY | PROVIDERS: Family Provider Internal Medicine; PCP Internal Medicine; Visit Provider Dermatology | DX: L02.426 Furuncle of left lower limb (principal); L57.8 Other skin changes due to chronic exposure to nonionizing radiation; X32.XXXA Exposure to sunlight, initial encounter | CPT/HCPCS: 87070; 87075; 87205 ==

== ENCOUNTER → 2023-10-31 09:39 | Outpatient (CLI) | payer OTHER, SELFPAY | PROVIDERS: Family Provider Internal Medicine; PCP Internal Medicine; Visit Provider Internal Medicine | DX: R30.0 Dysuria (principal) | CPT/HCPCS: 87086 ==

== ENCOUNTER → 2023-12-06 14:08 | Outpatient (CLI) | payer OTHER, SELFPAY ==
--- NOTE | 2023-12-06 14:10 | DI.MG.S_ITS ---
BILATERAL DIGITAL SCREENING MAMMOGRAM 3D/2D WITH CAD: 12/06/2023 CLINICAL: Routine screening. Comparison is made to exams dated: 11/20/2022 mammogram, 09/28/2021 mammogram - Outside facility, and 09/23/2020 mammogram - [facility]. Both breasts are heterogeneously dense, which may obscure small masses (category c / 51-75% glandular tissue). Current study was also evaluated with a Computer Aided Detection (CAD) system. No significant masses, calcifications, or other findings are seen in either breast. There has been no significant interval change. IMPRESSION: NEGATIVE There is no mammographic evidence of malignancy. A 1 year screening mammogram is recommended. Based on the Tyrer Cuzick model (a risk assessment model) the patient's lifetime risk is 7.9% and her 10 year risk is 4.4%. According to the ACR, ACS, and NCCN guidelines, an annual breast MRI exam along with mammogram is recommended if the patient's lifetime risk is 20% or greater. This exam was interpreted at Station ID: [id number]. NOTE: For mammograms, a report in lay terms will be sent to the patient. Approximately 15% of breast malignancies will not be visualized mammographically. In the management of a palpable breast mass, a negative mammogram must not discourage biopsy of a clinically suspicious lesion. Electronically Signed By: Nathanael vu/james:12/06/2023 15:15:59 letter sent: Normal Exam ACR BI-RADS Category 1: Negative [id number]
== END ==
LOC: MAMMO 14:09
PROVIDERS: Family Provider Internal Medicine; PCP Internal Medicine; Referring Provider Internal Medicine; Visit Provider Internal Medicine
DX: Z12.31 Encounter for screening mammogram for malignant neoplasm of breast (principal); R92.333 Mammographic heterogeneous density, bilateral breasts
CPT/HCPCS: 77063; 77067

== ENCOUNTER → 2024-05-17 10:01 | Outpatient (CLI) | payer MEDICARE, SELFPAY ==
--- NOTE | 2024-05-17 10:04 | DI.RAD.S_ITS ---
PROCEDURE: XR ANKLE RT MIN 3V INDICATIONS: Right ankle pain TECHNIQUE: 3 views of the ankle were acquired. COMPARISON: [facility], CR, XR ANKLE RT MIN 3V, 05/20/2021, 15:58. FINDINGS: Bones: No fractures or dislocations. First metatarsal instrumentation is partially visualized. Corticated ossicles adjacent to the medial malleolus, consistent with prior injury. Ankle mortise is normally aligned. No suspicious bony lesions. Soft tissues: No tibiotalar joint effusion. Achilles tendon appears normal. IMPRESSION: No acute osseous abnormality. If pain persists with conservative management, consider repeat x-ray in 10-14 days or cross-sectional imaging. Dictated by: Sg Villar M.D. on 05/17/2024 at 10:27 Approved by: Sg Villar M.D. on 05/17/2024 at 10:28
== END ==
PROVIDERS: Family Provider Internal Medicine; PCP Internal Medicine; Referring Provider Physician Assistant Medical; Visit Provider Physician Assistant Medical
DX: M25.571 Pain in right ankle and joints of right foot (principal)
CPT/HCPCS: 73610

== ENCOUNTER → 2024-06-02 09:38 | Outpatient (CLI) | payer MEDICARE, SELFPAY ==
[2024-06-02 11:04] LABS: Vitamin D 25 Hydroxy (D3) 45.6 ng/mL (30.0-100.0)
[2024-06-02 11:18] LABS: TSH w/ Reflex to FT4 0.36 uIU/mL (0.47-4.68)
[2024-06-02 12:12] LABS: Free T4, Direct Thyroxine 1.51 ng/dL (0.78-2.19)
[2024-06-04 01:07] LABS: Calcium 8.5 mg/dL (8.7-10.3); Parathyroid Hormone, Intact 21 pg/mL (15-65)
== END ==
PROVIDERS: Family Provider Internal Medicine; PCP Internal Medicine; Referring Provider Internal Medicine; Visit Provider Internal Medicine
DX: E20.9 Hypoparathyroidism, unspecified (principal)
CPT/HCPCS: 36415; 82306; 82310; 83970; 84439; 84443

== ENCOUNTER → 2024-07-09 09:53 | Outpatient (CLI) | payer MEDICARE, SELFPAY | PROVIDERS: Family Provider Internal Medicine; PCP Internal Medicine; Visit Provider Physician Assistant | DX: K57.30 Diverticulosis of large intestine without perforation or abscess without bleeding (principal); R31.9 Hematuria, unspecified | CPT/HCPCS: 87086 ==

== ENCOUNTER 2024-07-09 21:45 | Emergency (ER) | payer MEDICARE, SELFPAY ==
[2024-07-09 21:50] VITALS: BP 154/68; PULSE 93; RESP 18; TEMP 36.9; O2SAT 98; BMI 22.3
--- NOTE | 2024-07-09 22:02 | DI.CT.S_ITS ---
PROCEDURE: CT ABDOMEN PELVIS W CON INDICATIONS: Left lower abdomen pain history diverticulitis TECHNIQUE: After the administration of intravenous contrast, axial sections acquired from the lung bases to the pubic symphysis. Coronal and sagittal reformats were performed. For radiation dose reduction, the following was used: automated exposure control, adjustment of mA and/or kV according to patient size. COMPARISON: None. FINDINGS: Image quality: Diagnostic. Lower Chest: No significant findings. ABDOMEN: Liver: No solid mass. Subcentimeter hypodensities are too small to characterize by CT. Gallbladder: No radiopaque gallstones or wall thickening. Biliary ducts: No biliary dilation. Pancreas: No ductal dilation. Spleen: Size is within normal limits. Adrenal Glands: No adrenal nodules. Kidneys and Ureters: No hydronephrosis. No solid mass. No complex renal cystic lesion which requires follow up. Stomach and Bowel: No small bowel obstruction inflammatory changes adjacent to the distal sigmoid colon consistent with diverticulitis. No rim enhancing fluid collection to suggest abscess. Query a few foci of gas which may be extraluminal, for example series 2, image 95. . Stool seen throughout the colon. Peritoneum: No abnormal intraperitoneal fluid. No free air. Ventral Wall: No significant ventral hernia. Abdominal Nodes: No retroperitoneal or mesenteric adenopathy by size criteria. Vessels: Aorta and inferior vena cava are normal in size. PELVIS: Pelvic Organs: Unremarkable. Bladder: No bladder wall thickening, accounting for underdistention. Pelvic Nodes: No enlarged lymph nodes. Miscellaneous: No inguinal hernias are seen. Bones: No aggressive osseous abnormality. IMPRESSION: Acute sigmoid diverticulitis. Query a few tiny foci of extraluminal gas, which may represent small micro perforation. No organized or rim enhancing fluid collection to suggest abscess. Approved by: Dacia Jung M.D.,Ph.D. on 07/10/2024 at 0:22
[2024-07-09 22:19] LABS: Add Manual Diff / Slide Review NO; Basophils Absolute Auto 100 /uL (0-100); Basophils Percent Auto 0.9 % (0-2); Eosinophils Absolute Auto 100 /uL (0-450); Hematocrit 43.4 % (36-46); Hemoglobin 14.9 g/dL (12.0-16.0); Lymphocytes Absolute Auto 700 /uL (1100-4500); Lymphocytes Percent Auto 7.7 % (25-40); Mean Corpuscular HGB Conc 34.4 % (30-36); Mean Corpuscular Hemoglobin 32.7 PG (26-34); Mean Corpuscular Volume 95.2 fL (80-100); Monocytes Absolute Auto 800 /uL (0-900); Monocytes Percent Auto 8.5 % (3-14); Neutrophils Absolute Auto 7400 /uL (1500-7000); Neutrophils Percent Auto 81.9 % (50-75); Platelet Count 239 X10^3/uL (150-400); Red Blood Cell Count 4.56 X10^6/uL (4.0-5.2); Red Cell Distribution Width 13.1 % (11.6-14.8)
[2024-07-09 22:27] LABS: Alanine Aminotransferase 27 IU/L (<35); Albumin 4.2 g/dL (3.5-5.0); Albumin Globulin Ratio 1.3 (1.0-2.8); Alkaline Phosphatase 68 U/L (38-126); Aspartate Aminotransferase 29 IU/L (14-36); BUN Creatinine Ratio 17.6 (6-22); Bilirubin Total 0.6 mg/dL (0.2-1.3); Blood Urea Nitrogen 12 mg/dL (7-17); Calcium 8.8 mg/dL (8.4-10.2); Carbon Dioxide 31 mmol/L (22-32); Chloride 97 mmol/L (98-107); Estimated Glomerular Filt Rate > 60 mL/min (>60); Globulin 3.2 g/dL (1.7-4.1); Glucose 126 mg/dL (80-110); HEMOLYSIS < 15 (0-50); Lipase 48 U/L (23-300); Magnesium 1.9 mg/dL (1.6-2.3); Sodium 135 mmol/L (137-145); Total Protein 7.4 g/dL (6.3-8.2)
[2024-07-09 22:28] LABS: Lactate (Lactic Acid) 1.2 mmol/L (0.7-2.1)
[2024-07-09] MEDS: SODIUM CHLORIDE 0.9% 1,000 ML 1000 ML IV (22:32)
[2024-07-09 22:48] VITALS: PULSE 78; RESP 17; O2SAT 99
[2024-07-09 23:00] VITALS: PULSE 79; RESP 15; O2SAT 99
--- NOTE | 2024-07-09 23:03 | PC.NURSE ---
Patient in minimal pain with not nausea. Will hold giving meds until needed
[2024-07-09 23:15] VITALS: BP 182/77; PULSE 85; RESP 16; O2SAT 99
[2024-07-09 23:30] VITALS: BP 164/62; PULSE 79; RESP 17; O2SAT 99
[2024-07-10] VITALS: BP 153/67; PULSE 78; RESP 29; O2SAT 98
--- NOTE | 2024-07-10 00:03 | ED.ABDPAIN ---
HPI - Abdominal Pain General Chief Complaint: Abdominal Pain Stated Complaint: diverticulitis,chills, fever sent by Dr Lo Time Seen by Provider: 07/09/24 22:02 Source: patient Mode of arrival: Ambulatory History of Present Illness HPI narrative: 69-year-old female with a past medical history hyperlipidemia, hypertension, hypothyroidism, diverticulitis comes into the ED from home for evaluation of abdominal pain. Patient states that she went to her primary care doctor's office today for her abdominal pain nausea vomiting was diagnosed symptomatically with diverticulitis was given antibiotics however patient states that she is having progressive symptoms and therefore decided come into the ED for further evaluation treatment. Patient states that at her primary care doctor's office visit today she had urine test that did not show any signs of acute urinary tract infection. She denies any other symptoms such as headache visual disturbances chills or any other GI/ symptoms at this time. Related Data Home Medications Medication Instructions Recorded Confirmed L. acidophilus/Bifid. animalis 1 tab PO DAILY 01/03/23 07/09/24 [Daily Probiotic] dextrin [Fiber (dextrin)] 1 tsp PO DAILY 01/03/23 07/09/24 cholecalciferol (vitamin D3) 50 50 mcg PO DAILY 07/09/24 07/09/24 mcg (2,000 unit) capsule coenzyme Q10 200 mg capsule 200 mg PO DAILY 07/09/24 07/09/24 d-mannose 500 mg capsule mg PO BID 07/09/24 07/09/24 iodine (kelp) 1,000 mcg PO .QOD 07/09/24 07/09/24 magnesium glycinate 1 tab PO BID 07/09/24 07/09/24 omega-3 fatty acids 2,000 mg PO DAILY 07/09/24 07/09/24 phytonadione (vitamin K1) 100 mcg 100 mcg PO DAILY 07/09/24 07/09/24 tablet Previous Rx's Medication Instructions Recorded duloxetine 60 mg capsule,delayed 60 mg PO DAILY #90 caps 08/06/23 release ezetimibe 10 mg tablet 10 mg PO DAILY #90 tabs 08/06/23 rosuvastatin 40 mg tablet 40 mg PO DAILY #90 tabs 09/19/23 irbesartan 75 mg tablet 75 mg PO DAILY #90 tabs 09/24/23 levothyroxine 100 mcg tablet 100 mcg PO DAILY #90 tabs 10/17/23 estradiol 0.01% (0.1 mg/gram) 1 g vaginal 2XW #42.5 grams 04/10/24 vaginal cream diclofenac sodium 1 % topical gel 4 g topical QID PRN joint pain 05/12/24 #100 grams amoxicillin 875 mg-potassium 1 tab PO Q8H 7 days #21 tabs 07/09/24 clavulanate 125 mg tablet Allergies Allergy/AdvReac Type Severity Reaction Status Date / Time phenylephrine AdvReac Mild Hypertensio Verified 07/09/24 09:08 n Review of Systems Review of Systems Narrative: General: Denies fever, chills, weight loss HEENT: Denies headache, eye drainage, eye irritation, head trauma, sore throat, voice change Cardiovascular: Denies any chest pain, palpitations, tachycardia Respiratory: Denies any shortness of breath, cough, wheeze, stridor GI/: Positive abdominal pain, nausea, denies vomiting, diarrhea, bright red blood per rectum, melanotic stools, urinary frequency, urinary retention, dysuria, hematuria MSK: Denies any joint pain, muscle pains, swelling Skin: Denies any rashes, lesions, discoloration Neuro: Denies any headache, lightheadedness, dizziness, fainting, weakness Psych: Denies SI/HI Patient History Medical History (Updated 07/10/24 @ 01:36 by Xavier Mccracken DO) Venous (peripheral) insufficiency Chronic low back pain Hx of papillary thyroid carcinoma Urinary incontinence Menopausal syndrome Recurrent UTI Degenerative arthritis of toe joint Fibromyalgia Generalized anxiety disorder Diverticular disease of colon (~2005) Acquired hypothyroidism Mixed hyperlipidemia Essential hypertension Degenerative joint disease of left ankle Surgical History Status post total right knee replacement (09/10/17) Status post nasal septoplasty (04/04/17) Status post thyroidectomy (~03/1994) Status post foot surgery Social History household members: spouse Smoking Status: Never smoker alcohol intake: never Smoking Status: Never smoker Exam Narrative Exam Narrative: General: Cooperative, comfortable, well-developed, not in acute distress HEENT: Normocephalic, atraumatic, PERRLA, normal sclera, eyelids normal, Neck: Active full range of motion, atraumatic Chest: Normal to inspection, negative crepitus, no overlying erythema ecchymosis Respiratory: Normal respiratory effort, not in acute respiratory distress, clear to auscultation bilaterally negative cough, wheeze, tachypnea, rhonchi, rales Cardiology: Regular rate rhythm negative gallop, murmur, rubs GI/: Normal to inspection, soft, nonrigid, no tenderness to palpation, exam deferred MSK: Full range of active range of motion of all 4 extremities, atraumatic Skin: No rashes lesions noted Neuro: Alert awake oriented x3, moves all 4 extremities spontaneously, cranial nerves intact, able to answer all questions appropriately follows commands appropriately Psych: Cooperative, negative suicidal or homicidal ideations Initial Vital Signs Initial Vital Signs: Vital Signs Temperature 98.5 F 07/09/24 21:50 Pulse Rate 93 H 07/09/24 21:50 Respiratory Rate 18 07/09/24 21:50 Blood Pressure 154/68 H 07/09/24 21:50 Pulse Oximetry 98 07/09/24 21:50 Oxygen Delivery Method Room Air 07/09/24 21:50 Course Orders Ordered: ED Orders 07/09/24 22:02 CT abdomen pelvis w con Stat 07/09/24 22:09 Complete Blood Count AUTO DIFF Stat Comprehensive Metabolic Panel Stat Lactate (Lactic Acid) Stat Lipase Stat MAG [Magnesium] Stat 07/10/24 00:45 Urine Microscopic Stat Discontinued Medications Sodium Chloride (Normal Saline 0.9%) 1,000 mls @ 1,000 mls/hr IV BOLUS ONE Stop: 07/09/24 23:01 Last Admin: 07/09/24 22:32 Dose: 1,000 mls/hr Documented By: Piperacillin Sod/Tazobactam (Sod 4.5 gm/ Sodium Chloride) 100 mls @ 200 mls/hr IV NOW ONE Stop: 07/10/24 00:45 Last Admin: 07/10/24 01:01 Dose: 200 mls/hr Documented By: MR Morphine Sulfate (Morphine 4 Mg/Ml Inj) 4 mg IV NOW ONE Stop: 07/09/24 22:03 Last Admin: 07/10/24 00:46 Dose: 4 mg Documented By: MR Ondansetron HCl (Ondansetron 4 Mg/2 Ml Inj) 4 mg IV NOW ONE Stop: 07/09/24 22:03 Last Admin: 07/10/24 00:47 Dose: 4 mg Documented By: MR Vital Signs Vital signs: Vital Signs - 8 hr 07/09/24 21:50 07/09/24 22:48 07/09/24 23:00 Temperature 98.5 F Pulse Rate 93 H 78 79 Respiratory Rate 18 17 15 Blood Pressure 154/68 H Pulse Oximetry 98 99 99 Oxygen Delivery Method Room Air 07/09/24 23:15 07/09/24 23:15 07/09/24 23:30 Temperature Pulse Rate 85 79 Respiratory Rate 16 17 Blood Pressure 182/77 H Pulse Oximetry 99 99 Oxygen Delivery Method 07/09/24 23:30 07/10/24 00:00 07/10/24 00:00 Temperature Pulse Rate 78 Respiratory Rate 29 H Blood Pressure 164/62 H 153/67 H Pulse Oximetry 98 Oxygen Delivery Method 07/10/24 00:30 07/10/24 00:30 07/10/24 00:44 Temperature Pulse Rate 80 80 Respiratory Rate 15 20 Blood Pressure 138/63 Pulse Oximetry 98 99 Oxygen Delivery Method 07/10/24 00:44 Temperature Pulse Rate Respiratory Rate Blood Pressure 167/71 H Pulse Oximetry Oxygen Delivery Method MDM - Abdominal Pain Differential Diagnosis Differential diagnosis: Likely abdominal pain, acute appendicitis, diverticulitis, gastroenteritis and small bowel obstruction Lab Data 07/09/24 22:09 07/09/24 22:09 Labs: Lab Results 07/09/24 07/10/24 Range/Units 22:09 00:45 WBC 9.0 (4.5-11.0) X10^3/uL RBC 4.56 (4.0-5.2) X10^6/uL Hgb 14.9 (12.0-16.0) g/dL Hct 43.4 (36-46) % MCV 95.2 (80-100) fL MCH 32.7 (26-34) PG MCHC 34.4 (30-36) % RDW 13.1 (11.6-14.8) % Plt Count 239 (150-400) X10^3/uL Neut % (Auto) 81.9 H (50-75) % Lymph % (Auto) 7.7 L (25-40) % [place] % (Auto) 8.5 (3-14) % Eos % (Auto) 1.0 L (2-4) % Baso % (Auto) 0.9 (0-2) % Neut # (Auto) 7400 H (3832-0768) /uL Lymph # (Auto) 700 L (9830-3347) /uL [place] # (Auto) 800 (0-900) /uL Eos # (Auto) 100 (0-450) /uL Baso # (Auto) 100 (0-100) /uL Sodium 135 L (137-145) mmol/L Potassium 4.0 (3.4-5.1) mmol/L Chloride 97 L (98-107) mmol/L Carbon Dioxide 31 (22-32) mmol/L BUN 12 (7-17) mg/dL Creatinine 0.68 (0.52-1.04) mg/dL Estimated GFR > 60 (>60) mL/min BUN/Creatinine Ratio 17.6 (6-22) Glucose 126 H (80-110) mg/dL Lactate 1.2 (0.7-2.1) mmol/L Calcium 8.8 (8.4-10.2) mg/dL Magnesium 1.9 (1.6-2.3) mg/dL Total Bilirubin 0.6 (0.2-1.3) mg/dL AST 29 (14-36) IU/L ALT 27 (<35) IU/L Alkaline Phosphatase 68 (38-126) U/L Total Protein 7.4 (6.3-8.2) g/dL Albumin 4.2 (3.5-5.0) g/dL Globulin 3.2 (1.7-4.1) g/dL Albumin/Globulin Ratio 1.3 (1.0-2.8) Lipase 48 (23-300) U/L Urine RBC 1-5/hpf (0-5/HPF) Urine WBC 0-1/hpf (0-5/HPF) Ur Squamous Epith Cells 1-5 /hpf (0-5/HPF) Urine Bacteria None seen (None) Ur Culture Indicated? Cult not indicated Vol Urine Centrifuged 10ml (spun) Point of care testing: Urine Dip Bedside Urine Glucose Negative Bedside Urine Bilirubin - Negative Bedside Urine Ketone - Negative Urine Specific [place] 1.005 Bedside Urine Occult Blood +/- Bedside Urine pH 7.0 Bedside Urine Protein - Negative Bedside Urine Urobilinogen - Negative Bedside Urine Nitrite - Negative Bedside Urine Leukocytes - Negative Esterase Imaging Data CT scan - abdomen/pelvis: Radiologist's Impression: [address] [address] [address] Scan Report Signed Patient: Emily Archuleta MR#: [id number] : 1955 Acct:[id number] Age/Sex: 69 / F Date of Service: 07/09/24 Loc: ED Accession Number: [id number] Procedure: CT abdomen pelvis w con Ordering Provider: Xavier Mccracken D.O. PROCEDURE: CT ABDOMEN PELVIS W CON INDICATIONS: Left lower abdomen pain history diverticulitis TECHNIQUE: After the administration of intravenous contrast, axial sections acquired from the lung bases to the pubic symphysis. Coronal and sagittal reformats were performed. For radiation dose reduction, the following was used: automated exposure control, adjustment of mA and/or kV according to patient size. COMPARISON: None. FINDINGS: Image quality: Diagnostic. Lower Chest: No significant findings. ABDOMEN: Liver: No solid mass. Subcentimeter hypodensities are too small to characterize by CT. Gallbladder: No radiopaque gallstones or wall thickening. Biliary ducts: No biliary dilation. Pancreas: No ductal dilation. Spleen: Size is within normal limits. Adrenal Glands: No adrenal nodules. Kidneys and Ureters: No hydronephrosis. No solid mass. No complex renal cystic lesion which requires follow up. Stomach and Bowel: No small bowel obstruction inflammatory changes adjacent to the distal sigmoid colon consistent with diverticulitis. No rim enhancing fluid collection to suggest abscess. Query a few foci of gas which may be extraluminal, for example series 2, image 95. . Stool seen throughout the colon. Peritoneum: No abnormal intraperitoneal fluid. No free air. Ventral Wall: No significant ventral hernia. Abdominal Nodes: No retroperitoneal or mesenteric adenopathy by size criteria. Vessels: Aorta and inferior vena cava are normal in size. PELVIS: Pelvic Organs: Unremarkable. Bladder: No bladder wall thickening, accounting for underdistention. Pelvic Nodes: No enlarged lymph nodes. Miscellaneous: No inguinal hernias are seen. Bones: No aggressive osseous abnormality. IMPRESSION: Acute sigmoid diverticulitis. Query a few tiny foci of extraluminal gas, which may represent small micro perforation. No organized or rim enhancing fluid collection to suggest abscess. MDM Narrative Medical decision making narrative: 69-year-old female with a past medical history of hypertension hyperlipidemia hypothyroidism diverticulitis comes into the ED from home for evaluation of left lower quadrant abdominal pain, she states that this started a few days ago, states that she did see her primary care doctor was started on Augmentin today. She states that symptoms progress therefore decided come into the ED for further evaluation treatment. Here patient abdominal exam non peritoneal nature very mild tenderness to palpation of lower abdomen, urinalysis that was performed at her primary care doctor's office without any signs of urinary tract infection, patient without any leukocytosis, otherwise Chem panel unremarkable, she has not meeting any sepsis sirs criteria, CT scan does show acute sigmoid diverticulitis with query a few tiny foci of extraluminal gas which may represent small microperforation however there is no organized or rim enhancing fluid collection to suggest abscess, no other acute findings, had a discussion with general surgery Dr. Rojo who states that as long as patient able to tolerate pain p.o. antibiotics would be candidate for outpatient oral antibiotic treatment. 0043: Had discussion with Dr. Vidal, of General surgery, he agrees that given patient not meeting any sepsis sirs criteria and CT scan only showing questionable microperforation and exam non peritoneal in nature patient is good candidate to trial oral antibiotics and outpatient treatment. We will give dose of IV antibiotics here, we will give symptomatic relief and re-evaluate patient for possible discharge. This plan was discussed with the patient she understands and agrees with it 0135: Patient re-evaluated no new complaints at this time, symptoms completely resolved after administration of pain medication here, patient feels comfortable and agreeable to trial outpatient treatment, she will be sent home with Sd Baxter, and told to continue her Augmentin that was already previously prescribed to her by her primary care doctor, she was given strict return precautions she verbalized understanding of this and agrees to being discharged home with outpatient follow up Discharge Plan Departure Patient Disposition: Home Clinical Impression: Diverticulitis of sigmoid colon Instructions: DI for Diverticulitis Activity Restrictions/Additional Instructions: Please follow up with the primary care doctor and GI Please read the discharge instructions sheet carefully and bring all papers to all doctor follow-up visits, as it may contain information that your doctor may want to see. Disease processes change and evolve, if your symptoms worsen or if you develop any new symptoms that are concerning to you please return for evaluation. Your evaluation today does not show any evidence of any life-threatening/serious illnesses requiring admission to the hospital or surgery. Please follow-up with your doctor for re-evaluation in approximately 1 day. Seek immediate medical attention for any worrisome symptoms. *If you do not have a primary care provider please contact the [facility] Resource line at [phone]. They will ask some questions about your medical history and help get you set up with a doctor in the community. Prescriptions: No Action rosuvastatin 40 mg tablet 40 mg PO DAILY Qty: 90 3RF irbesartan 75 mg tablet 75 mg PO DAILY Qty: 90 3RF levothyroxine 100 mcg tablet 100 mcg PO DAILY Qty: 90 3RF estradiol 0.01 % (0.1 mg/gram) cream 1 g vaginal 2XW Qty: 42.5 3RF diclofenac sodium 1 % gel 4 g topical QID PRN (Reason: joint pain) Qty: 100 0RF Rx Instructions: apply to single elbow, wrist or hand; for hand includes palm/fingers/back of hand amoxicillin-pot clavulanate 875-125 mg tablet 1 tab PO Q8H 7 Days Qty: 21 0RF L. acidophilus/Bifid. animalis [Daily Probiotic] 1 tab PO DAILY dextrin [Fiber (dextrin)] 1 tsp PO DAILY duloxetine 60 mg capsule,delayed release(DR/EC) 60 mg PO DAILY Qty: 90 3RF ezetimibe 10 mg tablet 10 mg PO DAILY Qty: 90 3RF d-mannose 500 mg capsule PO BID magnesium glycinate 1 tab PO BID omega-3 fatty acids Capsule 2,000 mg PO DAILY coenzyme Q10 200 mg capsule 200 mg PO DAILY iodine (kelp) 1,000 mcg PO .QOD phytonadione (vitamin K1) 100 mcg tablet 100 mcg PO DAILY cholecalciferol (vitamin D3) 50 mcg (2,000 unit) capsule 50 mcg PO DAILY Referrals: Juancarlos Lo MD [Primary Care Provider] - Stand Alone Forms: Patient Portal/API/Survey
[2024-07-10 00:30] VITALS: BP 138/63; PULSE 80; RESP 15; O2SAT 98
[2024-07-10 00:44] VITALS: BP 167/71; PULSE 80; RESP 20; O2SAT 99
[2024-07-10] MEDS: MORPHINE 4 MG/ML INJ IV (00:46)
[2024-07-10] MEDS: ONDANSETRON 4 MG/2 ML INJ IV (00:47)
[2024-07-10 01:00] VITALS: PULSE 82; RESP 14; O2SAT 93
[2024-07-10 01:01] VITALS: BP 120/57; PULSE 82; RESP 17; O2SAT 93
[2024-07-10] MEDS: PIPERACILLIN/TAZO 4.5 GM in SODIUM CHLORIDE 0.9% 100 ML IV (01:01)
[2024-07-10 01:02] LABS: Bacteria Urine None Seen; Urine Volume 10mL (spun); WBC Urine 0-1/HPF (0-5/HPF)
[2024-07-10 01:03] LABS: Culture Indicated Urine Cult Not Indicated; RBC Urine 1-5/HPF (0-5/HPF); Squamous Epithelial Cell Urine 1-5 /HPF (0-5/HPF)
[2024-07-10 01:30] VITALS: BP 113/54; PULSE 81; RESP 18; O2SAT 92
[2024-07-10] MEDS: OXYCODONE/APAP 5/325 PREPACK 1 BOTTLE MISC (01:46)
[2024-07-10] MEDS: ONDANSETRON 4 MG ODT PREPACK 1 BOTTLE MISC (01:46)
== END 2024-07-10 01:52 | disposition home or self-care (01) ==
PROVIDERS: Emergency Provider Student in an Organized Health Care Education/Training Program; Family Provider Internal Medicine; PCP Internal Medicine
DX: K57.32 Diverticulitis of large intestine without perforation or abscess without bleeding (principal); R31.9 Hematuria, unspecified
CPT/HCPCS: 36415; 74177; 80053; 81003; 81015; 83605; 83690; 83735; 85025; 87077; 87086; 87186; 96361; 96365; 96375; 99284; J2270; J2405; J2543; Q9967

== ENCOUNTER → 2024-07-15 11:01 | Outpatient (CLI) | payer MEDICARE, SELFPAY ==
[2024-07-15 12:06] LABS: Add Manual Diff / Slide Review NO; Basophils Absolute Auto 100 /uL (0-100); Basophils Percent Auto 1.1 % (0-2); Eosinophils Absolute Auto 200 /uL (0-450); Eosinophils Percent Auto 3.1 % (2-4); Hemoglobin 14.4 g/dL (12.0-16.0); Lymphocytes Absolute Auto 1000 /uL (1100-4500); Lymphocytes Percent Auto 19.5 % (25-40); Mean Corpuscular HGB Conc 34.3 % (30-36); Mean Corpuscular Hemoglobin 32.8 PG (26-34); Mean Corpuscular Volume 95.7 fL (80-100); Monocytes Absolute Auto 500 /uL (0-900); Monocytes Percent Auto 9.8 % (3-14); Neutrophils Absolute Auto 3300 /uL (1500-7000); Neutrophils Percent Auto 66.5 % (50-75); Platelet Count 272 X10^3/uL (150-400); Red Blood Cell Count 4.39 X10^6/uL (4.0-5.2); Red Cell Distribution Width 12.7 % (11.6-14.8); White Blood Cell Count 4.9 X10^3/uL (4.5-11.0)
[2024-07-15 12:48] LABS: Alanine Aminotransferase 22 IU/L (<35); Albumin 4.1 g/dL (3.5-5.0); Albumin Globulin Ratio 1.6 (1.0-2.8); Alkaline Phosphatase 62 U/L (38-126); Aspartate Aminotransferase 27 IU/L (14-36); BUN Creatinine Ratio 13.2 (6-22); Bilirubin Total 0.6 mg/dL (0.2-1.3); Blood Urea Nitrogen 9 mg/dL (7-17); Calcium 8.5 mg/dL (8.4-10.2); Carbon Dioxide 31 mmol/L (22-32); Chloride 98 mmol/L (98-107); Estimated Glomerular Filt Rate > 60 mL/min (>60); Globulin 2.6 g/dL (1.7-4.1); Glucose 78 mg/dL (80-110); HEMOLYSIS < 15 (0-50); Potassium 4.4 mmol/L (3.4-5.1); Sodium 137 mmol/L (137-145); Total Protein 6.7 g/dL (6.3-8.2)
== END ==
PROVIDERS: Family Provider Internal Medicine; PCP Internal Medicine; Referring Provider Internal Medicine; Visit Provider Internal Medicine
DX: K57.32 Diverticulitis of large intestine without perforation or abscess without bleeding (principal)
CPT/HCPCS: 36415; 80053; 85025

== ENCOUNTER 2024-07-22 17:08 | Emergency (ER) | payer MEDICARE, SELFPAY ==
[2024-07-22] VITALS (13 sets, daily range): BP systolic 138–201; BP diastolic 65–115; PULSE 64–76; RESP 16–18; TEMP 36.3; O2SAT 95–99; BMI 21.4
--- NOTE | 2024-07-22 21:19 | ED_ITS ---
HPI - Recheck/Abnormal Lab/Rx General Chief Complaint: Recheck/Abnormal Lab/Rx Stated Complaint: wants to be checked out Time Seen by Provider: 07/22/24 18:26 Source: patient Mode of arrival: Ambulatory History of Present Illness HPI narrative: 69-year-old female with a past medical history of hypothyroidism fibromyalgia hypertension hyperlipidemia comes in for feeling ?off. She states that she has recently been changed off on multiple medications for her diverticulitis, states that she was on Flagyl, taken off of it and then restarted on it, she states that she is currently on Flagyl as well as Augmentin for this. She states that since then she has had feeling weakness, decreased appetite. States that she has not having any true actual abdominal pain, she states that she wants to be ?checked out for his symptoms. However she denies any actual chest pain shortness breath fever chills nausea vomiting abdominal pain or any other GI/ symptoms time. Related Data Home Medications Medication Instructions Recorded Confirmed L. acidophilus/Bifid. animalis 1 tab PO DAILY 01/03/23 07/09/24 [Daily Probiotic] dextrin [Fiber (dextrin)] 1 tsp PO DAILY 01/03/23 07/15/24 cholecalciferol (vitamin D3) 50 50 mcg PO DAILY 07/09/24 07/15/24 mcg (2,000 unit) capsule coenzyme Q10 200 mg capsule 200 mg PO DAILY 07/09/24 07/15/24 d-mannose 500 mg capsule mg PO BID 07/09/24 07/15/24 iodine (kelp) 1,000 mcg PO .QOD 07/09/24 07/15/24 magnesium glycinate 1 tab PO BID 07/09/24 07/15/24 omega-3 fatty acids 2,000 mg PO DAILY 07/09/24 07/15/24 phytonadione (vitamin K1) 100 mcg 100 mcg PO DAILY 07/09/24 07/15/24 tablet Previous Rx's Medication Instructions Recorded duloxetine 60 mg capsule,delayed 60 mg PO DAILY #90 caps 08/06/23 release ezetimibe 10 mg tablet 10 mg PO DAILY #90 tabs 08/06/23 rosuvastatin 40 mg tablet 40 mg PO DAILY #90 tabs 09/19/23 irbesartan 75 mg tablet 75 mg PO DAILY #90 tabs 09/24/23 levothyroxine 100 mcg tablet 100 mcg PO DAILY #90 tabs 10/17/23 estradiol 0.01% (0.1 mg/gram) 1 g vaginal 2XW #42.5 grams 04/10/24 vaginal cream diclofenac sodium 1 % topical gel 4 g topical QID PRN joint pain 05/12/24 #100 grams metronidazole 500 mg tablet 500 mg PO Q8H 10 days #30 tabs 07/15/24 Allergies Allergy/AdvReac Type Severity Reaction Status Date / Time phenylephrine AdvReac Mild Hypertensio Verified 07/15/24 10:25 n Review of Systems Review of Systems Narrative: General: Positive weakness Denies fever, chills, weight loss HEENT: Denies headache, eye drainage, eye irritation, head trauma, sore throat, voice change Cardiovascular: Denies any chest pain, palpitations, tachycardia Respiratory: Denies any shortness of breath, cough, wheeze, stridor GI/: Denies any abdominal pain, nausea, vomiting, diarrhea, bright red blood per rectum, melanotic stools, urinary frequency, urinary retention, dysuria, hematuria MSK: Denies any joint pain, muscle pains, swelling Skin: Denies any rashes, lesions, discoloration Neuro: Denies any headache, lightheadedness, dizziness, fainting, weakness Psych: Denies SI/HI Patient History Medical History Diverticulitis of sigmoid colon Diverticulosis large intestine w/o perforation or abscess w/o bleeding Venous (peripheral) insufficiency Chronic low back pain Hx of papillary thyroid carcinoma Urinary incontinence Menopausal syndrome Recurrent UTI Degenerative arthritis of toe joint Fibromyalgia Generalized anxiety disorder Diverticular disease of colon (~2005) Acquired hypothyroidism Mixed hyperlipidemia Essential hypertension Degenerative joint disease of left ankle Surgical History Status post total right knee replacement (09/10/17) Status post nasal septoplasty (04/04/17) Status post thyroidectomy (~03/1994) Status post foot surgery Social History household members: spouse Smoking Status: Never smoker alcohol intake: never Smoking Status: Never smoker Exam Narrative Exam Narrative: General: Cooperative, well-developed, not in acute distress HEENT: Normocephalic, atraumatic, PERRLA, normal sclera, eyelids normal Neck: Active full range of motion, atraumatic Chest: Normal to inspection, negative crepitus, no overlying erythema ecchymosis Respiratory: Normal respiratory effort, not in acute respiratory distress, clear to auscultation bilaterally negative cough, wheeze, tachypnea, rhonchi, rales Cardiology: Regular rate rhythm negative gallop, murmur, rubs GI/: No tenderness to palpation, soft, non rigid, normal to inspection, exam deferred MSK: Full active range of motion in all 4 extremities, atraumatic, no tenderness to palpation of any bony prominences Skin: No rashes or lesions noted Neuro: Alert awake oriented x3, moves all 4 extremities spontaneously, cranial nerves intact, able to answer all questions appropriately follows commands appropriately Psych: Cooperative, negative suicidal or homicidal ideations Initial Vital Signs Initial Vital Signs: Vital Signs Temperature 97.4 F L 07/22/24 17:14 Pulse Rate 76 07/22/24 17:14 Respiratory Rate 18 07/22/24 17:14 Blood Pressure 138/65 07/22/24 17:14 Pulse Oximetry 98 07/22/24 17:14 Oxygen Delivery Method Room Air 07/22/24 17:14 Course Orders Ordered: ED Orders 07/22/24 21:20 CXR [XR chest 1V] Stat EKG-12 Lead Stat 07/22/24 21:28 Covid-19 + FLU A/B + RSV - PCR Stat 07/22/24 21:30 CBC Auto Diff [Complete Blood Count AUTO DIFF] Stat CMP [Comprehensive Metabolic Panel] Stat Lipase Stat MAG [Magnesium] Stat Troponin & CK Cardiac Panel Stat Discontinued Medications Sodium Chloride (Normal Saline 0.9%) 1,000 mls @ 1,000 mls/hr IV BOLUS ONE Stop: 07/22/24 22:24 Last Infusion: 07/22/24 22:34 Dose: Infused Documented By: Admin: 07/22/24 21:51 Dose: 1,000 mls/hr Documented By: DEVIN Vital Signs Vital signs: Vital Signs - 8 hr 07/22/24 17:14 07/22/24 18:54 07/22/24 18:55 Temperature 97.4 F L Pulse Rate 76 76 74 Respiratory Rate 18 Blood Pressure 138/65 Pulse Oximetry 98 97 96 Oxygen Delivery Method Room Air 07/22/24 18:55 07/22/24 19:00 07/22/24 19:00 Temperature Pulse Rate 70 Respiratory Rate Blood Pressure 201/88 H 162/75 H Pulse Oximetry 96 Oxygen Delivery Method 07/22/24 19:29 07/22/24 19:30 07/22/24 19:30 Temperature Pulse Rate 70 66 Respiratory Rate 18 Blood Pressure 139/66 Pulse Oximetry 95 97 Oxygen Delivery Method 07/22/24 20:00 07/22/24 20:00 07/22/24 20:32 Temperature Pulse Rate 73 65 Respiratory Rate 17 Blood Pressure 144/67 H Pulse Oximetry 97 98 Oxygen Delivery Method Room Air 07/22/24 20:32 07/22/24 21:00 07/22/24 21:00 Temperature Pulse Rate 66 Respiratory Rate Blood Pressure 145/99 H 146/69 H Pulse Oximetry 97 Oxygen Delivery Method 07/22/24 21:30 07/22/24 21:30 07/22/24 22:00 Temperature Pulse Rate 69 65 Respiratory Rate 16 Blood Pressure 151/115 H Pulse Oximetry 96 99 Oxygen Delivery Method Room Air 07/22/24 22:01 07/22/24 22:01 Temperature Pulse Rate 64 Respiratory Rate 17 Blood Pressure 187/81 H Pulse Oximetry 99 Oxygen Delivery Method Room Air MDM - Recheck/Abnormal Lab/Rx Differential Diagnosis Differential diagnosis: Likely other (ACS, pneumonia, electrolyte abnormality, COVID, flu, RSV) Lab Data 07/22/24 21:30 07/22/24 21:30 Labs: Lab Results 07/22/24 07/22/24 Range/Units 21:28 21:30 WBC 4.8 (4.5-11.0) X10^3/uL RBC 4.42 (4.0-5.2) X10^6/uL Hgb 14.3 (12.0-16.0) g/dL Hct 42.3 (36-46) % MCV 95.6 (80-100) fL MCH 32.3 (26-34) PG MCHC 33.7 (30-36) % RDW 12.9 (11.6-14.8) % Plt Count 267 (150-400) X10^3/uL Neut % (Auto) 51.3 (50-75) % Lymph % (Auto) 31.9 (25-40) % [place] % (Auto) 12.2 (3-14) % Eos % (Auto) 3.9 (2-4) % Baso % (Auto) 0.7 (0-2) % Neut # (Auto) 2500 (8801-4483) /uL Lymph # (Auto) 1500 (1133-7365) /uL [place] # (Auto) 600 (0-900) /uL Eos # (Auto) 200 (0-450) /uL Baso # (Auto) 0 (0-100) /uL Sodium 137 (137-145) mmol/L Potassium 4.0 (3.4-5.1) mmol/L Chloride 99 (98-107) mmol/L Carbon Dioxide 30 (22-32) mmol/L BUN 19 H (7-17) mg/dL Creatinine 0.67 (0.52-1.04) mg/dL Estimated GFR > 60 (>60) mL/min BUN/Creatinine Ratio 28.4 H (6-22) Glucose 103 (80-110) mg/dL Calcium 8.4 (8.4-10.2) mg/dL Magnesium 2.0 (1.6-2.3) mg/dL Total Bilirubin 0.3 (0.2-1.3) mg/dL AST 32 (14-36) IU/L ALT 23 (<35) IU/L Alkaline Phosphatase 75 (38-126) U/L Total Creatine Kinase 75 (30-135) U/L Troponin I < 0.012 (0.01-0.034) ng/mL Total Protein 6.8 (6.3-8.2) g/dL Albumin 3.9 (3.5-5.0) g/dL Globulin 2.9 (1.7-4.1) g/dL Albumin/Globulin Ratio 1.3 (1.0-2.8) Lipase 89 (23-300) U/L SARS-CoV-2 (PCR) Negative (Negative) Influenza A (RT-PCR) Flu a negative (NEGATIVE) Influenza B (RT-PCR) Flu b negative (NEGATIVE) RSV (PCR) Negative (Negative) Imaging Data Chest x-ray: Radiologist's Impression: [address] [address] XRay Report Signed Patient: Emily Archuleta MR#: [id number] : 1955 Acct:[id number] Age/Sex: 69 / F Date of Service: 07/22/24 Loc: ED Accession Number: [id number] Procedure: XR chest 1V Ordering Provider: Xavier Mccracken D.O. PROCEDURE: XR CHEST 1V INDICATIONS: weakness TECHNIQUE: One view of the chest was acquired. COMPARISON: [facility], , XR CHEST 1V, 03/14/2023, 10:11. FINDINGS: Surgical changes and devices: None. Lungs and pleura: Small alveolar opacity and slight blunting in the left lateral costophrenic sulcus. Lungs are otherwise hyperinflated but clear. Mediastinum: Mediastinal contours appear normal. Heart size is normal. Bones and chest wall: No suspicious bony lesions. Overlying soft tissues appear unremarkable. IMPRESSION: Small airspace disease in the left lateral lower lung, potentially pneumonia versus atelectasis. ECG Data Interpretation: EKG interpreted ED physician sinus 66 beats per minute, right bundle-branch block noted QTC [address] changes no STEMI occasional PAC noted MDM Narrative Medical decision making narrative: 69-year-old female history of hyperlipidemia hypertension hypothyroidism and fibromyalgia presenting for feelings of ?off and weak, states that she believes this might be secondary to all the antibiotic changes after she was diagnosed with diverticulitis here few weeks ago. Not having any new abdominal pain no nausea vomiting but states that she just feels weak. She denies any other symptoms. Patient had lab work imaging performed here in the emergency department, EKG nonischemic in nature, troponin negative, chest x-ray showing small airspace disease of the left lower lung pneumonia versus atelectasis however patient without any cough shortness of breath no leukocytosis therefore more likely atelectasis in nature as well as the fact that patient has been on Augmentin and Flagyl therefore no other indications for antibiotics. Patient's lab work otherwise unremarkable, symptoms more likely secondary to patient's decreased p.o. intake secondary to her decreased appetite, she was instructed to increase her p.o. intake and to follow up with her primary care doctor for her scheduled appointment this week. Patient was given strict return precautions she verbalized understanding of this and agrees to being discharged home with outpatient follow up Discharge Plan Departure Patient Disposition: Home Clinical Impression: Decrease in appetite Activity Restrictions/Additional Instructions: Please follow up with your primary care doctor for your scheduled appointment Please read the discharge instructions sheet carefully and bring all papers to all doctor follow-up visits, as it may contain information that your doctor may want to see. Disease processes change and evolve, if your symptoms worsen or if you develop any new symptoms that are concerning to you please return for evaluation. Your evaluation today does not show any evidence of any life- threatening/serious illnesses requiring admission to the hospital or surgery. Please follow-up with your doctor for re-evaluation in approximately 1 day. Seek immediate medical attention for any worrisome symptoms. *If you do not have a primary care provider please contact the [facility] Resource line at [phone]. They will ask some questions about your medical history and help get you set up with a doctor in the community. Prescriptions: No Action rosuvastatin 40 mg tablet 40 mg PO DAILY Qty: 90 3RF irbesartan 75 mg tablet 75 mg PO DAILY Qty: 90 3RF levothyroxine 100 mcg tablet 100 mcg PO DAILY Qty: 90 3RF estradiol 0.01 % (0.1 mg/gram) cream 1 g vaginal 2XW Qty: 42.5 3RF diclofenac sodium 1 % gel 4 g topical QID PRN (Reason: joint pain) Qty: 100 0RF Rx Instructions: apply to single elbow, wrist or hand; for hand includes palm/fingers/back of hand L. acidophilus/Bifid. animalis [Daily Probiotic] 1 tab PO DAILY dextrin [Fiber (dextrin)] 1 tsp PO DAILY duloxetine 60 mg capsule,delayed release(DR/EC) 60 mg PO DAILY Qty: 90 3RF ezetimibe 10 mg tablet 10 mg PO DAILY Qty: 90 3RF metronidazole 500 mg tablet 500 mg PO Q8H 10 Days Qty: 30 0RF d-mannose 500 mg capsule PO BID magnesium glycinate 1 tab PO BID omega-3 fatty acids Capsule 2,000 mg PO DAILY coenzyme Q10 200 mg capsule 200 mg PO DAILY iodine (kelp) 1,000 mcg PO .QOD phytonadione (vitamin K1) 100 mcg tablet 100 mcg PO DAILY cholecalciferol (vitamin D3) 50 mcg (2,000 unit) capsule 50 mcg PO DAILY Referrals: Juancarlos Lo MD [Primary Care Provider] - Stand Alone Forms: Patient Portal/API/Survey
--- NOTE | 2024-07-22 21:20 | DI.RAD.S_ITS ---
PROCEDURE: XR CHEST 1V INDICATIONS: weakness TECHNIQUE: One view of the chest was acquired. COMPARISON: [facility], CR, XR CHEST 1V, 03/14/2023, 10:11. FINDINGS: Surgical changes and devices: None. Lungs and pleura: Small alveolar opacity and slight blunting in the left lateral costophrenic sulcus. Lungs are otherwise hyperinflated but clear. Mediastinum: Mediastinal contours appear normal. Heart size is normal. Bones and chest wall: No suspicious bony lesions. Overlying soft tissues appear unremarkable. IMPRESSION: Small airspace disease in the left lateral lower lung, potentially pneumonia versus atelectasis. Dictated by: Génesis Romeo M.D. on 07/22/2024 at 21:57 Approved by: Génesis Romeo M.D. on 07/22/2024 at 21:58
--- NOTE | 2024-07-22 21:20 | EKG_ITS ---
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
[2024-07-22] MEDS: SODIUM CHLORIDE 0.9% 1,000 ML 1000 ML IV (21:51)
[2024-07-22 21:54] LABS: Add Manual Diff / Slide Review NO; Basophils Absolute Auto 0 /uL (0-100); Basophils Percent Auto 0.7 % (0-2); Eosinophils Absolute Auto 200 /uL (0-450); Eosinophils Percent Auto 3.9 % (2-4); Hematocrit 42.3 % (36-46); Hemoglobin 14.3 g/dL (12.0-16.0); Lymphocytes Absolute Auto 1500 /uL (1100-4500); Lymphocytes Percent Auto 31.9 % (25-40); Mean Corpuscular HGB Conc 33.7 % (30-36); Mean Corpuscular Hemoglobin 32.3 PG (26-34); Mean Corpuscular Volume 95.6 fL (80-100); Monocytes Absolute Auto 600 /uL (0-900); Monocytes Percent Auto 12.2 % (3-14); Neutrophils Absolute Auto 2500 /uL (1500-7000); Neutrophils Percent Auto 51.3 % (50-75); Platelet Count 267 X10^3/uL (150-400); Red Blood Cell Count 4.42 X10^6/uL (4.0-5.2); Red Cell Distribution Width 12.9 % (11.6-14.8); White Blood Cell Count 4.8 X10^3/uL (4.5-11.0)
[2024-07-22 22:08] LABS: Alanine Aminotransferase 23 IU/L (<35); Albumin 3.9 g/dL (3.5-5.0); Albumin Globulin Ratio 1.3 (1.0-2.8); Alkaline Phosphatase 75 U/L (38-126); Aspartate Aminotransferase 32 IU/L (14-36); BUN Creatinine Ratio 28.4 (6-22); Bilirubin Total 0.3 mg/dL (0.2-1.3); Blood Urea Nitrogen 19 mg/dL (7-17); Calcium 8.4 mg/dL (8.4-10.2); Carbon Dioxide 30 mmol/L (22-32); Chloride 99 mmol/L (98-107); Creatine Kinase 75 U/L (30-135); Estimated Glomerular Filt Rate > 60 mL/min (>60); Globulin 2.9 g/dL (1.7-4.1); Glucose 103 mg/dL (80-110); HEMOLYSIS < 15 (0-50); Lipase 89 U/L (23-300); Sodium 137 mmol/L (137-145); Total Protein 6.8 g/dL (6.3-8.2)
[2024-07-22 22:19] LABS: Troponin I < 0.012 ng/mL (0.01-0.034)
[2024-07-22 22:32] LABS: Influenza A - CEPHEID Flu A NEGATIVE (NEGATIVE); Influenza B - CEPHEID Flu B NEGATIVE (NEGATIVE); Respiratory Syncytial Virus Negative (Negative)
[2024-07-22 22:39] LABS: COVID-19 CEPHEID 4-PLEX PCR Negative (Negative)
== END 2024-07-22 23:14 | disposition home or self-care (01) ==
PROVIDERS: Emergency Provider Student in an Organized Health Care Education/Training Program; Family Provider Internal Medicine; PCP Internal Medicine
DX: R63.0 Anorexia (principal); R53.1 Weakness; I45.10 Unspecified right bundle-branch block; Z68.21 Body mass index [BMI] 21.0-21.9, adult
CPT/HCPCS: 0241U; 36415; 71045; 80053; 82550; 83690; 83735; 84484; 85025; 93005; 96360; 99284

== ENCOUNTER → 2024-07-30 14:58 | Outpatient (CLI) | payer MEDICARE, SELFPAY ==
[2024-07-30 15:23] LABS: Appearance Urine UA CLEAR; Bilirubin Urine UA NEGATIVE (NEGATIVE); Color Urine UA YELLOW; Glucose Urine UA NEGATIVE (Negative); Ketones Urine UA NEGATIVE (NEGATIVE); Leukocyte Esterase Urine UA 1+ (NEGATIVE); Nitrite Urine UA NEGATIVE (Negative); Occult Blood Urine UA 1+ (Negative); Protein Urine UA NEGATIVE (Negative); Specific Gravity Urine UA <=1.005 (1.000-1.035); Urobilinogen Urine UA 0.2 E.U./dL (0.2)
[2024-07-30 15:39] LABS: Bacteria Urine Few (2-10); Culture Indicated Urine Specimen Cultured; RBC Urine 1-5/HPF (0-5/HPF); Squamous Epithelial Cell Urine 5-10 /HPF (0-5/HPF); Urine Volume 10mL (spun); WBC Urine 10-30/HPF (0-5/HPF)
== END ==
PROVIDERS: Family Provider Internal Medicine; PCP Internal Medicine; Referring Provider Internal Medicine; Visit Provider Internal Medicine
DX: R30.0 Dysuria (principal); R35.0 Frequency of micturition
CPT/HCPCS: 81001; 87086

== ENCOUNTER → 2024-08-13 07:45 | Outpatient (CLI) | payer MEDICARE, SELFPAY ==
[2024-08-13 09:05] LABS: Cholesterol 142 mg/dL (140-199); HDL Cholesterol 58 mg/dL (40-60); LDL Cholesterol Calculated 66 mg/dL (<100); Triglycerides 91 mg/dL (35-150)
[2024-08-13 09:36] LABS: TSH w/ Reflex to FT4 0.29 uIU/mL (0.47-4.68)
[2024-08-13 10:01] LABS: Free T4, Direct Thyroxine 1.55 ng/dL (0.78-2.19)
--- NOTE | 2024-08-13 10:37 | DI.RAD.S_ITS ---
PROCEDURE: XR ANKLE RT MIN 3V INDICATIONS: Sprain of unspecified ligament of right ankle, initial encou TECHNIQUE: 3 views of the ankle were acquired. COMPARISON: [facility], CR, XR ANKLE RT MIN 3V, 05/17/2024, 10:12. [facility], CR, XR ANKLE RT MIN 3V, 05/20/2021, 15:58. FINDINGS: No acute fracture or dislocation. The ankle mortise is preserved on the nonweightbearing view. No talar dome osteochondral defect. Hyperostosis along the lateral process of the talus and distal fibula. Chronic, ununited medial malleolar fracture fragment. Vascular phleboliths along the anterior calf. Small osteophytes along the dorsal talar neck and anterior tibial plafond. Partially identified 1st TMT arthrodesis hardware. Mild tibiotalar osteoarthritis. No significant joint effusion. IMPRESSION: 1. Dorsal talar neck and anterior tibial plafond osteophyte formation, which can be seen with anterior ankle impingement pathology. 2. Hyperostosis at the lateral process of the talus and distal fibula, which can be seen with sub fibular impingement. 3. No acute fracture or dislocation. Dictated by: Nilson Weeks M.D. on 08/13/2024 at 12:20 Approved by: Nilson Weeks M.D. on 08/13/2024 at 12:27
== END ==
LOC: LAB 07:47 → RAD 10:36
PROVIDERS: Family Provider Internal Medicine; PCP Internal Medicine; Referring Provider Podiatrist; Visit Provider Podiatrist
DX: S93.401A Sprain of unspecified ligament of right ankle, initial encounter (principal); M19.071 Primary osteoarthritis, right ankle and foot; E03.9 Hypothyroidism, unspecified; E78.2 Mixed hyperlipidemia; X58.XXXA Exposure to other specified factors, initial encounter
CPT/HCPCS: 36415; 73610; 80061; 84439; 84443

== ENCOUNTER → 2024-08-28 14:55 | Outpatient (CLI) | payer MEDICARE, SELFPAY ==
--- NOTE | 2024-08-28 15:04 | DI.RAD.S_ITS ---
PROCEDURE: XR ANKLE RT MIN 3V INDICATIONS: right ankle pain, twisted TECHNIQUE: 3 views of the ankle were acquired. COMPARISON: [facility], CR, XR ANKLE RT MIN 3V, 08/13/2024, 10:33. [facility], CR, XR ANKLE RT MIN 3V, 05/17/2024, 10:12. FINDINGS: Bones: No acute fractures or dislocations. Postsurgical changes are partially included in the 1st metatarsal. Chronic calcifications are seen adjacent to the medial malleolus related to remote prior injury. Ankle mortise is normally aligned. No suspicious bony lesions. Small posterior calcaneal enthesophyte. Soft tissues: Soft tissue edema is most prominent over the lateral malleolus. IMPRESSION: Nonspecific soft tissue edema over the lateral malleolus. No acute osseous abnormality. If there is continued clinical concern or persistent symptoms, repeat radiographs or cross-sectional imaging (e.g. CT, MRI) may be helpful for further evaluation. Approved by: Nathanael Frias M.D. on 08/28/2024 at 19:14
== END ==
PROVIDERS: Family Provider Internal Medicine; PCP Internal Medicine; Referring Provider Internal Medicine; Visit Provider Internal Medicine
DX: S93.409A Sprain of unspecified ligament of unspecified ankle, initial encounter (principal); M25.571 Pain in right ankle and joints of right foot; M79.89 Other specified soft tissue disorders
CPT/HCPCS: 73610

== ENCOUNTER → 2024-09-01 17:48 | Outpatient (CLI) | payer MEDICARE, SELFPAY ==
[2024-09-01 18:12] LABS: Appearance Urine UA CLEAR; Bilirubin Urine UA NEGATIVE (NEGATIVE); Color Urine UA YELLOW; Glucose Urine UA NEGATIVE (Negative); Ketones Urine UA NEGATIVE (NEGATIVE); Leukocyte Esterase Urine UA 3+ (NEGATIVE); Nitrite Urine UA NEGATIVE (Negative); Occult Blood Urine UA 1+ (Negative); Protein Urine UA NEGATIVE (Negative); Specific Gravity Urine UA 1.015 (1.000-1.035); Urobilinogen Urine UA 0.2 E.U./dL (0.2); pH Urine UA 7.5 (4.5-8.0)
[2024-09-01 18:17] LABS: Bacteria Urine Moderate (10-30); Culture Indicated Urine Specimen Cultured; RBC Urine 0-1/HPF (0-5/HPF); Squamous Epithelial Cell Urine 0-1 /HPF (0-5/HPF); Urine Volume 10mL (spun); WBC Urine 10-30/HPF (0-5/HPF)
== END ==
PROVIDERS: Family Provider Internal Medicine; PCP Internal Medicine; Referring Provider Internal Medicine; Visit Provider Internal Medicine
DX: R35.0 Frequency of micturition (principal)
CPT/HCPCS: 81001; 87086

== ENCOUNTER → 2024-09-06 09:13 | Outpatient (CLI) | payer MEDICARE, SELFPAY | LOC: LAB 09:14 | PROVIDERS: Family Provider Internal Medicine; PCP Internal Medicine; Visit Provider Nurse Practitioner Family | DX: M54.50 Low back pain, unspecified (principal) | CPT/HCPCS: 87086 ==

== ENCOUNTER → 2024-09-25 16:26 | Outpatient (CLI) | payer MEDICARE, SELFPAY ==
[2024-09-25 17:57] LABS: Appearance Urine UA CLEAR; Bilirubin Urine UA NEGATIVE (NEGATIVE); Color Urine UA YELLOW; Glucose Urine UA NEGATIVE (Negative); Ketones Urine UA NEGATIVE (NEGATIVE); Leukocyte Esterase Urine UA 2+ (NEGATIVE); Nitrite Urine UA NEGATIVE (Negative); Occult Blood Urine UA 1+ (Negative); Protein Urine UA NEGATIVE (Negative); Specific Gravity Urine UA <=1.005 (1.000-1.035); Urobilinogen Urine UA 0.2 E.U./dL (0.2)
[2024-09-25 18:04] LABS: pH Urine UA 6.5 (4.5-8.0)
[2024-09-25 18:06] LABS: Bacteria Urine Few (2-10); Culture Indicated Urine Specimen Cultured; RBC Urine 0-1/HPF (0-5/HPF); Squamous Epithelial Cell Urine 0-1 /HPF (0-5/HPF); Urine Volume 10mL (spun); WBC Urine 10-30/HPF (0-5/HPF)
== END ==
PROVIDERS: Family Provider Internal Medicine; PCP Internal Medicine; Referring Provider Internal Medicine; Visit Provider Internal Medicine
DX: N39.0 Urinary tract infection, site not specified (principal)
CPT/HCPCS: 81001; 87086

== ENCOUNTER → 2025-01-14 12:47 | Outpatient (CLI) | payer MEDICARE, SELFPAY ==
--- NOTE | 2025-01-14 12:48 | DI.MG.S_ITS ---
MM screening mammo BI: 01/14/2025. BI-RADS: 1 CLINICAL: 69-year old female for bilateral screening mammogram. Tyrer-Cuzick lifetime risk of 4.3%. No personal or first-degree family history of breast cancer. PRIOR EXAMS 12/06/2023, 09/23/2020, Outside priors - 11/20/2022, 09/28/2021, 09/23/2019. MAMMOGRAPHY TECHNIQUE: 2D and 3D (tomosynthesis) digital mammographic views obtained, with additional images as needed for full coverage. Current study was also evaluated with a Computer Aided Detection (CAD) system. DENSITY C. The breasts are heterogeneously dense, which may obscure small masses. MAMMOGRAPHY FINDINGS Bilateral: No suspicious mass, asymmetry, microcalcification, or other abnormality seen. IMPRESSION: * No evidence of malignancy. RECOMMENDATIONS Bilateral * Annual screening mammography. OVERALL ASSESSMENT CATEGORY BI-RADS-1: Negative. The [employer] [place] [employer] recommends annual screening mammography beginning at age 40 for women with average risk of breast cancer. ELECTRONICALLY SIGNED: Kristi Paredes M.D. on 01/14/2025 at 04:15:02 PM PT Interpreting Station ID: [id number]
== END ==
LOC: MAMMO 12:47
PROVIDERS: PCP Internal Medicine; Referring Provider Internal Medicine; Visit Provider Internal Medicine
DX: Z12.31 Encounter for screening mammogram for malignant neoplasm of breast (principal); R92.333 Mammographic heterogeneous density, bilateral breasts
CPT/HCPCS: 77063; 77067

== ENCOUNTER → 2025-02-06 16:26 | Outpatient (CLI) | payer MEDICARE, SELFPAY ==
[2025-02-06 17:17] LABS: Influenza A - CEPHEID Flu A NEGATIVE (NEGATIVE); Influenza B - CEPHEID Flu B NEGATIVE (NEGATIVE)
[2025-02-06 17:26] LABS: COVID-19 CEPHEID 4-PLEX PCR Negative (Negative)
== END ==
LOC: LAB 16:29
PROVIDERS: PCP Internal Medicine; Visit Provider Chiropractor
DX: R05.1 Acute cough (principal)
CPT/HCPCS: 87637

== ENCOUNTER → 2025-03-25 16:19 | Outpatient (CLI) | payer MEDICARE, SELFPAY ==
[2025-03-25 16:51] LABS: Appearance Urine UA CLEAR; Bilirubin Urine UA NEGATIVE (NEGATIVE); Color Urine UA YELLOW; Glucose Urine UA NEGATIVE (Negative); Ketones Urine UA NEGATIVE (NEGATIVE); Leukocyte Esterase Urine UA NEGATIVE (NEGATIVE); Nitrite Urine UA NEGATIVE (Negative); Occult Blood Urine UA TRACE-INTACT (Negative); Protein Urine UA NEGATIVE (Negative); Specific Gravity Urine UA <=1.005 (1.000-1.035); Urobilinogen Urine UA 0.2 E.U./dL (0.2)
[2025-03-25 17:21] LABS: pH Urine UA 7.0 (4.5-8.0)
[2025-03-25 17:23] LABS: Culture Indicated Urine Cult Not Indicated
== END ==
PROVIDERS: PCP Internal Medicine; Referring Provider Internal Medicine; Visit Provider Internal Medicine
DX: N39.0 Urinary tract infection, site not specified (principal); N95.1 Menopausal and female climacteric states
CPT/HCPCS: 81001